=== PATIENT | female | born 1945 | race Caucasian/White ===

== ENCOUNTER 2023-06-09 08:07 | Outpatient (OUT) | payer MEDICARE, SELFPAY ==
[2023-06-09 08:29] LABS: Basophils Absolute Auto 0.1 10^3/uL (0.0-0.1); Basophils Percent Auto 1.6 % (0.2-2.0); Eosinophils Absolute Auto 0.4 10^3/uL (0.0-0.7); Eosinophils Percent Auto 7.4 % (0.9-7.0); Hematocrit 42.4 % (36.0-48.0); Hemoglobin 13.8 g/dL (12.0-16.0); Immature Granulocytes Abs Auto 0.01 10^3/uL (0.00-0.03); Immature Granulocytes Pct Auto 0.2 % (0.0-0.5); Lymphocytes Absolute Auto 1.6 10^3/uL (1.2-3.8); Lymphocytes Percent Auto 30.4 % (20.5-60.0); Mean Corpuscular HGB Conc 32.5 g/dL (29.9-35.2); Mean Corpuscular Hemoglobin 29.7 pg (26.7-34.0); Mean Corpuscular Volume 91.4 fL (81.0-99.0); Mean Platelet Volume 10.7 fL (9.5-13.5); Monocytes Absolute Auto 0.5 10^3/uL (0.3-0.8); Monocytes Percent Auto 9.1 % (1.7-12.0); Neutrophils Absolute Auto 2.7 10^3/uL (1.4-6.5); Neutrophils Percent Auto 51.3 % (43.0-75.0); Platelet Count 252 10^3/uL (150-450); Red Blood Count 4.64 10^6/uL (4.20-5.40); Red Cell Distribution Width 13.2 % (11.0-15.0); White Blood Count 5.2 10^3/uL (4.0-11.0)
[2023-06-09 09:15] LABS: Creatinine Urine Random 65.69 mg/dL (20.00-300.00); Microalbum Creatinine Ratio Ur 19.7 mg/g (0.0-29.9); Microalbumin Urine Random <1.3 mg/dL (<=30.0)
[2023-06-09 09:39] LABS: Potassium 4.1 mmol/L (3.5-5.1); Sodium 143 mmol/L (136-145)
[2023-06-09 09:40] LABS: Alanine Aminotransferase 32 U/L (14-59); Albumin Globulin Ratio 0.9; Albumin Level 3.2 g/dL (3.4-5.0); Alkaline Phosphatase 119 U/L (46-116); Anion Gap 11.3; Aspartate Amino Transferase 23 U/L (15-37); BUN Creatinine Ratio 11.4; Bilirubin Total 0.6 mg/dL (0.2-1.0); Calcium 9.3 mg/dL (8.5-10.1); Carbon Dioxide 29.8 mmol/L (21.0-32.0); Chloride 106 mmol/L (98-107); Estimated GFR (African America >60 (>=60); Estimated GFR (Non-African Ame >60 (>=60); Globulin 3.7 g/dL; Glucose 112 mg/dL (74-106); Total Protein 6.9 g/dL (6.4-8.2); Triglycerides 76 mg/dL (<=150); VLDL CHOLESTEROL 15.2 mg/dL
[2023-06-09 09:41] LABS: Chol HDL Ratio 2.3; Cholesterol 140 mg/dL (<=200); HDL Cholesterol 60 mg/dL (40-60)
== END 2023-06-09 08:08 | disposition home or self-care (01) ==
LOC: LAB 08:11
PROVIDERS: PCP Family Medicine; Visit Provider Family Medicine
DX: Z00.00 Encounter for general adult medical examination without abnormal findings (principal); E11.9 Type 2 diabetes mellitus without complications; Z79.4 Long term (current) use of insulin; E03.9 Hypothyroidism, unspecified; E78.00 Pure hypercholesterolemia, unspecified; I10 Essential (primary) hypertension
CPT/HCPCS: 36415; 80053; 80061; 82043; 82570; 84443; 85025

== ENCOUNTER 2023-07-27 10:20 | Outpatient (OUT) | payer MEDICARE, SELFPAY ==
--- NOTE | 2023-07-27 10:23 | XR_ITS ---
The [address] [address] Patient Name: EMILE EVANS MRN: [id number] date: 1945 Sex: F Assigned Patient Location: [facility] Current Patient Location: [facility] Accession/Order Number: [id number] Exam Date: 07/27/2023 10:37 Report Date: 07/27/2023 11:24 At the request of: ALEIDA PUTNAM Procedure: XR DEXA axial skeleton EXAMINATION: XR DEXA axial skeleton, 07/27/2023 10:37 AM EDT HISTORY: Estrogen Deficiency E28.39 COMPARISON: 2021, 2017, 2015 TECHNIQUE: Dual-energy X-ray absorptiometry (DEXA) bone density study performed for the axial skeleton. HISTORY: Estrogen Deficiency E28.39 FINDINGS: Bone mineral density AP spine L1-L4 measures 1.325 g/sq cm. 2.2% improvement from the prior exam. T score 1.2. WHO classification: Normal. The lowest bone mineral densities in the right femoral neck measuring 0.916 g/sq cm. This is a 2.7% reduction from the prior exam. T score -0.9. WHO classification: Normal XR/XR DEXA axial skeleton IMPRESSION: Normal bone mineral density. Low fracture risk Electronically authenticated by: CORY MATHEWS Date: 07/27/2023 11:24
--- OUTSIDE RECORDS SUMMARY | 2023-07-27 10:43 | XMS_ITS ---
Patient Summarization (C-CDA 2.1 CCD) Created on: July 27, 2023 LESLIE CHILDERS : 1945 Sex: Female Author Organization Sample organization Care Team Providers Care Liquor Clerk Name Role Phone ISABEL, DR CURTIS Admitting Unavailable ISABEL, DR CURTIS Attending Unavailable INDY, DR SHIN Primary Care Unavailable ZIEBER, DR MARK Asher Consulting Unavailable ISABEL, DR CURTIS Consulting Unavailable LANDRY, ANUEL Admitting Unavailable LANDRY, ANUEL Attending Unavailable INDY, DR SHIN Primary Care Unavailable ZIEBER, DR MARK Asher Consulting Unavailable LANDRY, ANUEL Consulting Unavailable ISABEL, DR CURTIS Admitting Unavailable ISABEL, DR CURTIS Attending Unavailable INDY, DR SHIN Primary Care Unavailable ZIEBER, DR MARK Asher Consulting Unavailable ISABEL, DR CURTIS Consulting Unavailable INDY, DR SHIN Primary Care Unavailable REINECK, DR GABE Webster Admitting Unavailabl e REINECK, DR GABE Webster Attending Unavailabl e REINECK, DR GABE Webster Consulting Unavailabl e ZIEBER, DR MARK Asher Consulting Unavailable Indy, MD Paloma Barriga Primary Care Provider DO Tio Amin Attending Provider Paloma Putnam Primary Care Unavailable Tio Amin Attending Unavailable Tio Amin Admitting Unavailable CHAMP HERRERA Attending Unavailable PALOMA PUTNAM Attending Unavailable CHAMP HERRERA Attending Unavailable ARELY ZHOU Attending Unavailable ARELY ZHOU Referring Unavailable ARELY ZHOU Attending Unavailable CHAMP HERRERA Attending Unavailable ARELY ZHOU Referring Unavailable ARELY ZHOU Attending Unavailable ARELY ZHOU Referring Unavailable ARELY ZHOU Referring Unavailable Encounters Encounter Date Encounter Type Care Provider Facility Start: 07-22-2023 End: 07-22-2023 ambulatory ARELY ZHOU Not Available Start: 07-21-2023 End: 07-21-2023 ambulatory ARELY ZHOU Not Available Start: 07-14-2023 End: 07-14-2023 ambulatory ARELY Duggan WINNIE Not Available Start: 07-07-2023 End: 07-07-2023 ambulatory ARELY Duggan WINNIE Not Available Start: 07-02-2023 End: 07-02-2023 ambulatory CHAMP A JAVIER Not Available Start: 06-02-2023 End: 06-02-2023 ambulatory PALOMA PUTNAM Not Available Start: 04-23-2023 End: 04-23-2023 ambulatory CHAMP HERRERA Not Available Start: 04-17-2023 End: 04-17-2023 ambulatory Paloma Putnam Facility:[facility] Start: 01-29-2023 End: 01-29-2023 ambulatory CHAMP HERRERA Not Available Start: 04-15-2022 End: 04-15-2022 ambulatory MD Paloma Putnam Work Phone: [facility] Work Phone: Start: 04-15-2022 End: 04-15-2022 Patient encounter procedure MD Paloma Putnam Work Phone: [facility] Work Phone: Start: 06-04-2021 End: 06-05-2021 ambulatory ANUEL ALATORRE Facility:[facility] Start: 12-12-2020 End: 12-13-[address] KIRSTEN HALL Facility:[facility] Start: 12-07-2020 End: 12-08-[address] KIRSTEN HALL Facility:[facility] Start: 09-12-2020 End: 09-12-[address] PALOMA PUTNAM Facility:[facility] Payers Date Payer Category Payer Self-pay [id number] 2022 Private Health Insurance [id number] 1958 Medicare [id number] 1959 Medicare [id number] 1945 [facility] [id number] 1945 Unknown [id number] 2.16.840.1.700123.3.579.2.593 1945 Unknown [id number] 2.16.840.1.373142.3.579.2.593 1945 Unknown [id number] 2.16.840.1.615919.3.579.2.593 1945 Unknown [id number] 2.16.840.1.063121.3.579.2.125 9 1945 Unknown [id number] 2.16.840.1.229819.3.579.2.125 9 1945 Unknown [id number] 2.16.840.1.775491.3.579.2.125 9 1945 Unknown [id number] 2.16.840.1.005981.3.579.2.125 9 1945 Unknown [id number] 2.16.840.1.113001.3.579.2.125 9 1945 Unknown [id number] 2.16.840.1.171283.3.579.2.125 9 1945 Unknown [id number] 2.16.840.1.801587.3.579.2.125 9 1945 Unknown [id number] 2.16.840.1.932628.3.579.2.125 9 1945 Unknown [id number] 2.16.840.1.736682.3.579.2.125 9 1945 Unknown [id number] 2.16.840.1.428078.3.579.2.125 9 1945 Unknown [id number] 2.16.840.1.662905.3.579.2.125 9 Medicare Medicare Outpatient [id number] [id number] Unknown [place] BC/BS [id number] Unknown [id number] 2.16.840.1.897641.3.579.2.531 Problems Active Problems Problem Classification Problem Date Documented Da te Episodic/Chronic Menopausal disorders (4 sources) Other primary ovarian failure; 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-2021 Chronic Unclassified (1 source) Encounter for screening mammogram for malignant neoplasm of breast; Translations: [Encounter for screening mammogram for malignant neoplasm of breast] Onset: 04-17-2023 Past or Other Problems Problem Classification Problem Date Documented Da te Episodic/Chronic Nonmalignant breast conditions (5 sources) Unspecified lump in the left breast, unspecified quadrant; Translations: [Unspecified lump in the left breast, upper inner quadrant] Onset: 12-12-2020 Episodic Other aftercare (1 source) 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; Translations: [OTH JAIL CURRENT DRUG THERAPY] Onset: 09-14-2020 Episodic Other connective tissue disease (3 sources) Facial weakness; Translations: [FACIAL WEAKNESS] Onset: 09-12-2020 Episodic Other nervous system disorders (1 source) Molina's palsy; 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] Onset: 09-14-2020 Episodic Other screening for suspected conditions (not mental disorders or infectious disease) (5 sources) Other abnormal and inconclusive findings on diagnostic imaging of breast; Translations: [Encounter for screening mammogram for malignant neoplasm of breast] Onset: 12-07-2020 Episodic Residual codes; unclassified (1 source) Family history of malignant neoplasm of digestive organs; Translations: [FAM HX MALIG NEOPLASM DIGESTIV ORGN] Onset: 12-14-2020 Episodic Residual codes; unclassified (1 source) Family history of malignant neoplasm of bladder; Translations: [FAM HX MALIGNANT NEOPLASM BLADDER] Onset: 12-14-2020 Episodic Residual codes; unclassified (1 source) Family history of malignant neoplasm of prostate; Translations: [FAMILY HX MALIG NEOPLASM PROSTATE] Onset: 12-14-2020 Episodic Procedures Date Procedure Procedure Detail Performing Clinician Start: 04-15-2022 Screening mammograph y of bilateral breasts MD Paloma Putnam Work Phone: Results Test Name Value Interpretation Reference Range Facility MM screening mammo BI w/CADo n 04-17-2023 MM screening mammo BI w/CAD [facility] [place] [address] [place] [address] Mammography Report Signed Patient: Leslie Childers MR#: [id number] : 1945 Acct:[id number] Age/Sex: 78 / F ADM Date: 04/17/23 Loc: [place] Room: Type: [facility] Attending Dr: Tio Amin DO Copies to: MD Tio Hernández DO Ordering Provider: Tio Amin DO Date of Service: 04/17/23 MM/MM screening mammo BI w/CAD: SCREENING CLINICAL DATA: Screening for malignancy. SCREENING MAMMOGRAM - FULL FIELD DIGITAL WITH TOMOSYNTHESIS AND CAD COMPARISON:Mammograms dating back to 2020. Tomosynthesis craniocaudal and mediolateral oblique views of both breasts were obtained using low- dose digital technique. This examination was reviewed with the aid of CAD. FINDINGS: The breast tissue is composed of scattered fibroglandular densities. There are no dominant masses, typically malignant calcifications or architectural distortion. There has been no significant interval change. MM/MM screening mammo BI w/CAD IMPRESSION: NO MAMMOGRAPHIC EVIDENCE OF MALIGNANCY. ROUTINE FOLLOW-UP IS RECOMMENDED IN ONE YEAR. RESULT CODE: 1 Negative DENSITY CODE: 2 (approximately 25-50% glandular) FOLLOW UP: 1YR The false-negative rate of mammography is approximately 10-percent. Management of a palpable abnormality must be based on clinical grounds. Patient was entered into a reminder system with a target due date for the next mammogram. Impression dictated by: Iglesia Katz Jr., D.O.04/17/2023 12:21 PM Dictation Location: [facility] Transcribed By: [facility] 04/17/23 1221 Dictated By: Iglesia Katz Jr, DO 04/17/23 1220 Signed By: 04/17/23 1221 [facility] XR DEXA BONE DENSITYon 06-04 XR DEXA BONE DENSITY EXAMINATION: XR DEXA BONE DENSITY, 06/04/2021 9:56 AM EDT HISTORY: Primary ovarian failure COMPARISON: DEXA bone densitometry 10/29/2017 TECHNIQUE: Dual-energy X-ray absorptiometry (DEXA) bone density study performed for the axial skeleton. FINDINGS: SPINE ANALYSIS: Average bone mineral density is 1.296 g/cm2. T-score (standard deviation relative to young adult mean): 1.0 . +5.2% change since prior study. HIP ANALYSIS: Lowest bone mineral density is within the right femoral neck, 0.941 g/cm2. T-score (standard deviation relative to young adult mean): -0.7 . -3.0% change since prior study. IMPRESSION: [employer] Classification: Normal - Low Fracture Risk Electronically authenticated by: MARK CHARLES Date: 2021-06-04 10:25 Normal [facility] Complete Blood Count with Au to Diffon 01-31-2021 Basophils (Bld) [#/Vol] 0.06 10*3/uL Normal 0.00-0.20 [facility] Specialist Comment on above: Performed By: #### C BCAD, CMP, LIPD, TSH #### [facility] [address] [place], [place] [id number] Basophils/100 WBC (Bld) 1.2 % Normal [facility] Specialist Comment on above: Performed By: #### C BCAD, CMP, LIPD, TSH #### [facility] [address] [place], [place] [id number] Eosinophils (Bld) [#/Vol] 0.22 10*3/uL Normal 0.02-0.50 [facility] Specialist Comment on above: Performed By: #### C BCAD, CMP, LIPD, TSH #### [facility] [address] [place], [place] [id number] Eosinophils/100 WBC (Bld) 4.4 % Normal [facility] Specialist Comment on above: Performed By: #### C BCAD, CMP, LIPD, TSH #### [facility] [address] [place], [place] [id number] Erythrocyte distribution width (RBC) [Ratio] 13.2 % Normal 11.0-15.0 [facility] Specialist Comment on above: Performed By: #### C BCAD, CMP, LIPD, TSH #### [facility] [address] [place], [place] [id number] Hematocrit (Bld) [Volume fraction] 48.5 % High 35.0-47.0 [facility] Specialist Comment on above: Performed By: #### C BCAD, CMP, LIPD, TSH #### [facility] [address] [place], [place] [id number] Hemoglobin (Bld) [Mass/Vol] 15.7 g/dL High 11.6-15.5 [facility] Specialist Comment on above: Performed By: #### C BCAD, CMP, LIPD, TSH #### [facility] [address] [place], [place] [id number] Lymphocytes (Bld) [#/Vol] 1.3 10*3/uL Normal 0.9-3.9 [facility] Specialist Comment on above: Performed By: #### C BCAD, CMP, LIPD, TSH #### [facility] [address] [place], [place] [id number] Lymphocytes/100 WBC (Bld) 26.9 % Normal [facility] Specialist Comment on above: Performed By: #### C BCAD, CMP, LIPD, TSH #### [facility] [address] [place], [place] [id number] MCH (RBC) [Entitic mass] 29.6 pg Normal 27.0-33.0 [facility] Specialist Comment on above: Performed By: #### C BCAD, CMP, LIPD, TSH #### [facility] [address] [place], [place] [id number] MCHC (RBC) [Mass/Vol] 32.4 g/dL Normal 32.0-36.0 [facility] Specialist Comment on above: Performed By: #### C BCAD, CMP, LIPD, TSH #### [facility] [address] [place], [place] [id number] MCV (RBC) [Entitic vol] 92 fL Normal 80-100 [facility] Specialist Comment on above: Performed By: #### C BCAD, CMP, LIPD, TSH #### [facility] [address] [place], [place] [id number] Monocytes (Bld) [#/Vol] 0.4 10*3/uL Normal 0.2-0.9 [facility] Specialist Comment on above: Performed By: #### C BCAD, CMP, LIPD, TSH #### [facility] [address] [place], [place] [id number] Monocytes/100 WBC (Bld) 7.4 % Normal [facility] Specialist Comment on above: Performed By: #### C BCAD, CMP, LIPD, TSH #### [facility] [address] [place], [place] [id number] Neutrophils (Bld) [#/Vol] 3.0 10*3/uL Normal 1.5-7.8 [facility] Specialist Comment on above: Performed By: #### C BCAD, CMP, LIPD, TSH #### [facility] [address] [place], [place] [id number] Neutrophils/100 WBC (Bld) 59.7 % Normal [facility] Specialist Comment on above: Performed By: #### C BCAD, CMP, LIPD, TSH #### [facility] [address] [place], [place] [id number] Platelet mean volume (Bld) [Entitic vol] 12.20 fL Normal 7.50-12.50 [facility] Specialist Comment on above: Performed By: #### C BCAD, CMP, LIPD, TSH #### [facility] [address] [place], [place] [id number] Platelets (Bld) [#/Vol] 167 10*3/uL Normal 140-400 [facility] Specialist Comment on above: Performed By: #### C BCAD, CMP, LIPD, TSH #### [facility] [address] [place], [place] [id number] RBC (Bld) [#/Vol] 5.30 10*6/uL High 3.90-5.20 [facility] Specialist Comment on above: Performed By: #### C BCAD, CMP, LIPD, TSH #### [facility] [address] [place], [place] [id number] RDW-SD 44.4 fL Normal 37.0-50.0 [facility] Specialist Comment on above: Performed By: #### C BCAD, CMP, LIPD, TSH #### [facility] [address] [place], [place] [id number] WBC (Bld) [#/Vol] 5.0 10*3/uL Normal 3.8-11.0 [facility] Tests Superintendent Comment on above: Performed By: #### C BCAD, CMP, LIPD, TSH #### [facility] [address] [place], [place] [id number] Comprehensive Metabolic Pane alexx 01-31-2021 Albumin [Mass/Vol] 4.4 g/dL Normal 3.6-5.1 [facility] Tests Superintendent Comment on above: Performed By: #### C BCAD, CMP, LIPD, TSH #### [facility] [address] [place], [place] [id number] Albumin/Globulin [Mass ratio] 1.9 {ratio} Normal 1.0-2.5 [facility] Specialist Comment on above: Performed By: #### C BCAD, CMP, LIPD, TSH #### [facility] [address] [place], [place] [id number] ALP [Catalytic activity/Vol] 106 U/L Normal 35-119 [facility] Specialist Comment on above: Performed By: #### C BCAD, CMP, LIPD, TSH #### [facility] [address] [place], [place] [id number] ALT [Catalytic activity/Vol] 16 U/L Normal 6-33 [facility] Specialist Comment on above: Result Comment: 01/16 Female reference range changed. Performed By: #### C BCAD, CMP, LIPD, TSH #### [facility] [address] [place], [place] [id number] Anion gap [Moles/Vol] 20 mmol/L Normal 12-20 [facility] Specialist Comment on above: Result Comment: Effe ctive 02/21/2019 reference range changed. Performed By: #### C BCAD, CMP, LIPD, TSH #### [facility] [address] [place], [place] [id number] AST [Catalytic activity/Vol] 22 U/L Normal 9-34 [facility] Specialist Comment on above: Performed By: #### C BCAD, CMP, LIPD, TSH #### [facility] [address] [place], [place] [id number] Bilirubin [Mass/Vol] 0.49 mg/dL Normal 0.30-1.20 [facility] Specialist Comment on above: Performed By: #### C BCAD, CMP, LIPD, TSH #### [facility] [address] [place], [place] [id number] BUN/CREA 15 Ratio Normal 6-22 [facility] Specialist Comment on above: Performed By: #### C BCAD, CMP, LIPD, TSH #### [facility] [address] [place], [place] [id number] Calcium [Mass/Vol] 10.1 mg/dL Normal 8.6-10.2 [facility] Comment on above: Performed By: #### C BCAD, CMP, LIPD, TSH #### [facility] [address] [place], [place] [id number] Chloride [Moles/Vol] 106 mmol/L Normal 98-107 [facility] Specialist Comment on above: Performed By: #### C BCAD, CMP, LIPD, TSH #### [facility] [address] [place], [place] [id number] CO2 [Moles/Vol] 21 mmol/L Normal 20-31 [facility] Specialist Comment on above: Performed By: #### C BCAD, CMP, LIPD, TSH #### [facility] [address] [place], [place] [id number] Creatinine [Mass/Vol] 0.8 mg/dL Normal 0.6-1.4 [facility] Comment on above: Performed By: #### C BCAD, CMP, LIPD, TSH #### [facility] [address] [place], [place] [id number] eGFRAA 84 mL/min/1.73m2 Normal >60 [facility] Specialist Comment on above: Performed By: #### C BCAD, CMP, LIPD, TSH #### [facility] [address] [place], [place] [id number] eGFRNAA 69 mL/min/1.73m2 Normal >60 [facility] Specialist Comment on above: Performed By: #### C BCAD, CMP, LIPD, TSH #### [facility] [address] [place], [place] [id number] Globulin (S) [Mass/Vol] 2.3 g/dL Normal 1.9-3.7 [facility] Tests Superintendent Comment on above: Performed By: #### C BCAD, CMP, LIPD, TSH #### [facility] [address] [place], [place] [id number] Glucose [Mass/Vol] 106 mg/dL High 65-99 [facility] Tests Superintendent Comment on above: Result Comment: For FASTING Glucose --- ADA reference ranges: Normal 65-99 mg/dl Prediabetes 100-125 Diabetes >/= 126 Performed By: #### C BCAD, CMP, LIPD, TSH #### [facility] [address] [place], [place] [id number] Potassium [Moles/Vol] 4.7 mmol/L Normal 3.5-5.5 [facility] Tests Superintendent Comment on above: Performed By: #### C BCAD, CMP, LIPD, TSH #### [facility] [address] [place], [place] [id number] Protein [Mass/Vol] 6.7 g/dL Normal 6.1-8.1 [facility] Tests Superintendent Comment on above: Performed By: #### C BCAD, CMP, LIPD, TSH #### [facility] [address] [place], [place] [id number] Sodium [Moles/Vol] 142 mmol/L Normal 135-146 [facility] Tests Superintendent Comment on above: Performed By: #### C BCAD, CMP, LIPD, TSH #### [facility] [address] [place], [place] [id number] Urea nitrogen [Mass/Vol] 12 mg/dL Normal 7-25 [facility] Tests Superintendent Comment on above: Performed By: #### C BCAD, CMP, LIPD, TSH #### [facility] [address] [place], [place] [id number] Hemoglobin A1Con 01-31-2021 EAG 128.37 Normal [facility] Tests Superintendent Comment on above: Performed By: #### A 1C #### [facility] [address] [place], [place] [id number] HbA1c (Bld) [Mass fraction] 6.1 % High 4.0-6.0 [facility] Specialist Comment on above: Performed By: #### A 1C #### [facility] [address] [place], [place] [id number] Lipid Panelon 01-31-2021 Cholesterol [Mass/Vol] 155 mg/dL Normal 125-200 [facility] Specialist Comment on above: Result Comment: Low risk < 200mg/dL Borderline risk 201-239 mg/dl High risk > or equal to 240 Performed By: #### C BCAD, CMP, LIPD, TSH #### [facility] [address] [place], [place] [id number] Cholesterol in HDL [Mass/Vol] 59 mg/dL Normal >40 [facility] Specialist Comment on above: Result Comment: High Cardiovascular Risk HDL <40 mg/dL Low Cardiovascular Risk HDL > or equal to 60 mg/dl Performed By: #### C BCAD, CMP, LIPD, TSH #### [facility] [address] [place], [place] [id number] Cholesterol in LDL [Mass/Vol] 72 mg/dL Normal [facility] Specialist Comment on above: Result Comment: LDL ATP III CLASSIFICATION LDL less than 100 mg/dl Optimal LDL 100-129 mg/dl Near or above optimal LDL 130-159 Borderline high LDL 160-189 High LDL greater than 189 mg/dl Very High Performed By: #### C BCAD, CMP, LIPD, TSH #### [facility] [address] [place], [place] [id number] Cholesterol in VLDL [Mass/Vol] 24 mg/dL Normal [facility] Specialist Comment on above: Performed By: #### C BCAD, CMP, LIPD, TSH #### [facility] [address] [place], [place] [id number] Cholesterol.total/C holesterol in HDL [Mass ratio] 3 {ratio} Normal [facility] Specialist Comment on above: Performed By: #### C BCAD, CMP, LIPD, TSH #### [facility] [address] [place], [place] [id number] Triglyceride [Mass/Vol] 120 mg/dL Normal 30-150 [facility] Specialist Comment on above: Result Comment: TRIG ATPIII CLASSIFICATIONS TRIG less than 150 mg/dl Normal TRIG 150-199 mg/dl Borderline High TRIG 200-500 mg/dl High TRIG greather than 500 mg/dl Very High Performed By: #### C BCAD, CMP, LIPD, TSH #### [facility] [address] [place], [place] [id number] Microalbumin (with Creat)on 01-31-2021 mALB <1.2 Low [facility] Specialist Comment on above: Result Comment: Unab le to calculate mALB/Crea ratio, mALB is <1.2 mg/dL mALB reference range not established. Performed By: #### m ALBC #### [facility] [address] [place], [place] [id number] UCREA 88 mg/dL Normal 28-217 [facility] Specialist Comment on above: Performed By: #### m ALBC #### [facility] [address] [place], [place] [id number] TSHon 01-31-2021 TSH 1.190 uIU/mL Normal 0.400-4.500 [facility] Tests Superintendent Comment on above: Performed By: #### C BCAD, CMP, LIPD, TSH #### [facility] [address] [place], [place] [id number] US BREAST LEFT LIMITEDon US BREAST LEFT LIMITED Patient: LESLIE CHILDERS Exam Date: 12/12/2020 : 1945 Gender:F Ordering : DR KIRSTEN HALL Admission #: [id number] Family : Order #: [id number] CLICK HERE TO VIEW EXAM RADIOLOGY REPORT PROCEDURE: ULTRASOUND BREAST LEFT LIMITED COMPARISON: MG MAMM SCREEN DURAN W CAD, 11/29/2018. MG MAMM SCREEN DURAN W CAD, 12/06/2019. MG MAMM SCREEN 3D DURAN CAD, 12/07/2020. INDICATIONS: Lump in left breast TECHNIQUE: Breast ultrasound was performed, with evaluation focusing only on specific areas of concern. FINDINGS: DIAGNOSTIC CATEGORY 4--SUSPICIOUS FOR MALIGNANCY BUT FINDING DOES NOT EXHIBIT CLASSIC FINDINGS OF BREAST CANCER: LEFT BREAST: Oval 11 x 8 x 5 mm slightly heterogeneous hypoechoic lesion at the 12 o'clock position 8.6 cm from nipple versus artifact from fat intermixed with surrounding echogenic tissue. It is inconclusive if this area correlates with the recent mammographic finding, and the area is well demonstrated on the recent mammogram so stereotactic guided biopsy is recommended. RECOMMENDATIONS: STEREOTACTIC BREAST BIOPSY: LEFT BREAST PLEASE NOTE: A NORMAL ULTRASOUND EXAMINATION DOES NOT EXCLUDE THE POSSIBILITY OF BREAST CANCER. A CLINICALLY SUSPICIOUS PALPABLE LUMP SHOULD BE BIOPSIED. Dictated by: Mark Charles M.D. on 12/12/2020 at 10:25 Approved by: Mark Charles M.D. on 12/12/2020 at 10:29 Normal [facility] MG MAMM SCREEN 3D DURAN CADon 12-07-2020 MG MAMM SCREEN 3D DURAN CAD Patient: LESLIE CHILDERS Exam Date: 12/07/2020 : 1945 Gender:F Ordering : DR KIRSTEN HALL Admission #: [id number] Family : Order #: [id number] CLICK HERE TO VIEW EXAM RADIOLOGY REPORT PROCEDURE: MAMMOGRAM SCREENING 3D BILATERAL CAD COMPARISON: MG MAMM SCREEN DURAN W CAD, 12/06/2019. MG MAMM SCREEN DURAN W CAD, 11/29/2018. INDICATIONS: Screening mammography Calculator Name NCI Breast Cancer Risk Assessment Tool 5 Year Breast Cancer Risk 1.30% Lifetime Breast Cancer Risk 3.00% Personal Breast Cancer No Personal Ovarian Cancer No Treatments None Family Cancers Brother with throat cancer at age 61; Father with prostates /bladder cancer at age 70. LOCATION: [facility] BREAST COMPOSITION: Heterogeneously dense,which may obscure small masses. FINDINGS: DIAGNOSTIC CATEGORY 0--INCOMPLETE ASSESSMENT: NEED ADDITIONAL IMAGING EVALUATION. RIGHT BREAST: No significant suspicious finding. No significant change has occurred. LEFT BREAST: 8 x 5 x 5 mm mass within the posterior upper inner quadrant. Ultrasound evaluation is recommended. RECOMMENDATIONS: ULTRASOUND: LEFT BREAST PLEASE NOTE: A NORMAL MAMMOGRAM DOES NOT EXCLUDE THE POSSIBILITY OF BREAST CANCER. A CLINICALLY SUSPICIOUS PALPABLE LUMP SHOULD BE BIOPSIED. Dictated by: Mark Charles M.D. on 12/07/2020 at 14:38 Approved by: Mark Charles M.D. on 12/07/2020 at 14:44 Normal [facility] CBC AUTO DIFFon 09-12-2020 BASO # 0.1 103/ul Normal 0.0-0.1 [facility] Comment on above: Performed By: #### C BC #### [facility] [address] [place] [address] Yessy Janelle Basophils/100 WBC (Bld) 1.2 % Normal 0.2-2.0 [facility] Comment on above: Performed By: #### C BC #### [facility] [address] [place] [address] Yessy Janelle EO # 0.2 103/ul Normal 0.0-0.7 [facility] Comment on above: Performed By: #### C BC #### [facility] [address] [place] [address] Yessy Janelle Eosinophils/100 WBC (Bld) 3.2 % Normal 0.9-7.0 [facility] Comment on above: Performed By: #### C BC #### [facility] [address] [place] [address] Yessy Janelle Erythrocyte distribution width (RBC) [Ratio] 13.5 % Normal 11.0-15.0 [facility] Comment on above: Performed By: #### C BC #### [facility] [address] [place] [address] Yessy Janelle Hematocrit (Bld) [Volume fraction] 46.2 % Normal 36.0-48.0 [facility] Comment on above: Performed By: #### C BC #### [facility] [address] [place] [address] Yessy Janelle Hemoglobin (Bld) [Mass/Vol] 15.1 g/dL Normal 12.0-16.0 [facility] Comment on above: Performed By: #### C BC #### [facility] [address] [place] [address] Yessy Janelle IG # 0.03 10e3/ul Normal 0.00-0.03 [facility] Comment on above: Performed By: #### C BC #### [facility] [address] [place] [address] Yessy Janelle IG % 0.4 % Normal 0.0-0.5 [facility] Comment on above: Performed By: #### C BC #### [facility] [address] [place] [address] Yessy Janelle LYMPH # 1.4 103/ul Normal 1.2-3.8 [facility] Comment on above: Performed By: #### C BC #### [facility] [address] [place], [place] [id number] Yessy Luis Lymphocytes/100 WBC (Bld) 20.3 % Critically low 20.5-60.0 [facility] Comment on above: Performed By: #### C BC #### [facility] [address] [place], [place] [id number] Yessy Luis MANUAL DIFF REQ NO Normal [facility] Comment on above: Performed By: #### C BC #### [facility] [address] [place], [place] [id number] Yessy Luis MCH (RBC) [Entitic mass] 29.3 pg Normal 26.7-34.0 [facility] Comment on above: Performed By: #### C BC #### [facility] [address] [place] [address] Yessy Luis MCHC (RBC) [Mass/Vol] 32.7 g/dL Normal 29.9-35.2 [facility] Comment on above: Performed By: #### C BC #### [facility] [address] [place], [place] [id number] Yessy uLis MCV (RBC) [Entitic vol] 89.5 fL Normal 81.0-99.0 [facility] Comment on above: Performed By: #### C BC #### [facility] [address] [place], [place] [address] Yessy Luis MONO # 0.8 103/ul Normal 0.3-0.8 [facility] Comment on above: Performed By: #### C BC #### [facility] [address] [place], [place] [id number] Yessy Luis Monocytes/100 WBC (Bld) 10.9 % Normal 1.7-12.0 [facility] Comment on above: Performed By: #### C BC #### [facility] [address] [place] [address] Yessy Janelle NEUT # 4.4 103/ul Normal 1.4-6.5 [facility] Comment on above: Performed By: #### C BC #### [facility] [address] [place], [place] [address] Yessy Luis Neutrophils/100 WBC (Bld) 64.0 % Normal 43.0-75.0 [facility] Comment on above: Performed By: #### C BC #### [facility] [address] [place], [place] [address] Yessy Luis Platelet mean volume (Bld) [Entitic vol] 10.6 fL Normal 9.5-13.5 [facility] Comment on above: Performed By: #### C BC #### [facility] [address] [place], [place] [address] Yessy Janelle PLT 232 103/ul Normal 150-450 [facility] Comment on above: Performed By: #### C BC #### [facility] [address] [place] [address] Yessy Janelle RBC 5.16 106/ul Normal 4.20-5.40 [facility] Comment on above: Performed By: #### C BC #### [facility] [address] [place], [place] [address] Yessylinda Lynneen WBC 6.9 103/ul Normal 4.0-11.0 [facility] Comment on above: Performed By: #### C BC #### [facility] [address] [place] [address] STROKE HEAD WOon 09-13-19 CT STROKE HEAD WO EXAMINATION: CT STROKE HEAD WO, 09/12/2020 12:58 PM EDT HISTORY: Weakness of face muscles COMPARISON: None. TECHNIQUE: CT scan of the head was performed without IV contrast. CT dose reduction technique was used, including Automated Exposure Control. FINDINGS: BRAIN: No edema, hemorrhage, mass, acute infarction, or inappropriate atrophy. CSF SPACES: No hydrocephalus, subarachnoid hemorrhage, or mass. Appropriate for age. SKULL: No fracture, mass, or other significant visible lesion. SINUSES: No significant mucosal thickening or fluid on the limited views. ORBITS: No appreciable abnormality on the limited views. OTHER: Negative IMPRESSION: 1. No intracranial hemorrhage or CT evidence of acute ischemia. 2. Minimal age-related chronic changes. Findings discussed with Liana via telephone to be provided to Dr. Encinas. Electronically authenticated by: MARK CHARLES Date: 2020-09-12 13:08 Normal [facility] PROF CHEM 8 (BAS METB)on Anion gap [Moles/Vol] 9.1 mmol/L Normal [facility] Comment on above: Performed By: #### B MP #### [facility] [address] [place] [address] Yessy Janelle Calcium [Mass/Vol] 9.3 mg/dL Normal 8.4-10.2 [facility] Comment on above: Performed By: #### B MP #### [facility] [address] [place] [address] Yessy Janelle Chloride [Moles/Vol] 106 mmol/L Normal 98-107 [facility] Comment on above: Performed By: #### B MP #### [facility] [address] [place] [address] Yessy Janelle CO2 [Moles/Vol] 31.2 mmol/L Critically high 22.0-30.0 [facility] Comment on above: Performed By: #### B MP #### [facility] [address] [place] [address] Yessy Janelle Creatinine [Mass/Vol] 1.04 mg/dL Normal 0.52-1.04 [facility] Comment on above: Performed By: #### B MP #### [facility] [address] [place], [place] [id number] Yessy Janelle EGFR-AF BANGLADESHI >60 Normal >=60 [facility] Comment on above: Performed By: #### B MP #### [facility] [address] [id number] Yessy Janelle EGFR-NON AF BANGLADESHI 52 mL/min/1.73m2 Critically low >=60 [facility] Comment on above: Performed By: #### B MP #### [facility] [address] [place] [address] Yessy Janelle Glucose [Mass/Vol] 106 mg/dL Normal 74-106 [facility] Comment on above: Performed By: #### B MP #### [facility] [address] [place], [place] [address] Yessy Janelle Potassium [Moles/Vol] 4.3 mmol/L Normal 3.4-5.0 [facility] Comment on above: Performed By: #### B MP #### [facility] [address] [place], [place] [address] Yessy Janelle Sodium [Moles/Vol] 142 mmol/L Normal 137-145 [facility] Comment on above: Performed By: #### B MP #### [facility] [address] [place], [place] [address] Yessy Janelle Urea nitrogen [Mass/Vol] 17.0 mg/dL Normal 7.0-17.0 [facility] Comment on above: Performed By: #### B MP #### [facility] [address] [place], [place] [address] Yessy Janelle Urea nitrogen/Creatinine [Mass ratio] 16.3 mg/mg Normal [facility] Comment on above: Performed By: #### B MP #### [facility] [address] [place], [place] [address] Yessy Janelle Social History Date Type Detail Facility Start: 1945 Sex Assigned At Female F [facility] Tobacco smoking stat NHIS Unknown if ever smoked [facility] Work Phone: Clinical Note 07-22-2023 Note Date & Type Note Facility 07-22-2023 Note PROCEDURE: Utilizing imaging standards for Arthrex protocol, axial thin section imaging through the shoulder was performed without contrast administration. FINDINGS: Severe glenohumeral arthritis, elevated humeral head consistent with rotator cuff tendon tear. Normal right upper chest. IMPRESSION: Presurgical planning, severe right shoulder arthritis TRANSCRIBED BY: ELECTRONICALLY SIGNED BY: Iglesia Fernandez MD Not Available Comment on above: Order Comment: CT RT shoulder without ARTHREX VIP PROTOCAL. [facility] Evaluation note Note Date & Type Note Facility Evaluation note No assessment information availa ble [facility] Work Phone: Summary Purpose Family History No Family History Records FoundNo Family History Records FoundNo Family History Records FoundNo Family History Records Found Advance Directives No Advanced Directives Records Found Advance Directive Response Recorded Date/ Time Advance Directives No December 11:13am Chief Complaint and Reason for Visit Chief Complaint Z12.31 Additional Source Comments INFORMATION SOURCE (unrecogn ized section and content) DATE CREATED AUTHOR 02/01/2021 [facility] DATE CREATED AUTHOR AUTHOR'S ORGANIZ ATION 06/08/2021 [facility] DATE CREATED AUTHOR AUTHOR'S ORGANIZ ATION 04/21/2023 [facility] DATE CREATED AUTHOR AUTHOR'S ORGANIZ ATION 07/26/2023 [facility] EPIC Care Teams (unrecognized sec tion and content) Team Status: Inactive Member Role Status Dates Paloma Putnam MD Primary Care Provider Active Tio Amin DO Attending Provider Active Team Status: Active Member Role Status Dates Paloma Putnam MD Primary Care Provider Active Goals (unrecognized section and content) Goals may be documented in a n alternate section FOR RECORDS PERTAINING TO PATIENTS WHO ARE OR HAVE BEEN ENROLLED IN A CHEMICAL DEPENDENCY/SUBSTANCEABUSE PROGRAM, SOME INFORMATION MAY BE OMITTED. This clinical summary was aggregated from multiple sources. Caution should be exercised in using it in the provision of clinical care. This summary normalizes information from multiple sources, and as a consequence, information in this document may materially change the coding, format and clinical context of patient data. In addition, data may be omitted in some cases. CLINICAL DECISIONS SHOULD BE BASED ON THE PRIMARY CLINICAL RECORDS. [facility] [employer] [facility]. provides no warranty or guarantee of the accuracy or completeness of information in this document.
== END 2023-07-27 10:21 | disposition home or self-care (01) ==
LOC: RAD 10:20
PROVIDERS: PCP Family Medicine; Visit Provider Family Medicine
DX: E28.39 Other primary ovarian failure (principal)
CPT/HCPCS: 77080

== ENCOUNTER 2024-06-16 08:48 | Outpatient (OUT) | payer MEDICARE, SELFPAY ==
[2024-06-16 09:16] LABS: Basophils Absolute Auto 0.1 10^3/uL (0.0-0.1); Basophils Percent Auto 1.3 % (0.2-2.0); Eosinophils Absolute Auto 0.3 10^3/uL (0.0-0.7); Eosinophils Percent Auto 6.3 % (0.9-7.0); Hematocrit 41.6 % (36.0-48.0); Hemoglobin 13.7 g/dL (12.0-16.0); Immature Granulocytes Abs Auto 0.02 10^3/uL (0.00-0.03); Immature Granulocytes Pct Auto 0.4 % (0.0-0.5); Lymphocytes Absolute Auto 1.1 10^3/uL (1.2-3.8); Lymphocytes Percent Auto 22.3 % (20.5-60.0); Mean Corpuscular HGB Conc 32.9 g/dL (29.9-35.2); Mean Corpuscular Hemoglobin 29.8 pg (26.7-34.0); Mean Corpuscular Volume 90.6 fL (81.0-99.0); Mean Platelet Volume 10.8 fL (9.5-13.5); Monocytes Absolute Auto 0.4 10^3/uL (0.3-0.8); Monocytes Percent Auto 8.4 % (1.7-12.0); Neutrophils Absolute Auto 2.9 10^3/uL (1.4-6.5); Neutrophils Percent Auto 61.3 % (43.0-75.0); Platelet Count 244 10^3/uL (150-450); Red Blood Count 4.59 10^6/uL (4.20-5.40); Red Cell Distribution Width 13.2 % (11.0-15.0); White Blood Count 4.8 10^3/uL (4.0-11.0)
[2024-06-16 11:24] LABS: Anion Gap 11.8; BUN Creatinine Ratio 16.5; Bilirubin Total 0.5 mg/dL (0.2-1.0); Calcium 8.9 mg/dL (8.5-10.1); Carbon Dioxide 29.3 mmol/L (21.0-32.0); Chloride 105 mmol/L (98-107); Estimated GFR (African America >60 (>=60 mL/min/1.73m^2); Estimated GFR (Non-African Ame >60 (>=60 mL/min/1.73m^2); Glucose 115 mg/dL (74-106); Potassium 4.1 mmol/L (3.5-5.1); Sodium 142 mmol/L (136-145)
[2024-06-16 11:25] LABS: Alanine Aminotransferase 29 U/L (14-59); Albumin Level 3.4 g/dL (3.4-5.0); Alkaline Phosphatase 118 U/L (46-116); Aspartate Amino Transferase 25 U/L (15-37); Chol HDL Ratio 2.2; Cholesterol 128 mg/dL (<=200); Globulin 3.5 g/dL; HDL Cholesterol 59 mg/dL (40-60); Total Protein 6.9 g/dL (6.4-8.2); Triglycerides 71 mg/dL (<=150); VLDL CHOLESTEROL 14.2 mg/dL
[2024-06-16 11:26] LABS: TSH W/ REFLEX FT4 0.158 uIU/mL (0.358-3.740)
[2024-06-16 12:10] LABS: Free T4 1.91 ng/dL (0.76-1.46)
[2024-06-16 12:33] LABS: Creatinine Urine Random 21.24 mg/dL (20.00-300.00); Microalbum Creatinine Ratio Ur 61.2 mg/g (0.0-29.9); Microalbumin Urine Random <1.3 mg/dL (<=30.0)
== END 2024-06-16 08:49 | disposition home or self-care (01) ==
LOC: LAB 08:50
PROVIDERS: PCP Family Medicine; Visit Provider Family Medicine
DX: Z00.00 Encounter for general adult medical examination without abnormal findings (principal); I10 Essential (primary) hypertension; E03.9 Hypothyroidism, unspecified; E11.9 Type 2 diabetes mellitus without complications; Z79.4 Long term (current) use of insulin; E78.00 Pure hypercholesterolemia, unspecified
CPT/HCPCS: 36415; 80053; 80061; 82043; 82570; 84439; 84443; 85025

== ENCOUNTER 2024-10-31 13:44 | Outpatient (OUT) | payer MEDICARE, SELFPAY ==
--- NOTE | 2024-10-31 14:00 | CA_ITS ---
Patient Name: EMILE EVANS MR#: [id number] : 1945 Exam Date: 10/31/2024 Ordering Doctor: DR ALEIDA PUTNAM M.D. ECHOCARDIOGRAM REPORT PROCEDURE: CA ECHO DOPPLER COMPLETE INDICATIONS: Heart murmur, hypertension COMPARISON: None. DESCRIPTION: COMPLETE ECHOCARDIOGRAM Real-time transthoracic echocardiography with 2D, M-mode, spectral and color flow Doppler performed. QUALITY: Technical quality was good. LEFT VENTRICLE: Normal chamber size. Normal left ventricular wall thickness. LV EF: Global left ventricular systolic function is hyperdynamic; visually estimated ejection fraction is 65 to 70%. No significant wall motion abnormalities. DIASTOLIC: Normal diastolic function. ATRIAL SEPTUM: Visually appears intact. LEFT ATRIUM: Normal chamber size. RIGHT ATRIUM: Normal chamber size. RIGHT VENTRICLE: Normal chamber size. Normal right ventricular systolic function. TRICUSPID VALVE: Normal mobility and thickness. Mild to moderate regurgitation. Doppler studies reveal mildly (35-45) elevated right sided pressures. RVSP 37 mmHg MITRAL VALVE: Normal mobility and thickness. No evidence of mitral valve stenosis. There is no mitral annular calcification. No mitral regurgitation. AORTIC VALVE: Normal trileaflet appearance. No visible sclerosis. Normal leaflet mobility. No evidence of aortic valve stenosis. Trivial aortic regurgitation. AORTIC ROOT: Normal diameter and appearance. PULMONIC VALVE: Not well visualized. No stenosis. No regurgitation. PERICARDIUM: Anterior free space; trivial effusion versus fat pad. IVC: Collapses with inspiration. IVC is normal in size. CONCLUSION: Global left ventricular systolic function is hyperdynamic; visually estimated ejection fraction 65 to 70% Normal right ventricular size and systolic function The left atrium is normal in size Normal diastolic function Mild to moderate tricuspid regurgitation Moderately elevated right ventricular systolic pressure; RVSP 37 mmHg Anterior free space; trivial effusion versus fat pad Adult Echocardiography Procedure Report Left Ventricle LVEDD (3.7 - 5.6 cm): 4.05 cm LVESD (2.2 - 4.0 cm): 2.55 cm LVIVS thickness (0.6 - 1.2 cm): 1.02 cm LVPW thickness (0.5 - 1.0 cm): 1.05 cm e': 0.07 m/s E - e': 9.87 LVOT Max Gradient: 3.61 mm[Hg] LVOT Area (cm2): 0.95 m/s Peak Velocity (LVOT): 0.95 m/s Mean Velocity (LVOT): LVOT Diameter 2.03 cm Left Ventricular Ejection Fraction: 72.01 % Left Atrium LA Volume Index (2D A2C): 27.83 ml/m2 Left Atrium Systolic Dimension: 4.08 cm Mitral Valve MV E to A Ratio: 0.81 MV Max Gradient: MV Mean Gradient: Mitral Valve A-Wave Peak Velocity: 0.91 m/s Mitral Valve E-Wave Peak Velocity: 0.73 m/s Cardiovascular Orifice Area: Right Ventricle RV Internal Diastolic Dimension: Aorta AO Root Diam: 2.88 cm Ascending Ao Diam: Aortic Valve AoV Area (Peak You): 3.20 cm2, 3.20 cm2 AoV Area (VTI): Deceleration Summit: Pressure Half-Time: Peak Velocity(Antegrade Flow): 0.96 m/s Peak Gradient(Antegrade Flow): 3.70 mm[Hg] Mean Velocity(Antegrade Flow): Mean Gradient(Antegrade Flow): Velocity Time Integral: Tricuspid Valve Peak Velocity (Regurgitant Flow): 2.91 m/s Peak Velocity: Pulmonic Valve Mean Gradient: Mean Velocity: Peak Velocity: 1.00 m/s Peak Gradient: 4.02 mm[Hg] Right Atrium Right Atrium Systolic Pressure: 36.55 ml, 36.55 ml Dictated by: Miguel Angel Almendarez M.D. on 11/01/2024 at 16:27 Approved by: Miguel Angel Almendarez M.D. on 11/01/2024 at 16:30
--- OUTSIDE RECORDS SUMMARY | 2024-10-31 18:01 | XMS_ITS | CCD ---
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 Name Role Phone ISABEL, DR CURTIS Admitting Unavailable ISABEL, DR CURTIS Attending Unavailable INDY, DR SHIN Primary Care Unavailable ZIEBER, DR ZOHRA Asher Consulting Unavailable ISABEL, DR CURTIS Consulting Unavailable LANDRY, ANUEL Admitting Unavailable LANDRY, ANUEL Attending Unavailable INDY, DR SHIN Primary Care Unavailable ZIEBER, DR ZOHRA Asher Consulting Unavailable LANDRY, ANUEL Consulting Unavailable ISABEL, DR CURTIS Admitting Unavailable ISABEL, DR CURTIS Attending Unavailable INDY, DR SHIN Primary Care Unavailable ZIEBER, DR ZOHRA Asher Consulting Unavailable ISABEL, DR CURTIS Consulting Unavailable INDY, DR SHIN Primary Care Unavailable REINECK, DR GABE Webster Admitting Unavailabl e REINECK, DR GABE Webster Attending Unavailabl e REINECK, DR GABE Webster Consulting Unavailabl e ZIEBER, DR ZOHRA Asher Consulting Unavailable MD Aleida Putnam Primary Care Provider DO Tio Elizabeth Attending Provider [phone] ALEIDA PUTNAM Primary Care Unavailable Arely Allen Attending Unavail able Arely Allen Admitting Unavail able Arely Allen Attending Unavail able Arely Allen Admitting Unavail able ALEIDA PUTNAM Primary Care Unavailable Aleida Putnam MD Primary Care Provider [phone] Aleida Putnam MD Primary Care Provider [phone] Tio Elizabeth DO Attending Provider Aleida Putnam Primary Care Unavailable Tio Elizabeth Attending Unavailable Tio Elizabeth Admitting Unavailable BJ TAVARES Attending Unavailable ARLENE JOHNSTON Attending Unavailable ARLENE JOHNSTON Referring Unavailable BJ TAVARES Attending Unavailable ALEIDA PUTNAM Attending Unavailable BJ TAVARES Attending Unavailable ARELY ALLEN Attending Unavailable CLAUDIA LUNA Attending Unavailable CLAUDIA LUNA Referring Unavailable CLAUDIA LUNA Referring Unavailable BJ TAVARES Attending Unavailable ALEIDA PUTNAM Attending Unavailable ARELY ALLEN Referring Unavailable TIO ELIZABETH Attending Unavailable TIFFANY, ARELY Duggan Attending Unavailable BJ TAVARES Attending Unavailable Allergies Allergy Classification Reported Allergen(s) Allergy Type Date of Onset Reaction(s) Facility (20 sources) Morphine; Translations: [morphine] Drug Allergy GI intolerance [facility] Repository Medications Current Medications Medication Drug Class(es) Dates Sig (Normalized) Sig (Original) ALPRAZolam 0.25 mg oral tablet (20 sources) Benzodiazepine Start: 11-30-2023 End: 11-30-2024 take 1 tablet by mouth in the morning, then take 1 tablet by mouth at bedtime ALPRAZolam (Xanax) 0.25 MG tablet Indications: Anxiety Take 1 tablet (0.25 mg) by mouth in the morning and 1 tablet (0.25 mg) before bedtime. This not due at this time. She just got a 90 day supply on 11/25. May fill when due. 180 tablet 09/01/2024 11/30/2024 Active Start: 07-21-2023 End: 10-19-2023 take 1 tablet by mouth in the morning, then take 1 tablet by mouth at bedtime ALPRAZolam (Xanax) 0.25 MG tablet Indications: Anxiety Take 1 tablet (0.25 mg) by mouth in the morning and 1 tablet (0.25 mg) before bedtime. This not due at this time. She just got a 90 day supply on 11/25. May fill when due. 180 tablet 07/21/2023 Active atorvastatin 40 mg oral tablet (20 sources) HMG-CoA Reductase Inhibitor Start: 07-22-2024 take 1 tablet by mouth in the morning atorvastatin (Lipitor) 40 MG tablet Indications: Hypertension due to endocrine disorder TAKE 1 TABLET BY MOUTH IN THE MORNING 100 tablet 3 07/22/2024 Active Start: 09-08-2023 take 1 tablet by darcy th in the morning atorvastatin (Lipitor) 40 MG tablet Indications: Hypertension due to endocrine disorder ([facility]) TAKE 1 TABLET BY MOUTH IN THE MORNING 90 tablet 3 09/08/2023 Active Calcium Carbonate-Vit D-Min (Caltrate 600+D Plus Minerals) 600-800 MG-UNIT chewable tablet (20 sources) Start: 02-22-2008 Calcium Carbonate-Vit D-Min (Caltrate 600+D Plus Minerals) 600-800 MG-UNIT chewable tablet every 12 (twelve) hours. 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 Take before meals. 360 tablet 10/24/2024 10/24/2025 Active Start: 11-09-2023 End: 10-24-2024 take 1 tablet by mouth before mealtime levothyroxine (Synthroid, Levoxyl) 200 MCG tablet Indications: Acquired hypothyroidism Take 1 tablet (200 mcg) by mouth in the morning. Take before meals. 100 tablet 4 11/09/2023 10/24/2024 Discontinued (Reorder) Start: 08-05-2022 take 1 tablet by darcy th before mealtime levothyroxine (Synthroid, Levoxyl) 200 MCG tablet Indications: Acquired hypothyroidism (CMS/HCC) Take 1 tablet (200 mcg) by mouth in the morning. Take before meals. 100 tablet 4 08/05/2022 Active traMADol hydrochloride 50 mg oral tablet (5 sources) Opioid Agonist Start: 10-13-2023 End: 10-18-2023 take 1 tablet by mouth every eight hours for pain traMADol (Ultram) 50 MG tablet Indications: Acute post-operative pain Take 1 tablet (50 mg) by mouth every 8 (eight) hours if needed for severe pain for up to 5 days 10 tablet 10/13/2023 10/18/2023 Active Completed/Discontinued Medications Medication Drug Class(es) Dates Sig (Normalized) Sig (Original) amoxicillin 500 mg oral capsule (20 sources) Penicillin-class Antibacterial Start: 09-11-2023 End: 06-07-2024 amoxicillin (Amoxil) 500 MG capsule 2,000 mg if needed 09/11/2023 06/07/2024 Discontinued (Other) calcium carbonate 1500 mg / cholecalciferol 800 unt oral tablet (1 source) Vitamin D Start: 09-11-2023 End: 11-25-2023 take 1 tablet by mouth twice daily Calcium Carb-Cholecalcife rol (Caltrate 600+D3) 600-20 MG-MCG tablet 1 tab(s), Oral, BID, # 60 tab(s), 0 Refill(s) 09/11/2023 11/25/2023 Discontinued (Duplicate order) Problems Active Problems Problem Classification Problem Date Documented Date Episodic/Chronic Acquired foot deformities (2 sources) Acquired deformity of toe of left foot; Translations: [Acquired deformities of toe(s), unspecified, left foot] 10-13-2024 Episodic Adjustment disorders (20 sources) Adjustment disorder with anxious mood; Translations: [Adjustment disorder with anxiety] Onset: 06-19-2022 06-19-2022 Chronic Anxiety disorders (20 sources) Anxiety; Translations: [Anxiety disorder, unspecified] Onset: 11-24-2022 11-24-2022 Chronic Chronic kidney disease (20 sources) Chronic kidney disease stage 3A ; Translations: [Stage 3a chronic kidney disease (HCC)] Onset: 09-13-2020 11-10-2022 Chronic Diabetes mellitus with complications (20 sources) Disorder of kidney due to diabetes mellitus; Translations: [Type 2 diabetes mellitus with diabetic nephropathy] Onset: 06-19-2022 06-19-2022 Chronic Diabetes mellitus without complication (20 sources) Type 2 diabetes mellitus without complication; Translations: [Type 2 diabetes mellitus without complications] Onset: 11-23-2014 11-10-2022 Chronic Disorders of lipid metabolism (20 sources) Pure hypercholesterolemia ; Translations: [Pure hypercholesterolemia , unspecified] Onset: 11-23-2014 11-10-2022 Chronic Essential hypertension (20 sources) Hypertensive disorder; Translations: [Essential (primary) hypertension] Onset: 11-24-2023 11-24-2023 Chronic Genitourinary symptoms and ill-defined conditions (20 sources) Incontinence; Translations: [Mixed incontinence] Onset: 09-16-2016 06-19-2022 Chronic Heart valve disorders (6 sources) Heart murmur; Translations: [Cardiac murmur, unspecified] Onset: 10-24-2024 10-24-2024 Episodic Hypertension with complications and secondary hypertension (20 sources) Hypertension secondary to endocrine disorder; Translations: [Hypertension secondary to endocrine disorders] Onset: 06-19-2022 06-19-2022 Chronic Menopausal disorders (20 sources) Other primary ovarian failure; Translations: [Decreased estrogen level] Onset: 06-04-2021 Chronic Mycoses (12 sources) Pain in toe; Translations: [Tinea unguium] 12-27-2023 Episodic Nonmalignant breast conditions (20 sources) Fibrocystic disease of breast; Translations: [Diffuse cystic mastopathy of unspecified breast] Onset: 06-19-2022 06-19-2022 Chronic Osteoarthritis (20 sources) Arthritis of left glenohumeral joint; Translations: [Primary osteoarthritis, left shoulder] Onset: 11-23-2014 06-19-2022 Chronic Other connective tissue disease (20 sources) History of total knee arthroplasty; Translations: [Presence of unspecified artificial knee joint] Onset: 06-19-2022 06-19-2022 Chronic Other connective tissue disease (20 sources) Artificial knee joint present; Translations: [Presence of unspecified artificial knee joint] Onset: 06-04-2017 11-10-2022 Chronic Other connective tissue disease (8 sources) History of reverse prosthetic total arthroplasty of right shoulder; Translations: [Presence of right artificial shoulder joint] 12-22-2023 Chronic Other connective tissue disease (2 sources) History of total hip arthroplasty; Translations: [Presence of left artificial hip joint] 09-05-2024 Chronic Other diseases of veins and lymphatics (12 sources) Vascular insufficiency; Translations: [Venous insufficiency (chronic) (peripheral)] 12-27-2023 Episodic Other nervous system disorders (20 sources) Difficulty walking; Translations: [Difficulty in walking, not elsewhere classified] Onset: 05-21-2017 11-10-2022 Chronic Other non-traumatic joint disorders (2 sources) Hip pain; Translations: [Pain in left hip] 09-05-2024 Episodic Other non-traumatic joint disorders (2 sources) Pain in right knee; Translations: [Pain in joint, lower leg] 09-15-2024 Episodic Other non-traumatic joint disorders (2 sources) Pain in left knee; Translations: [Pain in joint, lower leg] 09-15-2024 Episodic Other non-traumatic joint disorders (2 sources) Pain in right shoulder; Translations: [Pain in joint, shoulder region] 09-15-2024 Episodic Other nutritional; endocrine; and metabolic disorders (20 sources) Obese class II; Translations: [Class 2 obesity] Onset: 06-19-2022 06-19-2022 Chronic Other nutritional; endocrine; and metabolic disorders (4 sources) Obesity caused by energy imbalance; Translations: [Morbid (severe) obesity due to excess calories] Onset: 10-24-2024 10-24-2024 Chronic Other nutritional; endocrine; and metabolic disorders (4 sources) Body mass index 30+ - obesity; Translations: [Body mass index (BMI) 37.0-37.9, adult] Onset: 10-24-2024 10-24-2024 Chronic Other screening for suspected conditions (not mental disorders or infectious disease) (8 sources) Other abnormal and inconclusive findings on diagnostic imaging of breast; Translations: [Encounter for screening mammogram for malignant neoplasm of breast] Onset: 12-07-2020 Episodic Retinal detachments; defects; vascular occlusion; and retinopathy (20 sources) Bilateral degeneration of macula; Translations: [Unspecified macular degeneration] Onset: 06-19-2022 06-19-2022 Chronic Thyroid disorders (20 sources) Acquired hypothyroidism; Translations: [Hypothyroidism, unspecified] Onset: 06-19-2022 06-19-2022 Chronic Past or Other Problems Problem Classification Problem Date Documented Da te Episodic/Chronic Allergic reactions (20 sources) Eczema; Translations: [Dermatitis, unspecified] Onset: 11-24-2022 11-24-2022 Episodic Diseases of mouth; excluding dental (20 sources) Xerostomia; Translations: [Dry mouth, unspecified] Onset: 11-24-2022 11-24-2022 Episodic Nonmalignant breast conditions (20 sources) Unspecified lump in the left breast, unspecified quadrant; Translations: [Unspecified lump in the left breast, upper inner quadrant] Onset: 12-12-2020 Episodic Other aftercare (1 source) Other [place] [facility] (current) drug therapy; Translations: [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] Onset: 09-14-2020 Episodic Other bone disease and musculoskeletal deformities (20 sources) Osteopenia; Translations: [Other specified disorders of bone density and structure, unspecified site] Onset: 06-19-2022 06-19-2022 Episodic Other connective tissue disease (3 sources) Facial weakness; Translations: [FACIAL WEAKNESS] Onset: 09-12-2020 Episodic Other connective tissue disease (2 sources) Pain of toes of bilateral feet; Translations: [Pain in right toe(s)] 10-12-2023 Episodic Other nervous system disorders (1 source) Molina's palsy; 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] Onset: 09-14-2020 Episodic Other nervous system disorders (2 sources) Acute postoperative pain; Translations: [Other acute postprocedural pain] 10-13-2023 Episodic Other non-traumatic joint disorders (20 sources) Arthralgia of the pelvic region and thigh; Translations: [Pain in unspecified hip] Onset: 05-04-2015 11-10-2022 Episodic Residual codes; unclassified (1 source) Family [...] HX MALIG NEOPLASM PROSTATE] Onset: 12-14-2020 Episodic Residual codes; unclassified (20 sources) History of repair of hip joint; Translations: [Other specified postprocedural states] Onset: 06-19-2022 06-19-2022 Episodic Spondylosis; intervertebral disc disorders; other back problems (20 sources) Chronic low back pain; Translations: [Chronic low back pain] Onset: 07-19-2020 06-19-2022 Episodic Results Test Name Value Interpretation Reference Range Facility TSH W/REFLEX TO FT4on 2024 TSH W/REFLEX TO FT4 1.14 mIU/L Normal 0.40-4.50 [facility] Comment on above: Performed By: #### [id number] #### [facility] [address] [facility], [address] [place] [address] Honey Producer: Nader Quiñones MD No Panel Informationon 09-15 Radiology Study observation (narrative) Event[facility] XR Hip - left 3 Viewson 08-18 Imaging Result: AP and lateral of left hip: Acceptable position and alignment of left total hip arthroplasty. There was no evidence of loosening of the acetabular cup or femoral stem. Femoral head was well centered in the acetabular liner without evidence of asymmetric or accelerated wear. There was no gross evidence of fracture and/or dislocation. Impression: Unremarkable left total hip arthroplasty. [employer] Knee - left 1 or 2 Viewso n 09-15-2024 AP and Lateral of left knee: Surgical position and alignment of prosthetic components without evidence of loosening or wear to femora, tibial or patellar components, The alignment appears to be anatomic. No evidence of accelerated or asymmetric wear to tibial tray or patella button. No evidence of fracture or dislocation. Impression: Unremarkable left total knee arthroplasty [employer] X[employer] Knee - right 1 or 2 Views on 09-15-2024 Imaging Result: AP and Lateral of right knee: Surgical position and alignment of prosthetic components without evidence of loosening or wear to femora, tibial or patellar components, The alignment appears to be anatomic. No evidence of accelerated or asymmetric wear to tibial tray or patella button. No evidence of fracture or dislocation. Impression: Unremarkable right total knee arthroplasty [employer] X[facility] Shoulder - right 2 Viewso n 09-15-2024 Imaging Result: AP and Lateral of rig shoulder Surgical position and alignment of prosthetic components without evidence of loosening or wear to glenosphere or socket The alignment appears to be grossly anatomic. No evidence of accelerated or asymmetric wear or loosening or notching of scapular neck No evidence of fracture or dislocation. Impression: Unremarkable right [facility] Study observation (narrative) [facility] ALL CBC WITH AUTO DIFFon BASOPHILS ABSOLUTE AUTO 0.1 [facility] Basophils/100 WBC (Bld) 1.3 % 0.2 - 2.0 % [facility] Eosinophils/100 WBC (Bld) 6.3 % 0.9 - 7.0 % [facility] Erythrocyte distribution width (RBC) [Ratio] 13.2 % 11.0 - 15.0 % [facility] Hematocrit (Bld) [Volume fraction] 41.6 % 36.0 - 48.0 % [facility] Hemoglobin (Bld) [Mass/Vol] 13.7 g/dL 12.0 - 16.0 g/dL [facility] IMMATURE GRANULOCYTES ABS AUTO 0.02 [facility] Immature granulocytes/100 WBC (Bld) 0.4 % 0.0 - 0.5 % [facility] Interpretation and review of laboratory results Abnormal [facility] LYMPHOCYTES ABSOLUTE AUTO 1.1 Low [facility] Lymphocytes/100 WBC (Bld) 22.3 % 20.5 - 60.0 % [facility] MCH (RBC) [Entitic mass] 29.8 pg 26.7 - 34.0 pg [facility] MCHC (RBC) [Mass/Vol] 32.9 g/dL 29.9 - 35.2 g/dL [facility] MCV (RBC) [Entitic vol] 90.6 fL 81.0 - 99.0 fL [facility] MONOCYTES ABSOLUTE AUTO 0.4 [facility] Monocytes/100 WBC (Bld) 8.4 % 1.7 - 12.0 % [facility] NEUTROPHILS ABSOLUTE AUTO 2.9 [facility] Neutrophils/100 WBC (Bld) 61.3 % 43.0 - 75.0 % [facility] Platelet mean volume (Bld) [Entitic vol] 10.8 fL 9.5 - 13.5 fL [facility] TBH EO # 0.3 [facility] TBH PLT 244 [facility] RBC 4.59 [facility] WBC 4.8 [facility] MM screening mammo BI w/CADo n 06-13-2024 MM screening mammo BI w/CAD [facility] [address] [place] [address] Mammography Report Signed Patient: Emile Childers MR#: [id number] : 1945 Acct:[id number] Age/Sex: 79 / F Adm Date: 06/13/24 Loc: [place] Room: Type: [facility] Attending Dr: Tio Elizabeth DO Ordering Provider: Tio Elizabeth DO Date of Service: 06/13/24 Procedure(s): MM screening mammo BI w/CAD Accession Number(s): ([id number]) MM/MM screening mammo BI w/CAD: Z12.31 Copies to: MD Tio Hernández DO CLINICAL DATA: Screening for malignancy. BILATERAL SCREENING MAMMOGRAMS - FULL FIELD DIGITAL WITH TOMOSYNTHESIS AND CAD Tomosynthesis craniocaudal and mediolateral oblique views of both breasts were obtained using low- dose digital technique. Comparison is made to prior studies from July 23, 2021 (left) through April 17, 2023. This examination was reviewed with the aid of CAD. There are scattered fibroglandular densities. There is a biopsy marking clip at the central posterior left breast. Benign and vascular calcifications are visualized. There are no developing masses, typically malignant calcifications or architectural distortion. There has been no significant interval change. MM/MM screening mammo BI w/CAD IMPRESSION: NO MAMMOGRAPHIC EVIDENCE OF MALIGNANCY. ROUTINE FOLLOW-UP IS RECOMMENDED IN ONE YEAR. RESULT CODE: 2 Benign Findings(s) DENSITY CODE: 2 (approximately 25-50% glandular) FOLLOW UP: 1YR The false-negative rate of mammography is approximately 10-percent. Management of a palpable abnormality must be based on clinical grounds. Patient was entered into a reminder system with a target due date for the next mammogram. Impression dictated by: Janelle Dooley M.D. 06/13/2024 3:34 PM Dictation Location: [facility] Dictated By: Janelle Dooley MD 06/13/24 153 Signed By: 06/13/24 1534 [facility] Mammography reportOrdered By : Janelle Dooley on 06-13-2024 Diagnostic imaging study [facility] [address] [place] [address] Mammography Report Signed Patient: Emile Childers MR#: [id number] : 1945 Acct:[id number] Age/Sex: 79 / F Adm Date: 5 Loc: [place] Room: Type: [facility] Attending Dr: Tio Elizabeth DO Ordering Provider: Tio Elizabeth DO Date of Service: 06/13/24 Procedure(s): MM screening mammo BI w/CAD Accession Number(s): ([id number]) MM/MM screening mammo BI w/CAD: Z12.31 Copies to: MD Tio Hernández DO~ CLINICAL DATA: Screening for malignancy. BILATERAL SCREENING MAMMOGRAMS - FULL FIELD DIGITAL WITH TOMOSYNTHESIS AND CAD Tomosynthesis craniocaudal and mediolateral oblique views of both breasts were obtained using low-dose digital technique. Comparison is made to prior studies from July 23, 2021 (left) through April 17, 2023. This examination was reviewed with the aid of CAD. There are scattered fibroglandular densities. There is a biopsy marking clip at the central posterior left breast. Benign and vascular calcifications are visualized. There are no developing masses, typically malignant calcifications or architectural distortion. There has been no significant interval change. MM/MM screening mammo BI w/CAD IMPRESSION: NO MAMMOGRAPHIC EVIDENCE OF MALIGNANCY. ROUTINE FOLLOW-UP IS RECOMMENDED IN ONE YEAR. RESULT CODE: 2 Benign Findings(s) DENSITY CODE: 2 (approximately 25-50% glandular) FOLLOW UP: 1YR The false-negative rate of mammography is approximately 10-percent. Management of a palpable abnormality must be based on clinical grounds. Patient was entered into a reminder system with a target due date for the next mammogram. Impression dictated by: Janelle Dooley M.D. 06/13/2024 3:34 PM Dictation Location: [facility] Dictated By: Janelle Dooley MD 06/13/241529 Signed By: 06/13/24 1534 [facility] Work Phone: Laboratory - Hematology and Cell countson 06-07-2024 HbA1c (Bld) [Mass fraction] 5.8 % Event[facility] No Panel Informationon 06-07 Interpretation and review of laboratory results Normal [facility] [employer] XR Shoulder - right 2 Viewso n 03-16-2024 Imaging Result Multiple views of right shoulder showed reverse arthroplasty to be in appropriate position and alignment. There was no gross evidence of loosening to the glenoid sphere or humeral component. Overall anatomic alignment appeared to be preserved. Impression: No acute bony process reverse arthroplasty, right shoulder [facility] XR Shoulder - right 2 ViewsO rdered By: Jr. Melton on 03-16-2024 [employer] Work Phone: XR Shoulder - right 2 Viewso n 03-14-2024 Radiology Study observation (narrative) [facility] XR Shoulder - right 2 Viewso n 11-10-2023 Imaging Result: November 10, 2023 x-rays AP and lateral of the right shoulder demonstrate reverse total shoulder replacement in good position alignment without signs of loosening or failure. Impression: Stable appearance of right reverse shoulder replacement Dylan Allen D.O. [facility] Study observation (narrative) [facility] Consent Formson 10-08-2023 Consent Forms [id number]#1. [facility]-07-2023 Anesthesia Note [id number]#1. [facility] Coding Summaryon 10-07-2023 Coding Summary HTMLBase 64 UhtchdkgNIp7qFi+PGhlY WQ+US5GCFOlB03qgNGlsZ 3tL6CDTVsCDieaCFZRETj VHfOxbmJaOT3ecXRaKENh IC8+RI9rDABsIjhbeIWll 6R8lWE3F76emq0uKJjvnF I6LTPoHzNeukzcb7jwaTh 6IDcuNmluOyBt KKNaaF47QNI6qH25Un87f XZpsLJim6cusSp3FkBkVM SzCMW0hPnkRFgns7NhQVS bC02wbZWji1N4 NPHbrVawkNFjWoSonFN2h I8kXXupegdzh2noljjxZq y5xl06wEDxb7T0uER1B1Q pwyR7XJGacMEj DmmaoJFDqG8vuwmca3wtq qybLaDaLHWhAHj6KPp9NP QniAjtJuJjLZ22NAP0UID hriLeJ9HyZIYs dYltBaE0s6K3Zs7NH1MRW iffA7FSLFSEQSlaoBQ+PC 92lo30L2JfOfphQbf6PNO dXWD0pHK6kV1l ZEVeUEywp8N6qUS3Z4Bcs xByln7qe2fyFFYzATirQ5 6dxGOcv2B6SWNhzPX9SBO fwOtoXnAcxE19 Oyc+NAQrcDpvo7ZaZolor 4ipt3gvaKa0WgydNWFemw GkdDcbDZM3b9WkSg0bCXL gnFX4wFP2iN7u TdFtMhV7YPchB417EuWub XJsBnmoB45qM9HstSC+PH DwSoz9NBYmoFofMN2jK7E hZGRpbmctbGVm tMfxJC6lRWKtnsgxJREsu D8fUAQiE5t5VwEfGyG7SX xaM9EmSYNrfuvyWy89pA1 uMdWxRfO9ZAsj S1StjoC4UJFrgCXoZVobN WD6S35ii8G3ZNHeNZTpRL H5rXL2aD2moJvjmroclOP mdDsgdmVydGlj QDfcZZsuH075GEVqbJzkF kNvZGluZyBEYXRlOiAgMD gvMjEvMjAyNDwvdGQ+PHR fUEE7tDtyRTQq jJNvXZfhHe2cnFcqfDjsQ N3zMMRerlaaUPOsqN7bOS SmmJAerVjjLW6wCAAsdni iv514VaMyUZV3 MOInmRXwZ6OzkP7eHxMaO UOfHWGoI1MteGXjFKepA3 39EHcmCnO6UFHuvhTnC6F sLWFsaWduOiB0 m6R0Rl7Ay6EnbolcB3Xbv FTrPfYqDtefYJh1K0KdTu wvdHI+NC20DDGoVF80YWw 1KQE2aHkiEEgw NSXfX9HiuK0yLcNdCQSyF GRkOyc+PHRhYmxlIHdpZH RoPScxMDAlJyBzdHlsZT0 uVt1aOGJgDGYs uKoyvNErDfAdj1fdWUKlH IbhWU2vqGuoK3PqdBD3OF Uxw0m6To27R94iF1DfcDW +JHBbwXL0ySO4 dF8qLfHsYaX6AQxbB483G fWwqFYlHzslx9kgj9mazG b2EbN4ESLfhtTkfRqzJFT 0u1QjFm25F25d IHdpZHRoPSIxNSUiIHZhb Tpdnd7qkE8fMo6+PGNvbC Z4aEY0wP3oWkXuXuR9OTh iF491LaWohGZz Brfpw0fnt7czgMy0GaJhT JUkhoVvdYwyTGW9e9BhTm 84Y0SoqDhzo5JhSep1gs8 2aDFkh6U0xVB8 L9AfFGFzrsautABfoXjmI K3hDLYwhpcoBQEbuB8gWG DsN5m7AqQfFoP8TIxxN9I yrlZ4YDNjyKQf VVMdwJDHnS7gbumgk4urz fpgVdVoRNWmEMa1XLt3BL ReyDhqOyMaHXU9UxV1KNN 8jZKkfB6vlSdj bmrtgS0iUys+SGT5xGYqi LEXXB2rWyfrvER+PHRkIH Y6sSaoSGtfUDAobR8tAUS tH5h5BxGfArK2 MTitX6ObgeU8NSEcvJZtX UIqzKKZvS6umsufb1lhqd bzSxVaPFHjPPy7QPy7FYA saWduOiBsZWZ0 GdC8KMA4lMFceY2kjTmlp vtgaL6uQxv+QmlydGggRG E4MFq8C8PcSbs9GDMztGo fEQ9nlMGlOMze Ff5tuTxmhTjpRH3xHOObc sjww745OvOup4gpBCFxjZ IpFCswMOC9Y90ck1M8BGE nESSpDMQ2hPF9 hI8evQgxchirjQPczJibn uFajFnwBGttZMedV337BA YctOymBeOoQHg8F6XhByj 8YXXvvDkyNV9f uCXhCMmzUb2mcNitsZavQ D2vAMDclwcin983RpSel5 jyWNTciWHlUKqzOGZ6N80 vo0W7XRQwWWDx UIK4nNT7kY0lwKiuprdgn GVmdDsgdmVydGljYWwtYW knS311NJXgwKovKjZqyHc 5D7DnZkb6WFJv yJmjYT7jmRWiUXvxMy8ni HahyPjrPB4eIJMbocstp9 86BzIsx5wgQAPrgQImSYf oYRB9O64ym5C8 BLAxQOGwPNK2zYQ4dE5ls GlnbjogbGVmdDsgdmVydG ecXPnmXEduK603NGQrwWc nPlBhdGllbnQg ICbyMKr0S4KkQyvliEB+P E69QHVyED07bCSjpSNbo5 blyBa9CsSsBYXlZKV1hAl lFRivl0OjENOz Q76meHXsx3W0OHJccIoez RErBuLzlZY5hM5xLYheuv ehm4korofdJhzsa9ttdv3 4bT93T46iEXcb ZHRoPSIzMCUiIHZhbGlnb w1keH5xPo4+XNYsvCC5rJ T2bE5jPVTpBsA1NLiwD97 9InRvcCIvPjxj y8jpv8qegXy6YkG7RBQiv yExfKqqDIV3v0KhPv67L4 9sIHdpZHRoPSIyMCUiIHZ stGgfts7moZ3t Ii8+QZFfiKZ5mCE0uG1zI oQcNjC3NUooI576JqQysA FnEhacC86iO1PclOT+PHR rQcp7KGGaeXjt XW1vsDFtVRkdGa9kHRW6V rFdWqToLFmpX0GkGBHdor ucsjzxnDQ8MCEyMUCxdC6 4Fk2ibXgsNNCv vXPQdB8ccklgv6vdcmauD tDfDSHoYRt9XOk6OEGhkG ttAuNhZOG8IeX3XJB4xWP ycO4wwXntvtts tT3pU5AaEYHyoaokFl25b B0wHxYeCtS5ONebFnl+Qk IZU3TLYTFLJH0ZNNxWGJE 1T4KwNvj8HFEk uWinYA1onAZjPTfoNl0xi XsrfFhqLW0eRWHwkgfoUV DrrN0gJNNshRWkjFsdML7 lOVDvlhipn910 PsRkJUA1UISwxJHmT4Cyy K1eHkGpQPKfCCVgM1KftS TdEGroS923MOwrSqQ1JFU veaWkL9FiAQNe oGpxEkV6q3F9Dw5uQV9jG x9lOPL6PK26GB89nWBso4 Y4pJX8X5TkZPCvsapmlln cnLL7JZNyDRIr pV44oVSoXUzwHo1tc5P0t 712MAViCSIuaF46Ka4ehX iqZREspBMUzT2ubxoce2t vcjogIzAwMDAw TVf9CAq8MYPqvOnlRrFmV BV6KeL4TEF7cDNbjB7beS ywigzgoZ7yNsi+NzcgWWV xzzW7F6SnNhj8 BFInhUqoLJ3qlWXgOOnuT x0dvEzyhHkbQK3aNUKtpg eiHALnbD2pOMWozVSfdRg vBW5pHCSdzgjq o835DlCxKCH6UTShwKCsX 1AraU7dUnCiNQBvFEYzE2 AlnBFvSCacC394WWsuPyF 7DYZxuiJcD6Gb VGCclWmiZiU1u9C1Zg1IP O4FROO9R1RhNru8LHBbyW rzKQ8jbNIxDXftOr6dvAw aaNogRN0kEIWu mzhfWPIwoO3lHIAhnKUix IrqRR7yESKmrqawi496Ul JcMGC8OFZbcBWpV0EknK2 yOiAjMDAwMDAw G9QpiNGuUPatD216NRnbV iV4JOMjopPcZ6GsQWRlpD liIyA1a7A1Qk8OUmXfprS hdGlvbjwvdGQ+ TI19mx65J1TfLgunDec6U QZxWMJ2bVG1pH9eVVHbAB kpo2Q3aBC2R1VezlZozp1 ir8foEJRhQHrp H62osOWsv0F1HYNbzYZ3Y AVvtUsyBxDtuG63Knh+PG OaaHebk3OxFlewb4ypd4n gpHk5XsLuOUXv xsYplBoxPNN0b2GaVz55Q 29sIHdpZHRoPSIzMCUiIH EjkQleib7gqC6oHe8+PGN odAG9lKH0eL8w KpEhOpM8DIowB130GwZyf WRsGijxi2jhk0irfFb1Dj JiMPDoblMpkLudYJY8o5Z aNu85Z3OcyEid w0FaZmn2zq44jVBwv8W1s UN8C8NeXJAtektleFGevY hqIK4nGSOduvcoPVLdjU7 zBUMdG0a3AfRm GoY4CXvfQ1WpxxO5KPIhc QOwVGAdaLTRtN9xyrfrc7 jpbomlBcZsBAEhQTu1UAr 0LWFsaWduOiBs KVF2BzZ8KTN4nGAjuB4pt DiskpechD4iBfg+UGh5c2 vbkCQlVY3zgLJ7IT19FB2 5wFMti5B6wGG9 M5VgAZYsypbhxblwqYF9J GUjHCNsfB34Ct8rxJemUs 6xHJZkOLC8IWXjwOMaM5J utC7uGsWqIBHe SXJcC6BnwLYqLMafR848W SkbXuP3WNAgjrSeV1LaID PazZscHsU1z9U4Pa5UVM6 6SB79CS29nGMz v8I0qNR3L6YvMLZgfsbcn gkrlMQ2KQDoRGLrvY32Jb 5miAorFk0mUPDyWEV1WLY uwUDaI7WfwV7p FyNpXLDqDAMbZ9YyrDXmI CsuN010TZgkIyF2IENzxf CuY6BbNSHamXgtDyX7k5Q 3Mw1KQx04NC58 YR44sKXre8W3yMU1Z2ZmZ SNeobljccukkKR2SADaYG OgsD18El9ezPxvHz9uKGN mAPZ6VZRgyLJj V8VqlK8xViWtFHXkKRZzF 0ApfHHzVVppB944TPzoQk Y1GGKrhiXhF1ExLFYucUp nRkQ3a7M7Cc1V RJlabmt6P1XeIsujsQU+P H30FFXlLB54mOUmhHPjp8 ndoCb8TsYdAVWeGBU6rMp nGAden0JaDIAr Y29 (more content not included)... [facility] Consent Formson 10-07-2023 Consent Forms [id number]#1. [facility] on 10-07-2023 Consultation/Speci alist Note [id number]#1. [facility] Dis[facility] Instructionson Discharge Instructions [id number]#1. [facility] Provider Orderson 10-07-2023 Provider Orders [id number]. [facility] Telemetry Stripson Telemetry Strips [id number]. [facility] Consultation/Specialist Note on 10-06-2023 Consultation/Speci alist Note Patient: EMILE CHILDERS Age: 78 years Sex: FEMALE : 1945 Associated Diagnoses: None Author: ARLENE JOHNSTON Basic Information 1 day s/p RT reverse TSA (DOS 10/06/23) Subjective She is doing well, she is sitting up in bed, painis currently 02/25, she is looking forward to going home today Review of Systems denies chest pain, shortness of breath and nausea Health Status Allergies: Allergic Reactions (All) Moderate Morphine- Vomiting. Objective dressing to the right shoulder is clean dry and intact, able to actively flex and extend the fingers, wrist and elbow, nv intact RT UE, cryo cuff and arm sling on Impression and Plan d/c home once pain well controlled, f/U in office within 10-14 days s/p surgery [Electronically Signed on: 10/06/2023 08:17 EDT] ARLENE JOHNSTON [Verified on: 10/06/2023 08:17 EDT] ARLENE JOHNSTON [facility] Inpatient Patient Summaryon 10-06-2023 Inpatient Patient Summary [address] [id number] Patient Discharge Instructions Name: EMILE CHILDERS : 1945 Patient [address]: [address] [place] [address] Primary Care Provider: Name: ALEIDA PUTNAM MD After you are discharged if you find you have any questions, please, call [phone] ext [phone] to speak to a nurse. 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 If you or anyone you know is experiencing suicidal thoughts, mental health, alcohol and/or drug addiction problems; contact the [facility] 08/09 Crisis Hotline -text 4hope to 741741. If you received any narcotics, sedation, or any other medication that causes drowsiness for the next 24 hours, unless otherwise directed: ? Do not drive a car. ? Do not operate machinery such as power tools, lawn mowers, drills, sewing machines, or stoves ? Avoid alcoholic beverages and drugs for allergies, nerves, or sleep ? Do not make important personal or business decisions or sign any legal documents [facility] would like to thank you for allowing us to assist you with your healthcare needs. The following includes patient education materials and information regarding your injury/illness. EMILE CHILDERS has been given the following list of follow-up instructions, prescriptions, and patient education materials: Follow-up Instructions With: Address: When: Arely Allen [address] [place] [address], [address] [place] [address] Business (1) 10/13/2023 11:00 AM Medications During the course of your visit, your medication list was updated with the most current information. The details of those changes are reflected below: Medications That Were Updated - Follow Below Instructions Other Medications Updated: amoxicillin (amoxicillin 500 mg oral capsule) 4 cap(s) Oral (given by mouth) As Directed. 1 HOUR PRIOR TO DENTAL TREATMENT. Medications to Continue That Have Not Changed Other Medications ALPRAZolam (ALPRAZolam 0.25 mg oral tablet) 1 tab(s) Oral (given by mouth) 2 times per day. atorvastatin (atorvastatin 40 mg oral tablet) 1 tab(s) Oral (given by mouth) every day. calcium-vitamin D (Caltrate 600 + D oral tablet) 1 tab(s) Oral (given by mouth) 2 times per day. chondroitin-glucosami ne (Abdon Move Free 500 mg-400 mg oral tablet) 1 tab(s) Oral (given by mouth) every day. esomeprazole (NexIUM 24HR 20 mg oral delayed release capsule) 1 tab(s) Oral (given by mouth) every day. ferrous sulfate (ferrous sulfate 325 mg (65 mg elemental iron) oral delayed release tablet) 1 tab(s) Oral (given by mouth) every day. irbesartan (irbesartan 300 mg oral tablet) 1 tab(s) Oral (given by mouth) every day. levothyroxine (levothyroxine 200 mcg (0.2 mg) oral tablet) 1 tab(s) Oral (given by mouth). takes , thu, , sat, and sun takes it 5 times a week. multivitamin with minerals (Centrum Silver oral tablet) 1 tab(s) Oral (given by mouth) every day. multivitamin with minerals (PreserVision AREDS 2 oral capsule) 1 cap(s) Oral (given by mouth) 2 times per day. ubiquinone (CoQ10 100 mg oral capsule) 2 tab(s) Oral (given by mouth) every day. It is important to always keep an active list of medications available so that you can share with other providers and manage your medications appropriately. As an additional courtesy, we are also providing you with your final active medications list that you can keep with you. ALPRAZolam (ALPRAZolam 0.25 mg oral tablet) 1 tab(s) Oral (given by mouth) 2 times per day. amoxicillin (amoxicillin 500 mg oral capsule) 4 cap(s) Oral (given by mouth) As Directed. 1 HOUR PRIOR TO DENTAL TREATMENT. atorvastatin (atorvastatin 40 mg oral tablet) 1 tab(s) Oral (given by mouth) every day. calcium-vitamin D (Caltrate 600 + D oral tablet) 1 tab(s) Oral (given by mouth) 2 times per day. chondroitin-glucosami ne (Abdon Move Free 500 mg-400 mg oral tablet) 1 tab(s) Oral (given by mouth) every day. esomeprazole (NexIUM 24HR 20 mg oral delayed release capsule) 1 tab(s) Oral (given by mouth) every day. ferrous sulfate (ferrous sulfate 325 mg (65 mg elemental iron) oral delayed release tablet) 1 tab(s) Oral (given by mouth) every day. irbesartan (irbesartan 300 mg oral tablet) 1 tab(s) Oral (given by mouth) every day. levothyroxine (levothyroxine 200 mcg (0.2 mg) oral tablet) 1 tab(s) Oral (given by mouth). takes , thu, , sat, and sun takes it 5 times a week. multivitamin with minerals (Centrum Silver oral tablet) 1 tab(s) Oral (given by mouth) every day. multivitami (more content not included)... Normal [facility] MAGR Postoperative Recordon 10-06-2023 MAGR Postoperative Record MAGR Phase II Record Summary Primary Physician: Arely Allen DO Finalized Date/Time: 10/06/23 07:54:40 Pt. Name: EMILE CHILDERS/Sex: 1945 FEMALE Med Rec #: [id number] Physician: Arely Allen DO Financial #: [id number] Pt. Type: O Room/Bed: 221/1 Admit/Disch: 10/05/23 06:26:06 - Institution: Phase II Case Times MAGR Pre-Care Text: Patient is free from s/s of injury. Patient remains free from compromised physical state related to surgery or anesthesia. Patient comfort maintained. Patient/family verbalize understanding of discharge instructions. Entry 1 In PACU II 10/05/23 10:56:00 Discharge from PACU 10/05/23 12:26:00 II Last Modified By: Julia Nance RN 10/06/23 07:54:36 Post-Care Text: The patient remains free from s/s of injury. Patient's vital signs stable, circulation maintained, return to preop mental and physical status, opsite/dressing intact, minimal or absent nausea and vomiting, tolerates po intake. Patient verbalizes adequate pain control. Patient/family express understanding of discharge instructions. Finalized By: Julia Nance RN Document Signatures Signed By: Julia Nance RN 10/06/23 07:54 [facility] ORELLANA Formon 10-06-2023 ORELLANA Form [id number] .[id number] Pharmacy Noteon 10-06-2023 Pharmacy Note I have personally reviewed the patient's medication list upon discharge including, prescription medications, OTC products, vitamins and supplements. Below are the following medications the patient is discharged on. Medications That Were Updated - Follow Below Instructions Other Medications Updated: amoxicillin (amoxicillin 500 mg oral capsule) 4 cap(s) Oral (given by mouth) As Directed. 1 HOUR PRIOR TO DENTAL TREATMENT. Medications to Continue That Have Not Changed Other Medications ALPRAZolam (ALPRAZolam 0.25 mg oral tablet) 1 tab(s) Oral (given by mouth) 2 times per day. atorvastatin (atorvastatin 40 mg oral tablet) 1 tab(s) Oral (given by mouth) every day. calcium-vitamin D (Caltrate 600 + D oral tablet) 1 tab(s) Oral (given by mouth) 2 times per day. chondroitin-glucosami ne (Abdon Move Free 500 mg-400 mg oral tablet) 1 tab(s) Oral (given by mouth) every day. esomeprazole (NexIUM 24HR 20 mg oral delayed release capsule) 1 tab(s) Oral (given by mouth) every day. ferrous sulfate (ferrous sulfate 325 mg (65 mg elemental iron) oral delayed release tablet) 1 tab(s) Oral (given by mouth) every day. irbesartan (irbesartan 300 mg oral tablet) 1 tab(s) Oral (given by mouth) every day. levothyroxine (levothyroxine 200 mcg (0.2 mg) oral tablet) 1 tab(s) Oral (given by mouth). takes tues, wed, th, sat, and sun takes it 5 times a week. multivitamin with minerals (Centrum Silver oral tablet) 1 tab(s) Oral (given by mouth) every day. multivitamin with minerals (PreserVision AREDS 2 oral capsule) 1 cap(s) Oral (given by mouth) 2 times per day. ubiquinone (CoQ10 100 mg oral capsule) 2 tab(s) Oral (given by mouth) every day. Discharge Med Rec Notes: Reviewed admission medication list against external fill history and available ANALYSIS ANALYST medication history to ensure accuracy. Reviewed regimen upon discharge which is appropriate and correct. [Electronically Signed on: 10/06/2023 11:00 EDT] Claudia Smart PharmD [Verified on: 10/06/2023 11:00 EDT] Claudia Smart PharmD [facility] Progress Note - Nurseon 09-17 Progress Note - Nurse Pt discharged to home with is personal vehicle [Electronically Signed on: 10/06/2023 12:07 EDT] Kaley Cohn RN [Verified on: 10/06/2023 12:07 EDT] Kaley Cohn RN [facility] Progress Note - Nurse Patient in bed at this time. No com-plaints of pain at this time. Will continue to monitor. [Electronically Signed on: 10/06/2023 09:14 EDT] Kaley Cohn RN [Verified on: 10/06/2023 09:14 EDT] Kaley Cohn RN [facility] Anesthesia Noteon 10-05-2023 Anesthesia Note Patient: EMILE CHILDERS Age: 78 years Sex: FEMALE : 1945 Associated Diagnoses: None Author: Jim Ortiz MD Postoperative Information Post Operative Note: Operative Day. Anesthetic utilized: General. Health Status Allergies: Allergic Reactions (All) Moderate Morphine- Vomiting. Problem list: All Problems HTN (hypertension) / SNOMED CT 5026530511 / Confirmed Hypothyroidism / SNOMED CT 42397772 / Confirmed Physical Examination Vital Signs (last 24 hrs) Last Charted Temp Temporal L 36.2 DegC (OCT 04 06:30) Heart Rate Monitored 79 bpm (OCT 04 09:40) Resp Rate 24 br/min (OCT 04:40) SBP 154 mmHg (OCT 04:36) DBP 85 mmHg (OCT 04:36) Review / Management Condition: Stable. Assessment Anesthetic outcome No anesthetic complications noted. Adequate pain relief. awake, VSS, no pain, adequate hydration. No Complaint of nausea and vomiting. Plan Transfer/ Discharge: Patient can be discharged from PACU when criteria met. Condition good. [Electronically Signed on: 10/05/2023 10:09 EDT] Jim Ortiz MD [Verified on: 10/05/2023 10:09 EDT] Jim Ortiz MD [facility] Anesthesia Note Patient: EMILE CHILDERS Age: 78 years Sex: FEMALE : 1945 Associated Diagnoses: None Author: Jim Ortiz MD Preoperative Information Anesthesia history: Patient history: No difficult intubation, No malignant hyperthermia. Family history: No malignant hyperthermia. Review of Systems Constitutional: Negative. Respiratory: Negative, No shortness of breath. Cardiovascular: No chest pain. Gastrointestinal: GERD well controlled. Neurologic: Alert and oriented X4. Health Status Allergies: Allergic Reactions (All) Moderate Morphine- Vomiting. Current medications: Home Medications (12) Active ALPRAZolam 0.25 mg oral tablet 0.25 mg = 1 tab(s), Oral, BID amoxicillin 500 mg oral capsule atorvastatin 40 mg oral tablet 40 mg = 1 tab(s), Oral, Daily Caltrate 600 + D oral tablet 1 tab(s), Oral, BID Centrum Silver oral tablet 1 tab(s), Oral, Daily CoQ10 100 mg oral capsule 2 tab(s), Oral, Daily ferrous sulfate 325 mg (65 mg elemental iron) oral delayed release tablet 325 mg = 1 tab(s), Oral, Daily irbesartan 300 mg oral tablet 300 mg = 1 tab(s), Oral, Daily levothyroxine 200 mcg (0.2 mg) oral tablet 200 mcg = 1 tab(s), Oral NexIUM 24HR 20 mg oral delayed release capsule 1 tab(s), Oral, Daily PreserVision AREDS 2 oral capsule 1 cap(s), Oral, BID Abdon Move Free 500 mg-400 mg oral tablet 1 tab(s), Oral, Daily Problem list: All Problems HTN (hypertension) / SNOMED CT 5896278190 / Confirmed Hypothyroidism / SNOMED CT 88980893 / Confirmed Histories Family History: [place] - Breast cancer Daughter [place] - Lung cancer Son Procedure history: Knee arthroplasty (763901516) in 2018 at 72 Years. Hip arthroplasty (336491008) in 2017 at 71 Years. Knee arthroplasty (525290154) in 2011 at 66 Years. Social History Electronic Cigarette/Vaping Assessment Electronic Cigarette Use: Never. Alcohol Assessment Use: Past. Tobacco Assessment Never tobacco user Tobacco Use:. Substance Abuse Assessment Substance use: Never. . Social & Psychosocial Habits Alcohol 09/11/2023 Alcohol Use: Past Substance Use 09/11/2023 Substance use: Never Tobacco 09/11/2023 Smoking tobacco use: Never tobacco user Electronic Cigarette/Vaping 09/11/2023 Electronic Cigarette Use: Never . Physical Examination Vital Signs (last 24 hrs) Last Charted Temp Temporal L 36.2 DegC (OCT 04 06:30) Heart Rate Peripheral 76 bpm (OCT 04:30) Resp Rate 16 br/min (OCT 04:30) SBP H 142 mmHg (OCT 04:30) DBP 68 mmHg (OCT 04:30) Airway: Mallampati classification: III (soft palate, base of uvula visible). Temporomandibular joint mobility: Good. Mouth: Teeth ( WNL ), small opening. Neck: Supple, Full range of motion. Respiratory: Lungs are clear to auscultation, Respirations are non-labored, Breath sounds are equal. Cardiovascular: Normal rate, Regular rhythm, No murmur. Neurologic: Alert, Oriented. Review / Management Laboratory Results Plan [place] [employer] Anesthesiologists (ASA) physical status classification: Class II. Anesthetic Preoperative Plan Anesthesia: General. , Regional (Interscalene Block, for post op pain control). Anesthetic plan, risks, benefits, and alternatives discussed with the patient and/or family. Patient verbalized understanding. Informed consent was given. Consent was signed by the patient. [Electronically Signed on: 10/05/2023 07:19 EDT] Jim Ortiz MD [Electronically Signed on: 10/05/2023 08:36 EDT] Jim Ortiz MD [Verified on: 10/05/2023 07:19 EDT] Jim Ortiz MD [facility] MAGR Intraoperative Recordon 10-05-2023 MAGR Intraoperative Record MAGR Intra-Op Record Summary Primary Physician: Jim Ortiz MD Finalized Date/Time: 10/05/23 14:05:38 Pt. Name: EMILE CHILDERS Urban Griffith./Sex: 1945 FEMALE Med Rec #: [id number] Physician: Arely Allen DO Financial #: [id number] Pt. Type: D Room/Bed: [facility] Admit/Disch: 10/05/23 06:26:06 - Institution: Case Times MAGR Entry 1 Patient In Room Time 10/05/23 07:37:00 Out Room Time 10/05/23 07:50:00 Anesthesia Start Time 10/05/23 07:40:00 Stop Time 10/05/23 07:50:00 Surgery Start Time 10/05/23 07:45:00 Stop Time 10/05/23 07:47:00 Last Modified By: Talita Gerrad RN 10/05/23 13:49:11 Case Attendance MAGR Entry 1 Entry 2 Entry 3 Case Attendee Jim Ortiz MD, Erika RN Draper, Lora RN Role Performed Surgeon - Primary Distributing Clerk Distributing Clerk Time In 10/05/23 07:37:00 10/05/23 07:37:00 10/05/23 07:37:00 Time Out 10/05/23 07:50:00 10/05/23 07:50:00 10/05/23 07:50:00 Procedure Interscalene Interscalene Interscalene Block(Right) Block(Right) Block(Right) Last Modified By: Talita Gerard RN 10/05/23 Talita Gerard RN 10/05/23 Talita Gerard RN 10/05/23 13:49:21 13:49:21 13:49:21 Surgical Procedures MAGR Pre-Care Text: A.20 Verifies operative procedure, surgical site, and laterality Im.150 Develops individualized plan of care Entry 1 Procedure Interscalene Block Primary Procedure Yes Primary Surgeon Jim Ortiz MD Modifiers Right Surgeon Comment SCALENE BLOCK PRIOR TO Start 10/05/23 07:45:00 RIGHT REVERSE TOTAL SHOULDER Stop 10/05/23 07:47:00 Anesthesia Type Regional Block Surgical Service Anesthesia Wound Class Clean Technique Details Closure Technique N/A Entire procedure No was performed via laparoscope or robotic assistance Last Modified By: Talita Gerard RN 10/05/23 13:50:25 Post-Care Text: O.730 The patient's care is consistent with the individualized perioperative plan of care General Case Data MAGR Pre-Care Text: A.350.1 Classifies surgical wound Entry 1 Case Information OR MAGR Proc Room Case Level None Wound Class Clean Specialty Anesthesia ASA Class 2 Diagnosis Preop Diagnosis SCALENE BLOCK PRIOR TO Postop Same As Preop Yes RIGHT REVERSE TOTAL SHOULDER Postop Diagnosis SCALENE BLOCK PRIOR TO RIGHT REVERSE TOTAL SHOULDER Blunt or No Is the procedure No penetrating injury considered occured prior to Emergent/Urgent? the start of the procedure: Last Modified By: Talita Gerard RN 10/05/23 13:51:18 Post-Care Text: O.760 Patient receives consistent and comparable care regardless of the setting Time Out MAGR Entry 1 Procedure(s) Interscalene Block(Right) Time Out Checklist Verifications Team Introductions Yes Confirmed Identity, Yes Completed Procedure, Incision Site, and Consent(s) Presence of Yes Site Verification, Yes Necessary Site Marking, Site Procedural Marking Equipment, Devices, Alternative, and/or and Implants Site Marking Verified Exception in Accordance with Facility Policy Anesthesia Review Antibiotic Received n/a All Anesthesia Yes Within an Concerns Addressed Appropriate Time Interval Prior to Surgical Incision Surgeon Review Anticipated Blood Yes Expected Case Yes Loss Risk Addressed Duration Addressed Critical and Yes Non-Routine Steps to be Performed Addressed Nurse Review Equipment Yes Fire Risk Yes Checks/Concerns Assessment Addressed Completed and Interventions Performed Diagnostic and n/a Sterilization Yes Radiological Test Concerns Addressed Results Displayed are Appropriate and Labeled Other Concerns Yes Addressed Time Out Jim Ortiz MD, Time Out Time 10/05/23 07:38:00 Participants Talita Gerard RN, Michelle Ivan RN Last Modified By: Talita Gerard RN 10/05/23 13:54:37 Patient Positioning MAGR Pre-Care Text: A.280 Identifies baseline musculoskeletal status Im.40 Positions the patient Im.80 Applies safety devices Entry 1 Procedure Interscalene Body Position Semi-Fowlers Block(Right) Left Arm Position Resting at Side Right Arm Position Resting at Side Left Leg Position Extended Right Leg Position Extended Feet Uncrossed? Yes Press Points Checked Yes Outcome Met (O.80) Yes Last Modified By: Talita Gerard RN 10/05/23 13:55:57 Post-Care Text: E.290 Evaluates musculoskeletal status O.80 Patient is free from signs and symptoms of injury related to positioning Skin Prep MAGR Pre-Care Text: A.30 Verifies allergies Im.270 Performs skin preparation Im.270.1 Implements protective measures to prevent skin and tissue injury due to chemical sources Entry 1 Skin Prep Syntegrity Prep Agents (Im.270) Chlorhexidine Gluconate Prep By Jim Ortiz MD and Alcohol Prep Area (Im.270) Shoulder, Neck Prep Area Details Right Skin Prep Agent Dry Yes Without Pooling Hair Removal Syntegrity Hair Removal Methods No hair removal performed Outcome Met (O.100) Yes Last Modified By: Hal (more content not included)... [facility] MAGR Intraoperative Record MAGR Intra-Op Record Summary Primary Physician: Arely Allen DO Finalized Date/Time: 10/05/23 09:49:41 Pt. Name: CHILDERSEMILE D.O.B./Sex: 1945 FEMALE Med Rec #: [id number] Physician: Arely Allen DO Financial #: [id number] Pt. Type: D Room/Bed: [facility] Admit/Disch: 10/05/23 06:26:06 - Institution: Case Times MAGR Entry 1 Patient In Room Time 10/05/23 07:50:00 Out Room Time 10/05/23 09:48:00 Anesthesia Start Time 10/05/23 07:51:00 Stop Time 10/05/23 09:48:00 Surgery Start Time 10/05/23 08:28:00 Stop Time 10/05/23 09:35:00 Last Modified By: Latisha Holcomb RN 10/05/23 09:49:38 Case Attendance MAGR Entry 1 Entry 2 Entry 3 Case Attendee Arely Allen Robert M MD Baumer, Erica RN Andrew DO Role Performed Surgeon - Primary Anesthesiologist of Distributing Clerk Record Time In 10/05/23 07:54:00 10/05/23 07:50:00 10/05/23 07:50:00 Time Out 10/05/23 09:16:00 10/05/23 09:48:00 10/05/23 09:48:00 Procedure Arthroplasty Shoulder Arthroplasty Shoulder Arthroplasty Shoulder Total Reverse(Right) Total Reverse(Right) Total Reverse(Right) Last Modified By: Latisha Holcomb RN, Erica RN Baumer, Erica RN 10/05/23 09:49:38 10/05/23 09:49:38 10/05/23 09:49:38 Entry 4 Entry 5 Entry 6 Case Attendee Marilyn Dunn ACQUISITION ADVISOR Chinedu DAVIDSON, Boogie Cordero CST CSFA Role Performed Aerial Erector Aerial Erector Scrub Personnel Time In 10/05/23 07:50:00 10/05/23 07:50:00 10/05/23 07:50:00 Time Out 10/05/23 09:48:00 10/05/23 09:48:00 10/05/23 09:48:00 Procedure Arthroplasty Shoulder Arthroplasty Shoulder Arthroplasty Shoulder Total Reverse(Right) Total Reverse(Right) Total Reverse(Right) Last Modified By: Latisha Holcomb RN, Erica RN Baumer, Erica RN 10/05/23 09:49:38 10/05/23 09:49:38 10/05/23 09:49:38 General Comments: JOSE LUIS PORTILLO (ARTHREX) Surgical Procedures MAGR Pre-Care Text: A.20 Verifies operative procedure, surgical site, and laterality Im.150 Develops individualized plan of care Entry 1 Procedure Arthroplasty Shoulder Primary Procedure Yes Total Reverse Primary Surgeon Arely Allen DO Surgeon Comment RIGHT REVERSE TOTAL Start 10/05/23 08:28:00 SHOULDER ARTHROPLASTY Stop 10/05/23 09:35:00 Anesthesia Type General Surgical Service Orthopedics Wound Class Clean Technique Details Closure Technique Primary Entire procedure No was performed via laparoscope or robotic assistance Last Modified By: Latisha Holcomb RN 10/05/23 09:35:24 Post-Care Text: O.730 The patient's care is consistent with the individualized perioperative plan of care General Case Data MAGR Pre-Care Text: A.350.1 Classifies surgical wound Entry 1 Case Information OR MAGR OR 05 Case Level Level 5 Wound Class Clean Specialty Orthopedics ASA Class 2 Diagnosis Preop Diagnosis DJD, RGHT SHOULDER Postop Same As Preop Yes Postop Diagnosis DJD, RGHT SHOULDER Blunt or No Is the procedure No penetrating injury considered occured prior to Emergent/Urgent? the start of the procedure: Last Modified By: Latisha Holcomb RN 10/05/23 08:30:55 Post-Care Text: O.760 Patient receives consistent and comparable care regardless of the setting Time Out MAGR Entry 1 Procedure(s) Arthroplasty Shoulder Total Reverse(Right) Time Out Checklist Verifications Team Introductions Yes Confirmed Identity, Yes Completed Procedure, Incision Site, and Consent(s) Presence of Yes Site Verification, Yes Necessary Site Marking, Site Procedural Marking Equipment, Devices, Alternative, and/or and Implants Site Marking Verified Exception in Accordance with Facility Policy Anesthesia Review Antibiotic Received Yes All Anesthesia Yes Within an Concerns Addressed Appropriate Time Interval Prior to Surgical Incision Surgeon Review Anticipated Blood Yes Expected Case Yes Loss Risk Addressed Duration Addressed Critical and Yes Non-Routine Steps to be Performed Addressed Nurse Review Equipment Yes Fire Risk Yes Checks/Concerns Assessment Addressed Completed and Interventions Performed Diagnostic and Yes Sterilization n/a Radiological Test Concerns Addressed Results Displayed are Appropriate and Labeled Other Concerns n/a Addressed Time Out Arely Allen Time Out Time 10/05/23 08:27:00 Participants Dylan MARTIN, Jim Ortiz MD, Latsiha Holcomb RN, Marilyn DunnA ACQUISITION ADVISOR, Chinedu ACQUISITION ADVISOR, Naa DAVIDSON CSFA, Boogie Ferrer Last Modified By: Latisha Holcomb RN 10/05/23 08:31:26 Patient Positioning MAGR Pre-Care Text: A.280 Identifies baseline musculoskeletal status Im.40 Positions the patient Im.80 Applies safety devices Entry 1 Procedure Arthroplasty Shoulder Body Position Beach Chair Total Reverse(Right) Left Arm Position Resting at Side Right Arm Position Resting at Side Left Leg Position Other/see comments Right Leg Position Other/ (more content not included)... [facility] [place] [facility] [place] Summary Primary Physician: Arely Allen DO Finalized Date/Time: 10/05/23 11:02:13 Pt. Name: EMILE CHILDERS/Sex: 1945 FEMALE Med Rec #: [id number] Physician: Arely Allen DO Financial #: [id number] Pt. Type: D Room/Bed: [facility]/ Admit/Disch: 10/05/23 06:26:06 - Institution: PACU Case Times MAGR Entry 1 In PACU I 10/05/23 09:47:00 Discharge from PACU 10/05/23 10:55:00 I Last Modified By: Ana M Garcia RN 10/05/23 11:02:06 Finalized By: Ana M Garcia RN Document Signatures Signed By: Ana M Garcia RN 10/05/23 11:02 [facility] MAGR Preoperative Recordon 0 10-05-2023 MAGR Preoperative Record MAGR Pre-Op Record Summary Primary Physician: Arely Allen DO Finalized Date/Time: 10/05/23 08:38:46 Pt. Name: EMILE CHILDERS Urban Stevens/Sex: 1945 FEMALE Med Rec #: [id number] Physician: Arely Allen DO Financial #: [id number] Pt. Type: D Room/Bed: [facility] Admit/Disch: 10/05/23 06:26:06 - Institution: Pre-Op Case Times MAGR Pre-Care Text: Patient will be optimally prepared for surgery. Patient is free from s/s of injury. Provide information to patient/family related to plan of care. Verify patient allergies. Confirm identity and verify consent before the operative or invasive procedure. Entry 1 Patient Arrival Time 10/05/23 06:34:00 Preop Departure 10/05/23 07:48:00 Last Modified By: Latisha Holcomb RN 10/05/23 08:38:45 Post-Care Text: Patient is prepared mentally and physically and is ready for surgery. The patient remains free from s/s of injury. Patient/family express understanding of plan of care and participate in decisions affecting his or her perioperrative plan of care. Allergies documented appropriately. Patient identifiers and consent correct. General Comments: Pt arrives to psw ambulatory. Pt denies cp, sob, cough or flu like symptoms. Pt denies pacemaker/defibillato r or sleep apnea. Finalized By: Latisha Holcomb RN Document Signatures Signed By: Latisha Holcomb RN 10/05/23 08:38 [facility] Nutrition Noteon 10-05-2023 Nutrition Note Pt s/p same day surgery for scheduled Rt shoulder fx. Diet advanced as tolerated to Regular, appears to have eaten 100% of lunch. 09/10 pre-admit wt 99.4kg, no previous wts on file, denied any wt changes. No new labs. Will monitor for changes in POC. Normal [facility] Operative Report - Surgeon/P shareejonas 10-05-2023 Operative Report - Surgeon/Physician Preoperative diagnosis: Primary osteoarthritis right shoulder Postoperative diagnosis: Same Procedure: Right reverse total shoulder replacement Surgeon:Jame Allen D.O. Anesthesia: General With a preoperative interscalene block Indications for surgery: Progressive loss of function and progression of pain with failure of conservative treatment Estimated blood loss: 350 Complications: None Findings: [id number] with flattening of the humeral head and erosion of the glenoid both anteriorly and posteriorly Procedure summary: After administration of anesthesia was placed in the beachchair position I then prepped initially with isopropyl alcohol and allowed this to completely dried and the patient was prepped again with Betadine and then draped in the usual fashion. A timeout was taken. An anterior deltopectoral approach was utilized an incision was made dissection was carried down to the deltopectoral interval the cephalic vein was mobilized and retracted laterally the biceps was identified the pectoralis was identified the conjoined tendon was identified. The deltoid was released a Brown retractor was placed under the deltoid. The conjoined tendon was bluntly mobilized with my index finger and I released about 1/2 cm of the pectoralis. The biceps tendon was then transected at this level and tenodesed to the pectoralis. The patient subscapularis was deficient. I opened the capsule and revealed the shoulder. The shoulder was carefully dislocated and utilizing a 20 degree version guide a cut was taken. There was absence of labrum there was erosive changes in the glenoid I used a baseplate pin guide and central pin was inserted reaming was performed once with a cortical reamer and then again with a peripheral reamer. The pin depth sized to 25 reaming was performed to accommodate 25 central post. The shoulder was extremely tight elected not to use an offset baseplate. A standard baseplate with a 25 post was impacted into place it was snug and secure but I further stabilized it with 2 nonlocking screws superiorly and inferiorly and then 2 locking screws anteriorly and posteriorly. 36 glenosphere was then impacted into place and then further stabilized with a central locking screw torqued between 4 and 5. My attention was turned towards the humerus the canal was opened with a hand-held reamer and then broached sequentially up to size 7 size 7 fit nice and was rotationally stable. It was centered. So I used a central post and reamed with a cheese greater reamer. I then did a trial reduction off the broach and neutral suture lock cup. A +3 mm spacer was stable and the deltoid was tensioned appropriately. The trial components were removed and a size 7 apex stem with a 130 5 suture lock cup and was impacted into place. 3 mm 36 liner was clicked into place and the shoulder was reduced range of motion was taken to extremes there was no tendency towards dislocation. I then irrigated and then soaked the wound in diluted Betadine and irrigated some more I repaired the subcu cutaneous fascia layer and fat with a Vicryl suture then a running 3-0 subcuticular stitch was performed tincture benzoin and Steri-Strips were applied and sterile dressings were applied. [Electronically Signed on: 10/05/2023 10:07 EDT] Arely Allen DO [Verified on: 10/05/2023 10:07 EDT] Arely Allen DO [facility] Patient Handouton 10-05-[address] ALLEN'S POS T OPERATIVE SHOULDER INSTRUCTIONS: SURGEON'S WRITTEN INSTRUCTIONS: 1. If you have been given a cryo cuff after surgery you should use it as much as possible for the first 24-48 hours. After that it is optional. TIP: Many patients prefer to use it a little longer because it helps reduce pain. 2. You should wiggle your fingers frequently. 3. Change your dressings in 1 day. If steri-strips have been applied DO NOT remove them. When the wound is clean and dry you may leave it open to air but again DO NOT remove any steri-strips that have been applied. 4. You may shower in 1 day but do not let the water stream directly strike the wound. 5. Do pendulum exercises for at least 10 minutes twice a day. 6. If you have any problems or concerns, please call the office at [phone]. 7. Follow up as scheduled. [facility] XR Shoulder 1 View Righton 0 10-05-2023 XR Shoulder 1 View Right EXAM: XR Shoulder 1 View Right HISTORY: Status post Shoulder Replacement COMPARISON: None TECHNIQUE: Single AP view of the right shoulder was obtained with portable technique at 10:08 AM. FINDINGS: There is a ball in cup type right shoulder prosthesis which appears unremarkably positioned. Mild soft tissue swelling with soft tissue air compatible with recent surgery. No definite acute fracture or dislocation. IMPRESSION: Right shoulder study demonstrates grossly unremarkable post arthroplasty changes as noted. Follow-up as needed. Final Dictated by: Josafat Thakur MD Dictated DT/TM: 10/06/23 12:54 Signed (Electronic Signature): Josafat Thakur MD 10/06/23 4:53 pm Technologist: Kwaku MARMOLEJO [facility] Comment on above: Order Comment: amy lt status post shoulder replacement Progress Note - Nurseon 09-16 Progress Note - Nurse Pre-op call for 10-05-2023 surgery made. Pt denies cold/flu symptoms. Pt given arrival time of 0630 on 10-05-2023. Pt reminded of NPO status after midnight except for any meds that she was instructed to take with sip of water, hibiclens shower, no jewerly, to bring photo ID and insurance card- pt with understanding. [Electronically Signed on: 10/02/2023 09:47 EDT] Michelle Ivan RN [Verified on: 10/02/2023 09:47 EDT] Michelle Ivan [facility] Coding Summaryon 09-21-2023 Coding Summary HTMLBase 64 AtqxyszeEPi6bTo+PGhlY WQ+PX4HVOIeO96kzLGpiZ 8yX0TBRQzMUucyICPNHQv VAgYjiiVfEH9gyIMvJJLy IC8+KL9eJYAeCfmteAXza 2X0sLK6L42lrk1fPFrobE Y3XJHjUiQjkktgq2jkcEi 6IDcuNmluOyBt REOzsN34RKK6zD37Oz19x IVjvGMfh1hmtHd6CqZbVM FtRSN2uFgrTEfey8RmFXX lR13rrPDiz4F9 AWCsmRaytYIcFxAlhST8i A5bLIribimrk2kvmhlxRl y7la00vYSqd8F4eTS3D7O dizF9XBHxyTQr ShunqWREuY8jbreim1cwj pdaFxSnWVBoKKw2YQj5FD PeaJolQuFyNE00CRC6ZAG idiGgC1OhWUSk lVirOaN4v4O3Qd7QV5VNS jxfN9QMDHFQXNfevIA+PC 39gg31U1GgZkkdBgs2JJV kZFR6cZV6qU9s ESFuORxuf0E9kLG0R5Lzd bFigj2lw3bhCTXePJxbR2 3mvRYma3C5NPEivON9ENA qsNewElJpwH12 Oyc+HYSpxYfaa1FwMyone 4lzf1xlxHn2MlqfEGCucs JvyWlfSAX9w9QzZc2jOJE ojUZ0rCP3sE7c AeMpBiU9BYqoB328PrUne EUwGddzL15zD8UqnII+PH KoPzn9IANzzPecYB7wC0Z hZGRpbmctbGVm yIobVH4yLWWpxatuOFPox S1uQHClK7z4SzEcMwP3RU haU8MuMMBvgnewJx17uH0 wLlQsUyB7NQgd J7PaxvO7MSRkaOYdETbiU EL8U94vg5T4WMIzOAFzIY U7tDL1sD1dbIccgfyzqVL mdDsgdmVydGlj OKpkHZgyW736AVYdbDuiD kNvZGluZyBEYXRlOiAgMD gvMDUvMjAyNDwvdGQ+PHR tCWB6eOswHZFl sBEqUWqqCg6sdAykoAueT B1dNLDbdcsnJLUhrC8wQN JtjXLcoOjtIK4oHLOcfec bt865EbRgYCZ4 JPHjcVTzJ8JuuM6vJnZwD KSuIJLmZ2QgsPOrUBwcZ4 10WZmuJmF8SYYmrzAtN2D sLWFsaWduOiB0 f9K2Ce7Mi9AcwedjV6Fkg EKtQiQdPdlmYTb5C4UsZq wvdHI+GS40KENrIK03PDg 8YCA0lHvsRIns SHKmF7DxaK5mUxEdBYHiM GRkOyc+PHRhYmxlIHdpZH RoPScxMDAlJyBzdHlsZT0 iXk7hWSPoMCIm nPakdMGcGzGjx9toVCBkY EnqRA3fmPhyE5JtqYK9JZ Yqc3c9Ax19L89pT1GlcGT +CZXyvVL0lAP7 dC5jFeMuUwH2BMwdZ220W tIkmBGlZmdcb9dce8sfiX h1AhQ2DBTlgkVmzBewRTR 1e1TiMn23U80k IHdpZHRoPSIxNSUiIHZhb Kkvsf6tdO9bTn0+PGNvbC G3tSM9yB1vMtCqYsG8KPf lG404KkFopYMh Eunem2zdx6vxaZr0RdShC QXzorCshHcpEBW4r1FyCt 44M0BifFfjr2AmZos7bb4 6pWKzz9Y3xUT3 S1AqFISteruohOKbhRgvD J3zEPBazoszJPVxcJ6iOF NqZ9a4SoEgXxZ7RZnuR6W yhaT3ZYGrqOHq UMUxsYNTwR4ccovbh4ubz czqJyMiSTEcBSr5SVk3IF VzgKbrXrAkLMU0GyL2NAH 0lNSwxD2pkKgy scfmsX3eXho+FJR0rGFto PJOAN5pLdoqeEF+PHRkIH O3jIfkKCzjWEZpuF7kXXZ gT9t8DjGtBuP8 JMxmO6IeyhH1HVMfzRSyW GBqwVJWdC0ngmmxs1gmgo rzSrXuLVBnGWl1YXx9FXN saWduOiBsZWZ0 TvK0DTT0vIOwzH6htGluy watcJ2mDce+QmlydGggRG T8EWu1H6ZzKeu7ZYNgzSp dAV6gsHYhWMqc Bz8ndLeotRdcSE9cABEst gtjb746TiCum3yhNNBrdH ZmCSzfYWD3I90ts2J3BXF yXFXfVEU4eMN6 nX0kdCtcbkjvdAAupVnek bRttQunXMxhBLhuA903VP NsgOttApEtOAs8U6OlJch 5OOBgdQyxKN3z uAAkOXsyOw1xhZlsxPriR D3hCWItpedfa804JbTef5 ydQPQogVIuMOqpJBA9N87 xp0J7CSPuHKJt HUL5iTV7iZ4ofSdnaqnng GVmdDsgdmVydGljYWwtYW cvR548YXDumPwrQrIacHb 1A1UfYsy7YELt eTrzYK1obTDcGHxyEs0oh ItbxHfpZM9hLOMctkizl4 03ZtOgh3bqEEUskPDvUDj gBSF5R62cw5X3 MFOhBAZjHHV3gNR1mH4xm GlnbjogbGVmdDsgdmVydG tmFLkzYVsaO944HMUjiEp nPlBhdGllbnQg VVcpNIh7T6QfDipnrXK+P T67AXFxGB02lQTbqYVga6 mgaEj3IdLoBFRaJXM0qKr kQAzut9IeXRSr O30muGBml9H5JGXgkXgkb MMfGfTjwPM8hR2lSQaeyw nyl2jlupkoExjfx0wunb5 8nX82S17eUPqp ZHRoPSIzMCUiIHZhbGlnb o1geX2pQj3+AQKdeBW9kD E1aM8kIEJhQwC2YCylZ50 9InRvcCIvPjxj d6lyq1uteRx8KgW0TPClr eCjzWamMNB6v4KrIu23U6 9sIHdpZHRoPSIyMCUiIHZ rbTvyjj4weF2t Ii8+KNFktJS3pKJ7tL3fC gHmYlU8DKaxN303VoWraW KcKvqrP83sT3ZevTG+PHR qVvq3VXFsqSrd TJ3qiDKhDAfkDt6dZQY5K fJrDnQcEHvaB2QcEFOzvs htggdwyHD5ARUjXJKhuQ0 1Sv6iuMcoQJOw qSACvA8yihzoq2igennbJ qGkRCVdYYy5OSt3RIZhlK vaWrVbGLV0WgC2QAS7gXJ bnN0ejHipcbgz wB5bZ4KhDKYjnsyrFr95l B0hJrXwSdF8QJrfAwk+Qk NAI8NDBLIOGG6YKLdFSXW 4X8XyJyc6BGYx fYgmOP0lzXNlAItyUi4gw FwhjOudOG9xPYXnvcmvHO KpsD3cYZXzzNMhoGayQG9 aRAVvjsxlr731 GlLeDOJ8NVXmtWAzJ6Qge K5lWoQzUNBtZQPeO2TqiM EuIUcgY597KUqfQhR7DYH eicIuO2UvTWBm zGfnItU8x6P1Fg7oQS6xJ s4fPCV7OA35IJ51qUSkc3 X3dCW4D8IdMVUwkflmhbv imPA6LQRlEUWw kK71dUQwSZcaPa5fv0U5w 485VWJoRCLslV84Wa2nfE bzXSSfxNRZtD3jybntp7z vcjogIzAwMDAw AKg3RMq0YSSixMhlEqAoN EO0YkD4LGN5yOZkwR0ttK jjgwdueO1iQfc+NzcgWWV owuP7U8RgQmk7 LWZmkCcbFO0pnQWtAHqlZ q6teJlzdCqrLP8gJAWftu ieRXOhjT2sVZJztBByzXh zSR8mEXFukphy g449QiWzARS5JXYpsURcN 9EzhK2dQkRuHGJwXJXlC5 GtnEPsYXjoH147EOdtIoA 8EWDustTdY8Uk WPMydXsjJaW3c8V9Do3AE E3JXSZ6O2WmYqo0FAEhzW dySJ1xmPZaWTiiFz6qaMv nzOurUH2sPLWe urokPYGxsO1pGHTndTMua RkkXA3tIHCjodaxh744Xa KlIED3IWHkbGFaI3UgpW3 yOiAjMDAwMDAw G6EmcQHbKRxkL112ZUkfA vS6LWJcegFrA4XpCFGjmT vxBcP5a3W7Dj0BDKnruLV +ZU01rp95R4Ov UpkbXbg5GGGrIMP7zMO2y Q5aGXHaTJpoz6U4yZX3H5 IhnkYmtd7my3jhHRIsCBf kP05amCRuz9Y7 DQRodHZ4NMMeoJicTcBta G93Oyc+ZDIerQbox4EfKu avb8wjg6lbsOv1JyVpWZE gdmFsaWduPSJ0 l8PvCc04L68tRTpuUMUpD RUxIHGyJELqqAywlh2ceG 9wIi8+WIHlzKY6tZY3nO2 kJnNgOwE5SPcc U796NyTptEMvLbvoy5uhh 7thdDe4UiYdTDFvotFhvG mdYIU8m1IiYq81W2JwaTk cn7FfBor5nr57 cQEbc2M7iHH2W9LfUPZki ifueDQpnHleOM8sJOUmkg evSOXqrH9pLTVoM3o9GcW bOgH2CHapJ4Vy kfY9VPGklCXdVHZgtVVLa P5hzvpiz3wgjyafIxTpDA BpTTh9BJx9EUKntHprAaS qWZG6ToJ0KWP6 wYFdxN2utCcatxpamW2xB yc+FTq4k4vrkSMnBF4coI E8ZH79IB45uDQna4R1aEH 4L6RjFILihmsz twcjfRY2ZWMmKFDwbZ67I y6hlUuhDz9qZCLgERZ5NA EvqRVwW0WduT7zKmUwMZK uBQNtW9DtwKQv SJwwA085ZZjdKoT1EDPyb jLwY1WdGIEynGeyWsB9y2 F9Jd1APP24VQ46KI98fQY fk2J5oML5Q4Ly QOYoavectlcfkIX0HBHmT SRiyZ93Xx1vbJryFd4zAN DmCCA8GPBsbBPeW8QzhK7 yOiAjMDAwMDAw O1AiuYKtUDlmX555AXihN xC1IRNobjQlR5CsNLQjfI yzNbP7e9T3Kl3XZe57DH1 3HG39rIEwq9N7 pJF2N8LaDPRiuhijgytku QF4AEAzTZYnuR07Xh2miA huEx5cODTwQGY0AKQfrUR zW5IbfT1pSdJl XYZbNKMmM0LbwLPbACwuA 900NSblJkE5KZTgkcKrP1 LfNNQwkUoyMbI4m9Y7Iv2 MOSqhtrv5O3Nm PjwvdHI+RZ91QNWgKO28q KEvvDTcy0hkiLz7PdEoVB TiDTN7nYbnMTaaa0IuVNW cN35eiYDps2D1 IGN (more content not included)... [facility] Progress Note - Nurseon 08-17 Progress Note - Nurse PAT Reviewed by Dr. Lee. No new orders received. [Electronically Signed on: 09/14/2023 14:55 EDT] Willa Layne RN [Verified on: 09/14/2023 14:55 EDT] Willa Layne RN [facility] Provider Orderson 09-14-2023 Provider Orders [id number]. [id number] [facility] C MRSA Screenon 09-12-2023 C MRSA Screen Negative [facility] Comment on above: Performed By: #### 1 [id number] ####[facility] (DEFAULT)[address] [place] [address] .Auto Diff 1on 09-11-2023 Auto [place] % 11 % Normal 12 [facility] Comment on above: Performed By: #### 7 [id number], [id number] ####[facility] (DEFAULT)[address] [place] [address] Baso Abs# 0.0 x10 Normal 0.0-0.2 [facility] Comment on above: Performed By: #### 7 [id number], [id number] ####[facility] (DEFAULT)[address] [place] [address] 05948 Basophils/100 WBC (Bld) 0.3 % Normal 0.2-2.0 [facility] Comment on above: Performed By: #### 7 [id number], [id number], [id number] ####[facility] (DEFAULT)[address] [place] [address] 54767 Eos Abs# 0.3 x10 Normal 0.0-0.4 [facility] Comment on above: Performed By: #### 7 [id number], [id number], [id number] ####[facility] (DEFAULT)[address] [place] [address] 37819 Eosinophils/100 WBC (Bld) 5.5 % High 0.9-4.0 [facility] Comment on above: Performed By: #### 7 [id number], [id number], [id number] ####[facility] (DEFAULT)[address] [place] [address] 67040 Lymph Abs# 1.4 x10 Normal 1.3-2.9 [facility] Comment on above: Performed By: #### 7 [id number], [id number], [id number] ####[facility] (DEFAULT)[address] [place] [address] 26840 Lymphocytes/100 WBC (Bld) 26 % Normal 14-48 [facility] Comment on above: Performed By: #### 7 [id number], [id number], [id number] ####[facility] (DEFAULT)[address] [place] [address] 28323 [place] Abs# 0.6 x10 Normal 0.0-0.8 [facility] Comment on above: Performed By: #### 7 [id number], [id number], [id number] ####[facility] (DEFAULT)[address] [place] [address] 70031 Neut Abs# 3.2 x10 Normal 1.5-9.2 [facility] Comment on above: Performed By: #### 7 [id number], [id number], [id number] ####[facility] (DEFAULT)[address] [place] [address] 04510 Neutrophils/100 WBC (Bld) 58 % Normal 44-88 [facility] Comment on above: Performed By: #### 7 [id number], [id number], [id number] ####[facility] (DEFAULT)[address] [place] [address] 25911 [facility] Standardon 09-11-2023 eGFR Non AA >60 Invalid Interpretation Code [facility] Comment on above: Performed By: #### 7 [id number], [id number], [id number] ####[facility] (DEFAULT)[address] [place] [address] 48349 eGFR AA >60 Invalid Interpretation Code [facility] Comment on above: Performed By: #### 7 [id number], [id number], [id number] ####[facility] (DEFAULT)[address] [place] [address] 07892 Anion gap [Moles/Vol] 10.5 mmol/L Normal 5.0-19.0 [facility] Comment on above: Performed By: #### 7 [id number], [id number], [id number] ####[facility] (DEFAULT)[address] [place] [address] 44952 Calcium [Mass/Vol] 9.5 mg/dL Normal 8.9-10.3 [facility] Comment on above: Performed By: #### 7 [id number], [id number], [id number] ####[facility] (DEFAULT)[address] [place] [address] 95131 Chloride [Moles/Vol] 105 mmol/L Normal 101-111 [facility] Comment on above: Performed By: #### 7 [id number], [id number], [id number] ####[facility] (DEFAULT)[address] [place] [address] 80161 CO2 [Moles/Vol] 27 mmol/L Normal 21-32 [facility] Comment on above: Performed By: #### 7 [id number], [id number], [id number] ####[facility] (DEFAULT)[address] [place] [address] 99476 Creatinine [Mass/Vol] 0.79 mg/dL Normal 0.60-1.30 [facility] Comment on above: Performed By: #### 7 [id number], [id number], [id number] ####[facility] (DEFAULT)[address] [place] [address] 20032 Glucose [Mass/Vol] 92.0 mg/dL Normal 74.0-118.0 [facility] Comment on above: Performed By: #### 7 [id number], [id number], [id number] ####[facility] (DEFAULT)[address] [place] [address] 51847 Osmolality 276 mOsm/L Invalid Interpretation Code [facility] Comment on above: Performed By: #### 7 [id number], [id number], [id number] ####[facility] (DEFAULT)[address] [place] [address] 65526 Potassium [Moles/Vol] 4.5 mmol/L Normal 3.6-5.1 [facility] Comment on above: Performed By: #### 7 [id number], [id number], [id number] ####[facility] (DEFAULT)[address] [place] [address] 16145 Sodium [Moles/Vol] 138.0 mmol/L Normal 136.0-144.0 [facility] Comment on above: Performed By: #### 7 [id number], [id number], [id number] ####[facility] (DEFAULT)[address] [place] [address] 03706 Urea nitrogen [Mass/Vol] 15 mg/dL Normal 8-26 [facility] Comment on above: Performed By: #### 7 [id number], [id number], [id number] ####[facility] (DEFAULT)[address] [place] [address] 89262 Urea nitrogen/Creatinin e [Mass ratio] 18.9 mg/mg High 4.6-16.2 [facility] Comment on above: Performed By: #### 7 [id number], [id number], [id number] ####[facility] (DEFAULT)[address] [place] [address] 20311 CBC w/ Auto Diffon 4 Erythrocyte distribution width (RBC) [Ratio] 13.8 % Normal 11.5-15.0 [facility] Comment on above: Performed By: #### 7 [id number], [id number], [id number] #### [facility] (DEFAULT) [address] [place] [address] Hematocrit (Bld) [Volume fraction] 42.6 % High 33.7-40.4 [facility] Comment on above: Performed By: #### 7 [id number], [id number], [id number] #### [facility] (DEFAULT) [address] [place] [address] Hemoglobin (Bld) [Mass/Vol] 14.0 g/dL Normal 11.3-15.9 [facility] Comment on above: Performed By: #### 7 [id number], [id number], [id number] #### [facility] (DEFAULT) [address] [place] [address] Man Diff? Auto Invalid Interpretation Code [facility] Comment on above: Performed By: #### 7 [id number], [id number], [id number] #### [facility] (DEFAULT) [address] [place] [address] MCH (RBC) [Entitic mass] 30 pg Normal 24-34 [facility] Comment on above: Performed By: #### 7 [id number], [id number], [id number] #### [facility] (DEFAULT) [address] [place] [address] MCHC (RBC) [Mass/Vol] 33 g/dL Normal 26-37 [facility] Comment on above: Performed By: #### 7 [id number], [id number], [id number] #### [facility] (DEFAULT) [address] [place] [address] MCV (RBC) [Entitic vol] 91 fL Normal 81-100 [facility] Comment on above: Performed By: #### 7 [id number], [id number], [id number] #### [facility] (DEFAULT) [address] [place] [address] 17398 Platelet 203 x10 Normal 138-427 [facility] Comment on above: Performed By: #### 7 [id number], [id number], [id number] #### [facility] (DEFAULT) [address] [place] [address]65 Platelet mean volume (Bld) [Entitic vol] 10.2 fL Normal 6.3-10.2 [facility] Comment on above: Performed By: #### 7 [id number], [id number], [id number] #### [facility] (DEFAULT) [address] [place] [address] 81901 RBC 4.70 x10 Normal 3.70-5.30 [facility] Comment on above: Performed By: #### 7 164601, [id number], [id number] #### [facility] (DEFAULT) [address] [place] [address]608 WBC 5.5 x10 Normal 3.5-10.5 [facility] Comment on above: Performed By: #### 7 747262, [id number], [id number] #### [facility] (DEFAULT) [address] [place] [address] UA w Culture if Ind Standard on 09-11-2023 Breakpoint UA Normal [facility] Comment on above: Performed By: #### 1 [id number] ####[facility] (DEFAULT)[address] [place] [address] Color (U) Yellow [facility] Comment on above: Performed By: #### 1 [id number] ####[facility] (DEFAULT)[address] [place] [address] Culture? Not Indicated Invalid Interpretation Code [facility] Comment on above: Result Comment: Resu lt created by rule GL_MAGR_ADD_[email or web address] Performed By: #### 1 [id number] ####[facility] (DEFAULT)[address] [place] [address] Glucose (U) [Mass/Vol] Negative [facility] Comment on above: Performed By: #### 1 [id number] ####[facility] (DEFAULT)[address] [place] [address] Ketones Ql (U) Negative [facility] Comment on above: Performed By: #### 1 [id number] ####[facility] (DEFAULT)[address] [place] [address] 40144 Micro? Not Indicated Invalid Interpretation Code [facility] Comment on above: Result Comment: Resu lt created by rule GL_MAGR_ADD_UA_MICRO Performed By: #### 1 [id number] ####[facility] (DEFAULT)[address] [place] [address] 57416 UA Bilirubin Negative Normal [facility] Comment on above: Performed By: #### 1 [id number] ####[facility] (DEFAULT)[address] [place] [address] UA Blood Negative Normal NEGATIVE [facility] Comment on above: Performed By: #### 1 [id number] ####[facility] (DEFAULT)[address] [place] [address] UA Clarity CLEAR Normal CLEAR [facility] Comment on above: Performed By: #### 1 [id number] ####[facility] (DEFAULT)[address] [place] [address] UA Leuk Est Negative Normal NEGATIVE [facility] Comment on above: Performed By: #### 1 [id number] ####[facility] (DEFAULT)[address] [place] [address] UA Nitrite Negative Normal NEGATIVE [facility] Comment on above: Performed By: #### 1 [id number] ####[facility] (DEFAULT)[address] [place] [address] 31801 UA pH 7.5 Normal 5-8 [facility] Comment on above: Performed By: #### 1 [id number] ####[facility] (DEFAULT)[address] [place] [address] 82079 UA Protein Negative Normal NEGATIVE [facility] Comment on above: Performed By: #### 1 [id number] ####[facility] (DEFAULT)[address] [place] [address] UA Spec Grav 1.010 Normal 1.001-1.035 [facility] Comment on above: Performed By: #### 1 [id number] ####[facility] (DEFAULT)[address] [place] [address] 18346 UA Urobilinogen 0.2 mg/dL Normal 0.2-1.0 [facility] Comment on above: Performed By: #### 1 [id number] ####[facility] (DEFAULT)[address] [place] [address] Urine Source Clean Catch Normal [facility] Comment on above: Performed By: #### 1 [id number] ####[facility] (DEFAULT)[address] [place] [address] XR DEXA BONE DENSITYon 06-04 XR DEXA [...] - Low Fracture Risk Electronically authenticated by: ZOHRA CHARLES Date: 2021-06-04 10:25 Normal [facility] Complete Blood Count with Au to Diffon 01-31-2021 Basophils (Bld) [#/Vol] 0.06 10*3/uL Normal 0.00-0.20 [facility] Comment on above: Performed By: #### C BCAD, CMP, LIPD, TSH #### [facility] [address] [place] [id number] Basophils/100 WBC (Bld) 1.2 % Normal [facility] Comment on above: Performed By: #### C BCAD, CMP, LIPD, TSH #### [facility] [address] [place], [place] [id number] Eosinophils (Bld) [#/Vol] 0.22 10*3/uL Normal 0.02-0.50 [facility] Comment on above: Performed By: #### C BCAD, CMP, LIPD, TSH #### [facility] [address] [place], [place] [id number] Eosinophils/100 WBC (Bld) 4.4 % Normal [facility] Comment on above: Performed By: #### C BCAD, CMP, LIPD, TSH #### [facility] [address] [place], [place] [id number] Erythrocyte distribution width (RBC) [Ratio] 13.2 % Normal 11.0-15.0 [facility] Comment on above: Performed By: #### C BCAD, CMP, LIPD, TSH #### [facility] [address] [place], [place] [id number] Hematocrit (Bld) [Volume fraction] 48.5 % High 35.0-47.0 [facility] Comment on above: Performed By: #### C BCAD, CMP, LIPD, TSH #### [facility] [address] [place], [place] [id number] Hemoglobin (Bld) [Mass/Vol] 15.7 g/dL High 11.6-15.5 [facility] Comment on above: Performed By: #### C BCAD, CMP, LIPD, TSH #### [facility] [address] [place], [place] [id number] Lymphocytes (Bld) [#/Vol] 1.3 10*3/uL Normal 0.9-3.9 [facility] Comment on above: Performed By: #### C BCAD, CMP, LIPD, TSH #### [facility] [address] [place], [place] [id number] Lymphocytes/100 WBC (Bld) 26.9 % Normal [facility] Comment on above: Performed By: #### C BCAD, CMP, LIPD, TSH #### [facility] [address] [place], [place] [id number] MCH (RBC) [Entitic mass] 29.6 pg Normal 27.0-33.0 [facility] Comment on above: Performed By: #### C BCAD, CMP, LIPD, TSH #### [facility] [address] [place], [place] [id number] MCHC (RBC) [Mass/Vol] 32.4 g/dL Normal 32.0-36.0 [facility] Comment on above: Performed By: #### C BCAD, CMP, LIPD, TSH #### [facility] [address] [place], [place] [id number] MCV (RBC) [Entitic vol] 92 fL Normal 80-100 [facility] Comment on above: Performed By: #### C BCAD, CMP, LIPD, TSH #### [facility] [address] [place], [place] [id number] Monocytes (Bld) [#/Vol] 0.4 10*3/uL Normal 0.2-0.9 [facility] Comment on above: Performed By: #### C BCAD, CMP, LIPD, TSH #### [facility] [address] [place], [place] [id number] Monocytes/100 WBC (Bld) 7.4 % Normal [facility] Comment on above: Performed By: #### C BCAD, CMP, LIPD, TSH #### [facility] [address] [place], [place] [id number] Neutrophils (Bld) [#/Vol] 3.0 10*3/uL Normal 1.5-7.8 [facility] Comment on above: Performed By: #### C BCAD, CMP, LIPD, TSH #### [facility] [address] [place], [place] [id number] Neutrophils/100 WBC (Bld) 59.7 % Normal [facility] Comment on above: Performed By: #### C BCAD, CMP, LIPD, TSH #### [facility] [address] [place], [place] [id number] Platelet mean volume (Bld) [Entitic vol] 12.20 fL Normal 7.50-12.50 [facility] Comment on above: Performed By: #### C BCAD, CMP, LIPD, TSH #### [facility] [address] [place], [place] [id number] Platelets (Bld) [#/Vol] 167 10*3/uL Normal 140-400 [facility] Comment on above: Performed By: #### C BCAD, CMP, LIPD, TSH #### [facility] [address] [place], [place] [id number] RBC (Bld) [#/Vol] 5.30 10*6/uL High 3.90-5.20 [facility] Comment on above: Performed By: #### C BCAD, CMP, LIPD, TSH #### [facility] [address] [place], [place] [id number] RDW-SD 44.4 fL Normal 37.0-50.0 [facility] Comment on above: Performed By: #### C BCAD, CMP, LIPD, TSH #### [facility] [address] [place], [place] [id number] WBC (Bld) [#/Vol] 5.0 10*3/uL Normal 3.8-11.0 [facility] Comment on above: Performed By: #### C BCAD, CMP, LIPD, TSH #### [facility] [address] [place], [place] [id number] Comprehensive [facility] 01-31-2021 Albumin [Mass/Vol] 4.4 g/dL Normal 3.6-5.1 [facility] Comment on above: Performed By: #### C BCAD, CMP, LIPD, TSH #### [facility] [address] [place], [place] [id number] Albumin/Globulin [Mass ratio] 1.9 {ratio} Normal 1.0-2.5 [facility] Comment on above: Performed By: #### C BCAD, CMP, LIPD, TSH #### [facility] [address] [place], [place] [id number] ALP [Catalytic activity/Vol] 106 U/L Normal 35-119 [facility] Comment on above: Performed By: #### C BCAD, CMP, LIPD, TSH #### [facility] [address] [place], [place] [id number] ALT [Catalytic activity/Vol] 16 U/L Normal 6-33 [facility] Comment on above: Result Comment: 01/16 Female reference range changed. Performed By: #### C BCAD, CMP, LIPD, TSH #### [facility] [address] [place], [place] [id number] Anion gap [Moles/Vol] 20 mmol/L Normal 12-20 [facility] Comment on above: Result Comment: Effe ctive 02/21/2019 reference range changed. Performed By: #### C BCAD, CMP, LIPD, TSH #### [facility] [address] [place], [place] [id number] AST [Catalytic activity/Vol] 22 U/L Normal 9-34 [facility] Comment on above: Performed By: #### C BCAD, CMP, LIPD, TSH #### [facility] [address] [place], [place] [id number] Bilirubin [Mass/Vol] 0.49 mg/dL Normal 0.30-1.20 [facility] Comment on above: Performed By: #### C BCAD, CMP, LIPD, TSH #### [facility] [address] [place], [place] [id number] BUN/CREA 15 Ratio Normal 6-22 [facility] Comment on above: Performed By: #### C BCAD, CMP, LIPD, TSH #### [facility] [address] [place], [place] [id number] Calcium [Mass/Vol] 10.1 mg/dL Normal 8.6-10.2 [facility] Comment on above: Performed By: #### C BCAD, CMP, LIPD, TSH #### [facility] [address] [place], [place] [id number] Chloride [Moles/Vol] 106 mmol/L Normal 98-107 [facility] Comment on above: Performed By: #### C BCAD, CMP, LIPD, TSH #### [facility] [address] [place], [place] [id number] CO2 [Moles/Vol] 21 mmol/L Normal 20-31 [facility] Comment on above: Performed By: #### C BCAD, CMP, LIPD, TSH #### [facility] [address] [place], [place] [id number] Creatinine [Mass/Vol] 0.8 mg/dL Normal 0.6-1.4 [facility] Comment on above: Performed By: #### C BCAD, CMP, LIPD, TSH #### [facility] [address] [place], [place] [id number] eGFRAA 84 mL/min/1.73m2 Normal >60 [facility] Comment on above: Performed By: #### C BCAD, CMP, LIPD, TSH #### [facility] [address] [place], [place] [id number] eGFRNAA 69 mL/min/1.73m2 Normal >60 [facility] Comment on above: Performed By: #### C BCAD, CMP, LIPD, TSH #### [facility] [address] [place], [place] [id number] Globulin (S) [Mass/Vol] 2.3 g/dL Normal 1.9-3.7 [facility] Comment on above: Performed By: #### C BCAD, CMP, LIPD, TSH #### [facility] [address] [place], [place] [id number] Glucose [Mass/Vol] 106 mg/dL High 65-99 [facility] Comment on above: Result Comment: For FASTING Glucose --- ADA reference ranges: Normal 65-99 mg/dl Prediabetes 100-125 Diabetes >/= 126 Performed By: #### C BCAD, CMP, LIPD, TSH #### [facility] [address] [place], [place] [id number] Potassium [Moles/Vol] 4.7 mmol/L Normal 3.5-5.5 [facility] Comment on above: Performed By: #### C BCAD, CMP, LIPD, TSH #### [facility] [address] [place], [place] [id number] Protein [Mass/Vol] 6.7 g/dL Normal 6.1-8.1 [facility] Comment on above: Performed By: #### C BCAD, CMP, LIPD, TSH #### [facility] [address] [place], [place] [id number] Sodium [Moles/Vol] 142 mmol/L Normal 135-146 [facility] [place] [facility] Comment on above: Performed By: #### C BCAD, CMP, LIPD, TSH #### [facility] [address] [place], [place] [id number] Urea nitrogen [Mass/Vol] 12 mg/dL Normal 7-25 [facility] Comment on above: Performed By: #### C BCAD, CMP, LIPD, TSH #### [facility] [address] [place], [place] [id number] Hemoglobin A1Con 01-31-2021 EAG 128.37 Normal [facility] Comment on above: Performed By: #### A 1C #### [facility] [address] [place], [place] [id number] HbA1c (Bld) [Mass fraction] 6.1 % High 4.0-6.0 [facility] Comment on above: Performed By: #### A 1C #### [facility] [address] [place], [place] [id number] Lipid Panelon 01-31-2021 Cholesterol [Mass/Vol] 155 mg/dL Normal 125-200 [facility] Comment on above: Result Comment: Low risk < 200mg/dL Borderline risk 201-239 mg/dl High risk > or equal to 240 Performed By: #### C BCAD, CMP, LIPD, TSH #### [facility] [address] [place], [place] [id number] Cholesterol in HDL [Mass/Vol] 59 mg/dL Normal >40 [facility] Comment on above: Result Comment: High Cardiovascular Risk HDL <40 mg/dL Low Cardiovascular Risk HDL > or equal to 60 mg/dl Performed By: #### C BCAD, CMP, LIPD, TSH #### [facility] [address] [place], [place] [id number] Cholesterol in LDL [Mass/Vol] 72 mg/dL Normal [facility] Comment on above: Result Comment: LDL ATP III CLASSIFICATION LDL less than 100 mg/dl Optimal LDL 100-129 mg/dl Near or above optimal LDL 130-159 Borderline high LDL 160-189 High LDL greater than 189 mg/dl Very High Performed By: #### C BCAD, CMP, LIPD, TSH #### [facility] [address] [place], [place] [id number] Cholesterol in VLDL [Mass/Vol] 24 mg/dL Normal [facility] Comment on above: Performed By: #### C BCAD, CMP, LIPD, TSH #### [facility] [address] [place], [place] [id number] Cholesterol.total/ Cholesterol in HDL [Mass ratio] 3 {ratio} Normal [facility] Comment on above: Performed By: #### C BCAD, CMP, LIPD, TSH #### [facility] [address] [place], [place] [id number] Triglyceride [Mass/Vol] 120 mg/dL Normal 30-150 [facility] Comment on above: Result Comment: TRIG ATPIII CLASSIFICATIONS TRIG less than 150 mg/dl Normal TRIG 150-199 mg/dl Borderline High TRIG 200-500 mg/dl High TRIG greather than 500 mg/dl Very High Performed By: #### C BCAD, CMP, LIPD, TSH #### [facility] [address] [place], [place] [id number] Microalbumin (with Creat)on 01-31-2021 mALB <1.2 Low [facility] Comment on above: Result Comment: Unab le to calculate mALB/Crea ratio, mALB is <1.2 mg/dL mALB reference range not established. Performed By: #### m ALBC #### [facility] [address] [place], [place] [id number] UCREA 88 mg/dL Normal 28-217 [facility] Comment on above: Performed By: #### m ALBC #### [facility] [address] [place], [place] [id number] TSHon 01-31-2021 TSH 1.190 uIU/mL Normal 0.400-4.500 [facility] Comment on above: Performed By: #### C BCAD, CMP, LIPD, TSH #### [facility] [address] [place], [place] [id number] US BREAST LEFT LIMITEDon US BREAST LEFT LIMITED Patient: EMILE CHILDERS Exam Date: 12/12/2020 : 1945 Gender:F Ordering : DR KIRSTEN HALL Admission #: [id number] Family : Order #: [id number] CLICK HERE TO VIEW EXAM RADIOLOGY REPORT [...] PALPABLE LUMP SHOULD BE BIOPSIED. Dictated by: Zohra Charles M.D. on 12/12/2020 at 10:25 Approved by: Zohra Charles M.D. on 12/12/2020 at 10:29 Normal [facility] MAMM SCREEN 3D DURNA CADon 12-07-2020 MG MAMM SCREEN 3D DURAN CAD Patient: EMILE CHILDERS Exam Date: 12/07/2020 : 1945 Gender:F Ordering : DR KIRSTEN HALL Admission #: [id number] Family : Order #: [id number] CLICK HERE TO VIEW EXAM RADIOLOGY REPORT [...] /bladder cancer at age 71. LOCATION: [facility] BREAST COMPOSITION: Heterogeneously dense,which may obscure small [...] PALPABLE LUMP SHOULD BE BIOPSIED. Dictated by: Zohra Charles M.D. on 12/07/2020 at 14:38 Approved by: Zohra Charles M.D. on 12/07/2020 at 14:44 Normal [facility] CBC AUTO DIFFon 09-12-2020 BASO # 0.1 103/ul Normal 0.0-0.1 [facility] Comment on above: Performed By: #### C BC #### [facility] [address] [id number] Yessy Janelle Basophils/100 WBC (Bld) 1.2 % Normal 0.2-2.0 [facility] Comment on above: Performed By: #### C BC #### [facility] [address] [address] Yessy Janelle EO # 0.2 103/ul Normal 0.0-0.7 [facility] Comment on above: Performed By: #### C BC #### [facility] [address] [id number] Yessy Janelle Eosinophils/100 WBC (Bld) 3.2 % Normal 0.9-7.0 [facility] Comment on above: Performed By: #### C BC #### [facility] [address] [id number] Yessy Janelle Erythrocyte distribution width (RBC) [Ratio] 13.5 % Normal 11.0-15.0 [facility] Comment on above: Performed By: #### C BC #### [facility] [address] [id number] Yessy Janelle Hematocrit (Bld) [Volume fraction] 46.2 % Normal 36.0-48.0 [facility] Comment on above: Performed By: #### C BC #### [facility] [address] [id number] Yessy Janelle Hemoglobin (Bld) [Mass/Vol] 15.1 g/dL Normal 12.0-16.0 [facility] Comment on above: Performed By: #### C BC #### [facility] [address] [place] [address] Yessy Janelle IG # 0.03 10e3/ul Normal 0.00-0.03 [facility] Comment on above: Performed By: #### C BC #### [facility] [address] [place] [address] Yessy Janelle IG % 0.4 % Normal 0.0-0.5 [facility] Comment on above: Performed By: #### C BC #### [facility] [address] [place] [address] Yessy Janelle LYMPH # 1.4 103/ul Normal 1.2-3.8 [facility] Comment on above: Performed By: #### C BC #### [facility] [address] [place] [address] Yessy Janelle Lymphocytes/100 WBC (Bld) 20.3 % Critically low 20.5-60.0 [facility] Comment on above: Performed By: #### C BC #### [facility] [address] [place] [address] Yessy Janelle MANUAL DIFF REQ NO Normal [facility] Comment on above: Performed By: #### C BC #### [facility] [address] [place] [address] Yessy Janelle MCH (RBC) [Entitic mass] 29.3 pg Normal 26.7-34.0 [facility] Comment on above: Performed By: #### C BC #### [facility] [address] [place] [address] Yessy Janelle MCHC (RBC) [Mass/Vol] 32.7 g/dL Normal 29.9-35.2 [facility] Comment on above: Performed By: #### C BC #### [facility] [address] [place] [address] Yessy Janelle MCV (RBC) [Entitic vol] 89.5 fL Normal 81.0-99.0 [facility] Comment on above: Performed By: #### C BC #### [facility] [address] [place] [address] Yessy Janelle MONO # 0.8 103/ul Normal 0.3-0.8 [facility] Comment on above: Performed By: #### C BC #### [facility] [address] [place], [place] [address] Yessy Lynneen Monocytes/100 WBC (Bld) 10.9 % Normal 1.7-12.0 [facility] Comment on above: Performed By: #### C BC #### [facility] [address] [place], [place] [address] Yessylinda Lynneen NEUT # 4.4 103/ul Normal 1.4-6.5 [facility] Comment on above: Performed By: #### C BC #### [facility] [address] [place], [place] [address] Yessy Janelle Neutrophils/100 WBC (Bld) 64.0 % Normal 43.0-75.0 [facility] Comment on above: Performed By: #### C BC #### [facility] [address] [place], [place] [address] Yessy Luis Platelet mean volume (Bld) [Entitic vol] 10.6 fL Normal 9.5-13.5 [facility] Comment on above: Performed By: #### C BC #### [facility] [address] [place], [place] [address] Yessy Janelle PLT 232 103/ul Normal 150-450 [facility] Comment on above: Performed By: #### C BC #### [facility] [address] [place], [place] [address] Yessy Janelle RBC 5.16 106/ul Normal 4.20-5.40 [facility] Comment on above: Performed By: #### C BC #### [facility] [address] [place], [place] [address] Yessy Janelle WBC 6.9 103/ul Normal 4.0-11.0 [facility] Comment on above: Performed By: #### C BC #### [facility] [address] [place] [address] STROKE HEAD WOon 09-13-19 CT STROKE [...] provided to Dr. Encinas. Electronically authenticated by: ZOHRA CHARLES Date: 2020-09-12 13:08 Normal [facility] PROF CHEM 8 (BAS METB)on Anion gap [Moles/Vol] 9.1 mmol/L Normal [facility] Comment on above: Performed By: #### B MP #### [facility] [address] [place] [address] Yessy Janelle Calcium [Mass/Vol] 9.3 mg/dL Normal 8.4-10.2 [facility] Comment on above: Performed By: #### B MP #### [facility] [address] [place] [address] Yessy Janelle Chloride [Moles/Vol] 106 mmol/L Normal 98-107 [facility] Comment on above: Performed By: #### B MP #### [facility] [address] [place] [address] Yessy Janelle CO2 [Moles/Vol] 31.2 mmol/L Critically high 22.0-30.0 [facility] Comment on above: Performed By: #### B MP #### [facility] [address] [place] [address] Yessy Janelle Creatinine [Mass/Vol] 1.04 mg/dL Normal 0.52-1.04 [facility] Comment on above: Performed By: #### B MP #### [facility] [address] [place] [address] Yessy Janelle EGFR-AF QATARI >60 Normal >=60 [facility] Comment on above: Performed By: #### B MP #### [facility] [address] [place], [place] [address] Yessy Janelle EGFR-NON AF QATARI 52 mL/min/1.73m2 Critically low >=60 [facility] Comment on above: Performed By: #### B MP #### [facility] [address] [place], [place] [address] Yessy Janelle Glucose [Mass/Vol] 106 mg/dL Normal 74-106 [facility] Comment on above: Performed By: #### B MP #### [facility] [address], [place] [address] Yessy Janelle Potassium [Moles/Vol] 4.3 mmol/L Normal 3.4-5.0 [facility] Comment on above: Performed By: #### B MP #### [facility] [address] [place] [id number] Yessy Janelle Sodium [Moles/Vol] 142 mmol/L Normal 137-145 [facility] Comment on above: Performed By: #### B MP #### [facility] [address], [place] [address] Yessy Janelle Urea nitrogen [Mass/Vol] 17.0 mg/dL Normal 7.0-17.0 [facility] Comment on above: Performed By: #### B MP #### [facility] [address], [place] [address] Yessy Janelle Urea nitrogen/Creatinin e [Mass ratio] 16.3 mg/mg Normal [facility] Comment on above: Performed By: #### B MP #### [facility] [address] [place], [place] [address] Yessy Janelle Vital Signs Date Time Vital Sign Value Performing Clinician Thierry velasco 10-24-2024 11:01-0400 Body height 160 cm Aleida Putnam MD Work Phone: [facility] 10-24-2024 11:01-0400 Body mass index (BMI) [Ratio] 37.38 kg/m2 Aleida Putnam MD Work Phone: [facility] 10-24-2024 11:01-0400 Body weight 95.71 kg Aleida Putnam MD Work Phone: [facility] 10-24-2024 11:01-0400 Diastolic blood pressure 72 mm[Hg] Aleida Putnam MD Work Phone: [facility] 10-24-2024 11:01-0400 Heart rate 77 /min Aleida Putnam MD Work Phone: [facility] 10-24-2024 11:01-0400 SaO2% (BldA) [Mass fraction] 95 % Aleida Putnam MD Work Phone: [facility] 10-24-2024 11:01-0400 Systolic blood pressure 130 mm[Hg] Aleida Putnam MD Work Phone: [facility] 10-13-2024 11:01-0400 Body height 160 cm Bj Brown DPM Work Phone: [facility] 10-13-2024 11:01-0400 Body mass index (BMI) [Ratio] 37.2 kg/m2 Bj Brown DPM Work Phone: [facility] 10-13-2024 11:01-0400 Body weight 95.25 kg Bj Brown DPM Work Phone: [facility] 10-13-2024 11:01-0400 Respiratory rate 16 /min Bj Brown DPM Work Phone: [facility] 07-28-2024 11:22-0400 Body height 160 cm Bj Brown DPM Work Phone: [facility] 07-28-2024 11:22-0400 Body mass index (BMI) [Ratio] 37.2 kg/m2 Bj Brown DPM Work Phone: [facility] 07-28-2024 11:22-0400 Body weight 95.25 kg Bj Brown DPM Work Phone: [facility] 07-28-2024 11:22-0400 Respiratory rate 18 /min Bj Brown DPM Work Phone: [facility] 06-07-2024 14:14-0400 Body height 160 cm Aleida Putnam MD Work Phone: [facility] 06-07-2024 14:14-0400 Body mass index (BMI) [Ratio] 37.2 kg/m2 Aleida Putnam MD Work Phone: [facility] 06-07-2024 14:14-0400 Body weight 95.25 kg Aleida Putnam MD Work Phone: [facility] 06-07-2024 14:14-0400 Diastolic blood pressure 62 mm[Hg] Aleida Putnam MD Work Phone: [facility] 06-07-2024 14:14-0400 Heart rate 77 /min Aleida Putnam MD Work Phone: [facility] 06-07-2024 14:14-0400 SaO2% (BldA) [Mass fraction] 98 % Aleida Putnam MD Work Phone: [facility] 06-07-2024 14:14-0400 Systolic blood pressure 100 mm[Hg] Aleida Putnam MD Work Phone: [facility] 03-10-2024 09:50-0500 Body height 160 cm Bj Brown DPM Work Phone: [facility] 03-10-2024 09:50-0500 Body mass index (BMI) [Ratio] 38.26 kg/m2 Bj Brown DPM Work Phone: [facility] 03-10-2024 09:50-0500 Body weight 97.98 kg Bj Brown DPM Work Phone: [facility] 03-10-2024 09:50-0500 Respiratory rate 18 /min Bj Brown DPM Work Phone: [facility] 12-31-2023 10:26-0500 Body height 160 cm Bj Brown DPM Work Phone: [facility] 12-31-2023 10:26-0500 Body mass index (BMI) [Ratio] 38.26 kg/m2 Bj Tavares DPM Work Phone: [facility] 12-31-2023 10:26-0500 Body weight 97.98 kg Bj Chaitanya DPM Work Phone: [facility] 12-31-2023 10:26-0500 Diastolic blood pressure 80 mm[Hg] Bj Tavares DPM Work Phone: [facility] 12-31-2023 10:26-0500 Heart rate 84 /min Bj Chaitanya DPM Work Phone: [facility] 12-31-2023 10:26-0500 Systolic blood pressure 125 mm[Hg] Bj Tavares DPM Work Phone: [facility] 11-25-2023 14:03-0400 Body height 160 cm Tio Chaseer DO Work Phone: [facility] 11-25-2023 14:03-0400 Body mass index (BMI) [Ratio] 38.26 kg/m2 Tio Chaseer DO Work Phone: [facility] 11-25-2023 14:03-0400 Body weight 97.98 kg Tio Chaseer DO Work Phone: [facility] 11-25-2023 14:03-0400 Diastolic blood pressure 72 mm[Hg] Tio Chaseer DO Work Phone: [facility] 11-25-2023 14:03-0400 Systolic blood pressure 126 mm[Hg] Tio Chaseer DO Work Phone: [facility] 10-15-2023 10:33-0400 Body height 161.3 cm Bj Tavares DPM Work Phone: [facility] 10-15-2023 10:33-0400 Body mass index (BMI) [Ratio] 38.01 kg/m2 Bj Tavares DPM Work Phone: [facility] 10-15-2023 10:33-0400 Body weight 98.88 kg Bj Tavares DPM Work Phone: [facility] 10-15-2023 10:33-0400 Diastolic blood pressure 80 mm[Hg] Bj Chaitanya DPM Work Phone: [facility] 10-15-2023 10:33-0400 Heart rate 77 /min Bj Tavares DPM Work Phone: [facility] 10-15-2023 10:33-0400 Systolic blood pressure 124 mm[Hg] Bj Tavares DPM Work Phone: [facility] Encounters Encounter Date Encounter Type Care Provider Facility Start: 10-24-2024 End: 10-24-2024 Office outpatient visit 25 minutes Aleida Putnam MD Work Phone: [facility] Comment on above: Acquired hypothyroid ism (Primary Dx); Diet-controlled diabetes mellitus (HCC); 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); Type 2 diabetes mellitus with diabetic chronic kidney disease (HCC); 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); Type 2 diabetes mellitus with other specified complication (HCC); Morbid (severe) obesity due to excess calories ([facility]-HCC); Hypertension secondary to endocrine disorders ; Obesity, class 2; Body mass index (BMI) 37.0-37.9, adult; Murmur, heart Start: 10-24-2024 End: 10-24-2024 ambulatory ALEIDA PUTNAM Not Available Start: 10-13-2024 End: 10-13-2024 Bamboo flowsheet Bj Tavares DPM Work Phone: [facility] Start: 10-13-2024 End: 10-13-2024 Bamboo flowsheet Bj Tavares DPM Work Phone: [facility] Start: 10-13-2024 End: 10-13-2024 Office outpatient visit 15 minutes Bj Tavares DPM Work Phone: [facility] Comment on above: Acquired deformity o f left toe (Primary Dx); Type 2 diabetes mellitus without complication, without long-term current use of insulin (HCC); Pain due to onychomycosis of toenails of both feet; Venous insufficiency Start: 10-13-2024 End: 10-13-2024 ambulatory BJ TAVARES Not Available Start: 09-15-2024 End: 09-15-2024 Bamboo flowsheet Claudia MELGAR Work Phone: [facility] Start: 09-15-2024 End: 09-15-2024 Bamboo flowsheet Claudia MELGAR Work Phone: [facility] Start: 09-15-2024 End: 09-15-2024 Office outpatient visit 25 minutes Claudia MELGAR Work Phone: [facility] Comment on above: Right knee pain, uns pecified chronicity (Primary Dx); Left hip pain; S/P total knee replacement, left; Status post total right knee replacement; Status post total hip replacement, left; Left knee pain, unspecified chronicity; Right shoulder pain, unspecified chronicity Start: 09-15-2024 End: 09-15-2024 ambulatory CLAUDIA LUNA Not Available Start: 09-09-2024 End: 09-09-2024 Telephone encounter Tio Elizabeth DO Work Phone: [facility] Start: 08-31-2024 End: 09-01-2024 Refill Aleida Putnam MD Work Phone: [facility] Comment on above: Anxiety Start: 07-28-2024 End: 07-28-2024 Bamboo flowsheet Bj Tavares DPM Work Phone: [facility] Start: 07-28-2024 End: 07-28-2024 Bamboo flowsjosh Tavares DPM Work Phone: [facility] Start: 07-28-2024 End: 07-28-2024 Patient encounter procedure Bj Tavares DPM Work Phone: [facility] Comment on above: Type 2 diabetes reyna itus without complication, without long- term current use of insulin (HCC) (Primary Dx); Pain due to onychomycosis of toenails of both feet; Venous insufficiency Start: 07-28-2024 End: 07-28-2024 ambulatory BJ TAVARES Not Available Start: 06-16-2024 End: 06-16-2024 Clinisync Result Encounter Aleida Putnam MD Work Phone: [facility] Unsolicited Start: 06-16-2024 End: 06-16-2024 Clinisync Result Encounter Aleida Putnam MD Work Phone: [facility] Unsolicited Start: 06-16-2024 End: 06-16-2024 Telephone encounter Aleida Putnam MD Work Phone: [facility] Start: 06-13-2024 End: 06-13-2024 Patient encounter procedure Aleida Putnam MD Work Phone: [facility] Work Phone: Start: 06-13-2024 End: 06-13-2024 ambulatory Aleida Putnam MD Work Phone: [facility] Work Phone: Start: 06-07-2024 End: 06-07-2024 Assay of hemosiderin, quant Aleida Putnam MD Work Phone: [facility] Start: 06-07-2024 End: 06-07-2024 Patient encounter procedure Aleida Putnam MD Work Phone: [facility] Comment on above: Routine general medi maddison examination at [facility] care facility (Primary Dx); Benign essential hypertension (CMS/HCC); Acquired hypothyroidism (CMS/HCC); Type 2 diabetes mellitus without complication, with long-term current use of insulin; Pure hypercholesterolemia (CMS/HCC); Medicare annual wellness visit, subsequent; Primary hypertension (CMS/HCC) Start: 06-07-2024 End: 06-07-2024 Bamboo flowsheet Aleida Putnam MD Work Phone: [facility] Start: 06-07-2024 End: 06-07-2024 Bamboo flowsheet Aleida Putnam MD Work Phone: [facility] Start: 06-07-2024 End: 06-07-2024 ambulatory ALEIDA PUTNAM Not Available Start: 05-30-2024 End: 05-30-2024 Refill Aleida Putnam MD Work Phone: [facility] Comment on above: Anxiety Start: 05-19-2024 End: 05-19-2024 Bamboo flowsheet Bj Tavares DPM Work Phone: [facility] Start: 05-19-2024 End: 05-19-2024 Bamboo flowsheet Bj Tavares DPM Work Phone: [facility] Start: 05-19-2024 End: 05-19-2024 Patient encounter procedure Bj Tavares DPM Work Phone: [facility] Comment on above: Type 2 diabetes reyna itus without complication, without long- term current use of insulin (Primary Dx); Pain due to onychomycosis of toenails of both feet; Venous insufficiency Start: 05-19-2024 End: 05-19-2024 ambulatory BJ TAVARES Not Available Start: 03-14-2024 End: 03-14-2024 Bamboo flowsheet Arlene Johnston PHYSICIAN VICE PRESIDENT Work Phone: [facility] Start: 03-14-2024 End: 03-14-2024 Bamboo flowsheet Arlene Johnston PHYSICIAN VICE PRESIDENT Work Phone: [facility] Start: 03-14-2024 End: 03-14-2024 Office outpatient visit 10 minutes Arlene Johnston PHYSICIAN VICE PRESIDENT Work Phone: [facility] Comment on above: S/P reverse total sh oulder arthroplasty, right (Primary Dx); Arthritis of right shoulder region Start: 03-14-2024 End: 03-14-2024 ambulatory ARLENE JOHNSTON Not Available Start: 03-10-2024 End: 03-10-2024 Bamboo flowsheet Bj Tavares DPM Work Phone: [facility] Start: 03-10-2024 End: 03-10-2024 Bamboo flowsheet Bj Tavares DPM Work Phone: [facility] Start: 03-10-2024 End: 03-10-2024 Patient encounter procedure Bj Tavares DPM Work Phone: [facility] Comment on above: Type 2 diabetes reyna itus without complication, without long- term current use of insulin (CMS/HCC) (Primary Dx); Pain due to onychomycosis of toenails of both feet; Venous insufficiency Start: 03-10-2024 End: 03-10-2024 ambulatory BJ TAVARES Not Available Start: 02-25-2024 End: 02-25-2024 Refill Laura Herr MA [facility] Comment on above: Anxiety Start: 12-31-2023 End: 12-31-2023 Bamboo flowsheet Bj Tavares DPM Work Phone: [facility] Start: 12-31-2023 End: 12-31-2023 Bamboo flowsheet Bj Tavares DPM Work Phone: [facility] Start: 12-31-2023 End: 12-31-2023 Patient encounter procedure Bj Tavares DPM Work Phone: [facility] Comment on above: Type 2 diabetes reyna itus without complication, without long- term current use of insulin ([facility]/HCC) (Primary Dx); Pain due to onychomycosis of toenails of both feet; Venous insufficiency Start: 12-31-2023 End: 12-31-2023 ambulatory BJ TAVARES Not Available Start: 12-22-2023 End: 12-22-2023 Bamboo flowsheet Arely Allen DO Work Phone: [facility] Start: 12-22-2023 End: 12-22-2023 Bamboo flowsheet Arely Zuritaston DO Work Phone: [facility] Start: 12-22-2023 End: 12-22-2023 Postop follow up visit related to original px Arely Allen DO Work Phone: [facility] Comment on above: S/P reverse total sh oulder arthroplasty, right (Primary Dx) Start: 12-22-2023 End: 12-22-2023 ambulatory ARELY ALLEN Not Available Start: 11-25-2023 End: 11-25-2023 Patient encounter procedure Tio Chaseer DO Work Phone: [facility] Comment on above: Encounter for gyneco logical examination without abnormal finding; Encounter for Papanicolaou smear of cervix; Breast cancer screening by mammogram Start: 11-25-2023 End: 11-25-2023 Patient encounter status Tio Rodney Brennan DO Work Phone: [facility] Start: 11-25-2023 End: 11-25-2023 ambulatory TIO ELIZABETH Not Available Start: 11-10-2023 End: 11-10-2023 Bamboo flowsheet Arely Allen DO Work Phone: [facility] Start: 11-10-2023 End: 11-10-2023 Bamboo flowsheet Arely Urban Tiffany DO Work Phone: [facility] Start: 11-10-2023 End: 11-10-2023 Postop follow up visit related to original px Arely Allen DO Work Phone: [facility] Comment on above: S/P reverse total sh oulder arthroplasty, right; Arthritis of right shoulder region Start: 11-10-2023 End: 11-10-2023 ambulatory ARELY ALLEN Not Available Start: 10-15-2023 End: 10-15-2023 Bamboo flowsheet Bj Tavares DPM Work Phone: [facility] Start: 10-15-2023 End: 10-15-2023 Bamboo flowsheet Bj Tavares DPM Work Phone: [facility] Start: 10-15-2023 End: 10-15-2023 Patient encounter procedure Bj Tavares DPM Work Phone: [facility] Comment on above: Type 2 diabetes reyna itus without complication, without long- term current use of insulin ([facility]) (Primary Dx); Onychomycosis; Toe pain, bilateral; Venous insufficiency Start: 10-13-2023 End: 10-13-2023 Bamboo flowsheet Arely Allen DO Work Phone: [facility] Start: 10-13-2023 End: 10-13-2023 Bamboo flowsheet Arely Allen DO Work Phone: [facility] Start: 10-13-2023 End: 10-13-2023 Postop follow up visit related to original px Arely Allen DO Work Phone: [facility] Comment on above: S/P reverse total sh oulder arthroplasty, right (Primary Dx); Acute post-operative pain Start: 10-07-2023 End: 10-12-2023 Telephone encounter Arely Allen DO Work Phone: [facility] Comment on above: PO instructions Start: 10-05-2023 End: 10-06-2023 ambulatory Arely Allen Facility:[facility] Start: 09-11-2023 End: 09-11-2023 ambulatory ALEIDA PUTNAM Facility:[facility] Start: 06-02-2023 Patient encounter procedure Ramu Allen DO Work Phone: [facility] Start: 04-15-2022 End: 04-15-2022 ambulatory MD Aleida Putnam Work Phone: [facility] Work Phone: Start: 04-15-2022 End: 04-15-2022 Patient encounter procedure MD Aleida Putnam Work Phone: [facility] Work Phone: Start: 06-04-2021 End: 06-05-2021 ambulatory ANUEL ALATORRE Facility:[facility] Start: 12-12-2020 End: 12-13-[address] KIRSTEN HALL Facility:[facility] Start: 12-07-2020 End: 12-08-[address] KIRSTEN HALL Facility:[facility] Start: 09-12-2020 End: 09-12-[address] ALEIDA PUTNAM Facility:[facility] Procedures Date Procedure Procedure Detail Performing Clinician Start: 09-15-2024 End: 09-15-2024 Radex shoulder complete minimum 2 views Claudia MELGAR Work Phone: Start: 06-16-2024 ALL CBC WITH AUTO DIFF Aleida Putnam MD Work Phone: Start: 06-13-2024 Screening mammograph y of bilateral breasts Aleida Putnam MD Work Phone: Start: 06-07-2024 Hemoglobin glycosyla lukas a1c lAeida Putnam MD Work Phone: Start: 03-14-2024 Radex shoulder compl ete minimum 2 views Arlene Johnston PHYSICIAN VICE PRESIDENT Work Phone: Start: 11-10-2023 Radex shoulder compl ete minimum 2 views Arely Allen DO Work Phone: Start: 04-15-2022 Screening mammograph y of bilateral breasts MD Aleida Putnam Work Phone: Plan of Treatment Date Care Activity Detail Author Start: 09-06-2026 End: 09-06-2026 Patient encounter procedure 09/06/2026 1:30 PM EDT Office Visit [facility] [address] [place] [address] Claudia Luna, PA [address] [facility] [place] [address] [facility] Start: 06-16-2025 Urine screening for protein Diabetes: Urine Protein Screening [facility] Start: 06-07-2025 Medicare Annual Wellness (AWV) Medicare Annual Wellness (AWV) [facility] Start: 12-29-2024 End: 12-29-2024 Patient encounter procedure 12/29/2024 11:20 AM EST Office Visit [facility] [address] [place] [phone] Bj Tavares, DPM [address] [facility] [address] [place] [address] [facility] Start: 11-30-2024 End: 11-30-2024 Patient encounter procedure 11/30/2024 2:00 PM EDT Office Visit [facility] [place] [facility] [address] [place] [phone] Tio Elizabeth, DO [address] [place] [address] [facility] [place] [facility] Start: 11-25-2024 End: 11-25-2024 Patient encounter procedure 11/25/2024 11:15 AM EDT Office Visit [facility] [address] [place] [phone] Tio Elizabeth, DO [address] [place] [address] [facility] Start: 10-24-2024 End: 10-24-2026 Heart Transthoracic Transthoracic Echo (TTE) Complete Echocardiography Routine Murmur, heart Expected: 10/24/2024 (Approximate), Expires: 10/24/2026 [facility] Work Phone: Comment on above: Expected: 10/24/2024 (Approximate), Expi res: 10/24/2026 Start: 10-24-2024 End: 10-24-2024 Patient encounter procedure 10/24/2024 11:00 AM EDT Office Visit [facility] [address] [place] [address] Aleida Putnam MD [address] [facility] [address] [place] [address] [address] [place] [facility] Start: 10-17-2024 Influenza vaccination Influenza Vaccine (#1) [facility] Start: 10-13-2024 End: 10-13-2024 Patient encounter procedure [facility] Comment on above: Type 2 diabetes mellitus without complic ation, without long-term current use of insulin (HCC) (Primary Dx); Pain due to onychomycosis of toenails of both feet; Venous insufficiency Start: 09-15-2024 End: 09-15-2024 Patient encounter procedure [facility] Comment on above: Right knee pain, unspecified chronicity (Primary Dx); Left hip pain; S/P total knee replacement, left; Status post total right knee replacement; Status post total hip replacement, left; Left knee pain, unspecified chronicity Start: 09-12-2024 End: 09-12-2024 Patient encounter procedure 09/12/2024 1:00 PM EDT Office Visit [facility] [address] [place] [address] Claudia Luna PA [address] [facility] [address] [place] [address] [facility] Start: 09-06-2024 Hemoglobin A1c measurement Diabetes: Hemoglobin A1C [facility] Start: 07-28-2024 End: 07-28-2024 Patient encounter procedure [facility] Comment on above: Type 2 diabetes mellitus without complic ation, without long-term current use of insulin (HCC) (Primary Dx); Pain due to onychomycosis of toenails of both feet; Venous insufficiency Start: 07-12-2024 End: 07-12-2024 Patient encounter procedure 07/12/2024 10:15 AM EDT Office Visit [facility] [address] [facility] [address] [place] [address] Arely Allen DO [address] [facility] [address] [place] [address] [facility] Start: 07-05-2024 End: 07-05-2024 Patient encounter procedure 07/05/2024 10:15 AM EDT Office Visit [facility] [address] [place] [address] Arely Allen, [address] [place] [address] [facility] Start: 06-08-2024 Urine screening for protein Diabetes: Urine Protein Screening [facility] Start: 06-07-2024 End: 06-07-2024 Patient encounter procedure [facility] Comment on above: Arrived Start: 06-07-2024 End: 06-07-2025 CBC W Auto Differential panel - Blood CBC and differential Lab Routine Benign essential hypertension (CMS/HCC) Acquired hypothyroidism (CMS/HCC) Type 2 diabetes mellitus without complication, with long-term current use of insulin Pure hypercholesterolemia (CMS/HCC) Medicare annual wellness visit, subsequent Expected: 06/07/2024 (Approximate), Expires: 06/07/2025 [facility] Work Phone: Comment on above: Expected: 06/07/2024 (Approximate), Expi res: 06/07/2025 Start: 06-07-2024 End: 06-07-2025 Comprehensive metabolic 2000 panel - Serum or Plasma Comprehensive metabolic panel Lab Routine Benign essential hypertension (CMS/HCC) Acquired hypothyroidism (CMS/HCC) Type 2 diabetes mellitus without complication, with long-term current use of insulin Pure hypercholesterolemia (CMS/HCC) Medicare annual wellness visit, subsequent Expected: 06/07/2024 (Approximate), Expires: 06/07/2025 [facility] Comment on above: Expected: 06/07/2024 (Approximate), Expi res: 06/07/2025 Start: 06-07-2024 End: 06-07-2025 Lipid 1996 panel - Serum or Plasma Lipid panel Lab Routine Pure hypercholesterolemia (CMS/HCC) Medicare annual wellness visit, subsequent Expected: 06/07/2024 (Approximate), Expires: 06/07/2025 [facility] Comment on above: Expected: 06/07/2024 (Approximate), Expi res: 06/07/2025 Start: 06-07-2024 End: 06-07-2025 Microalbumin/Creatini ne panel in random Urine Microalbumin / creatinine urine ratio Lab Routine Type 2 diabetes mellitus without complication, with long-term current use of insulin Medicare annual wellness visit, subsequent Expected: 06/07/2024 (Approximate), Expires: 06/07/2025 [facility] Comment on above: Expected: 06/07/2024 (Approximate), Expi res: 06/07/2025 Start: 06-07-2024 End: 06-07-2025 TSH W/REFLEX TO FT4 TSH W/REFLEX TO FT4 Lab Routine Acquired hypothyroidism (CMS/HCC) Medicare annual wellness visit, subsequent Expected: 06/07/2024 (Approximate), Expires: 06/07/2025 [facility] Comment on above: Expected: 06/07/2024 (Approximate), Expi res: 06/07/2025 Start: 06-01-2024 Medicare Annual Wellness (AWV) Medicare Annual Wellness (AWV) [facility] Start: 05-19-2024 End: 05-19-2024 Patient encounter procedure [facility] Comment on above: Type 2 diabetes mellitus without complic ation, without long-term current use of insulin (Primary Dx); Pain due to onychomycosis of toenails of both feet; Venous insufficiency Start: 04-17-2024 End: 01-24-2025 DBT Breast - bilateral screening Bilateral screening mammogram with tomosynthesis Imaging Routine Breast cancer screening by mammogram Expected: 04/17/2024, Expires: 01/24/2025 [facility] Comment on above: Expected: 04/17/2024, Expires: Start: 03-16-2024 End: 03-16-2024 Patient encounter procedure 03/16/2024 10:00 AM EST Office Visit [facility] [address] [place] [address] Arlene Johnston NP [address] [place] [address] [facility] [place] Start: 03-14-2024 End: 03-14-2024 Patient encounter procedure [facility] Comment on above: S/P reverse total shoulder arthroplasty, right (Primary Dx) Start: 03-10-2024 End: 03-10-2024 Patient encounter procedure 03/10/2024 10:00 AM EST Office Visit [facility] [address] [facility] [address] [place] [address] Bj Tavares, DPM [address] [address] [facility] Start: 12-31-2023 End: 12-31-2023 Patient encounter procedure 12/31/2023 10:00 AM EST Office Visit [facility] [address] [facility] [address] [place] [address] Bj Tavares, DPM [address] [address] [facility] Start: 12-22-2023 End: 12-22-2023 Patient encounter procedure [facility] Comment on above: Arrived Start: 11-25-2023 End: 11-25-2023 Patient encounter procedure 11/25/2023 2:00 PM EDT Office Visit [facility] [address] [place] [address] Tio Elizabeth, DO [address] [place] [address] [facility] Start: 11-10-2023 End: 11-10-2023 Patient encounter procedure [facility] Comment on above: S/P reverse total shoulder arthroplasty, right; Arthritis of right shoulder region Start: 10-18-2023 Influenza vaccination Influenza Vaccine (#1) [facility] Start: 10-15-2023 End: 10-15-2023 Patient encounter procedure [facility] Comment on above: Type 2 diabetes mellitus without complic ation, without long-term current use of insulin ([facility]) (Primary Dx); Onychomycosis; Toe pain, bilateral; Venous insufficiency Start: 10-13-2023 End: 10-13-2023 Patient encounter procedure [facility] Comment on above: Arrived Start: 09-01-2023 Hemoglobin A1c measurement Diabetes: Hemoglobin A1C [facility] Start: 12-06-2022 Glaucoma screening Diabetes: Retinopathy Screening [facility] SENDOUT TEST MISCELLANEOUS [facility] SENDOUT TEST MISCELLANEOUS [facility] Lab Routine Encounter for Papanicolaou smear of cervix Ordered: 11/25/2023 [facility] Work Phone: Comment on above: Ordered: 11/25/2023 Immunizations Immunization Date Immunization Notes Care Provider Fa cility 12-08-2023 Seasonal trivalent influenza vaccine, adjuvanted, preservative free Aleida Putnam MD Work Phone: [facility] 12-08-2023 influenza virus vacc ine, unspecified formulation Aleida Putnam MD Work Phone: [facility] 12-22-2022 Influenza, Seasonal, Quadrivalent, Adjuvanted [facility] DO Work Phone: [facility] 12-22-2022 influenza virus vacc ine, unspecified formulation [facility] DO Work Phone: [facility] 10-22-2022 Pneumococcal Conjuga te PCV 20 [facility] DO Work Phone: [facility] 12-06-2021 Influenza, High-dose Seasonal, Quadrivalent, Preservative Free [facility] DO Work Phone: [facility] 12-06-2021 Influenza, Seasonal, Quadrivalent, Adjuvanted [facility] DO Work Phone: [facility] 11-22-2021 SARS-COV-2 (COVID-19 ) vaccine, mRNA, spike protein, LNP, bivalent, preservative free, 30 mcg/0.3 mL dose, samantha-sucrose formulation [facility] DO Work Phone: [facility] 12-20-2020 influenza, high dose seasonal, preservative-free [facility] DO Work Phone: [facility] 04-12-2020 Pfizer Purple Cap SARS-CoV-2 Vaccination Arely Allen DO Work Phone: [facility] 03-22-2020 Pfizer Purple Cap SARS-CoV-2 Vaccination Arely Allen DO Work Phone: [facility] 11-23-2019 Influenza, High-dose Seasonal, Quadrivalent, Preservative Free Arely Allen DO Work Phone: [facility] 12-07-2018 influenza, high dose seasonal, preservative-free Arely Allen DO Work Phone: [facility] 12-06-2018 Influenza, High-dose Seasonal, Quadrivalent, Preservative Free Arely Allen DO Work Phone: [facility] 12-01-2017 influenza, high dose seasonal, preservative-free Arely Allen DO Work Phone: [facility] 11-27-2016 influenza, injectabl e, quadrivalent, preservative free Arely Allen DO Work Phone: [facility] 11-17-2015 influenza, injectabl e, quadrivalent, preservative free Arely Allen DO Work Phone: [facility] 11-16-2014 influenza, injectabl e, madin alicia canine kidney, preservative free Arely Allen DO Work Phone: [facility] 11-16-2014 pneumococcal polysaccharide vaccine, 23 valent Arely Allen DO Work Phone: [facility] 03-01-2009 novel influenza-H1N1 -09, preservative-free, injectable Arely Allen DO Work Phone: [facility] Payers Date Payer Category Payer Self-pay [id number] 2023 Private Health Insurance 2022 Medicare [employer] MEDICARE REPLACEMENT [id number] 2022-Present [address] [address] [place] [address] [id number] 2022 Medicare (Managed Care) [facility] [place] [address] [id number] 2022 Private Health Insurance [id number] 1959 Medicare [id number] 1959 Medicare [id number] 1945 Unknown [id number] 2.16.840.1.409835.3.579.2. 593 1945 Unknown [id number] 2.16.840.1.049619.3.579.2. 593 1945 Unknown [id number] 2.16.840.1.802280.3.579.2. 593 1945 Unknown [id number] 2.16.840.1.810077.3.579.2. 593 1945 Unknown [id number] 2.16.840.1.748631.3.579.2. 718 1945 Unknown [id number] 2.16.840.1.011566.3.579.2. 718 1945 Unknown [id number] 2.16.840.1.675047.3.579.2. 1259 1945 Unknown [id number] 2.16.840.1.960574.3.579.2. 1259 1946 Unknown [id number] 2.16.840.1.844106.3.579.2. 1258 1946 Unknown [id number] 2.16.840.1.575887.3.579.2. 1258 1946 Unknown [id number] 2.16.840.1.882823.3.579.2. 1258 1946 Unknown [id number] 2.16.840.1.425803.3.579.2. 1258 1946 Unknown [id number] 2.16.840.1.766164.3.579.2. 1258 1946 Unknown [id number] 2.16.840.1.411481.3.579.2. 1258 1946 Unknown [id number] 2.16.840.1.901897.3.579.2. 1258 1946 Unknown [id number] 2.16.840.1.814656.3.579.2. 1258 1946 Unknown [id number] 2.16.840.1.099133.3.579.2. 1258 1946 Unknown [id number] 2..840.1.849979.3.579.2. 1258 1946 Unknown [id number] 2..840.1.720690.3.579.2. 1258 1946 Unknown [id number] 2.16.840.1.390877.3.579.2. 1258 1946 Unknown [id number] 2.16.840.1.019563.3.579.2. 1258 1946 Unknown [id number] 2.16.840.1.061053.3.579.2. 1258 1946 Unknown [id number] 2.16.840.1.300695.3.579.2. 1258 1945 Unknown [id number] 2.16.840.1.039551.3.579.2. 1259 Medicare Medicare Outpatient [id number] [id number] Unknown Kolby PATEL/BRIAN [id number] Unknown [id number] 2.16.840.1.148336.3.579.2. 531 Social History Date Type Detail Facility Tobacco smoking stat [facility] Unknown if ever smoked [facility] Work Phone: Start: 1945 Sex Assigned At Female [facility] Start: 06-27-2022 Tobacco smoking status ORIS Never smoked tobacco [facility] Start: 06-27-2022 Tobacco use and exposure Smokeless tobacco non-user [facility] Start: 11-25-2023 End: 10-24-2024 Alcoholic beverage intake Lifetime non-drinker (finding) [facility] Start: 11-25-2023 End: 06-07-2024 History of Social function [facility] Start: 11-25-2023 End: 06-07-2024 Alcohol Use Disorder Identification Test - Consumption [AUDIT-C] [facility] How often to you hav e a drink containing alcohol? Never [facility] How many standard dr inks containing alcohol do you have on a typical day? Patient does not drink [facility] Start: 01-29-2023 Alcohol Comment caffeine intake: 1-2 cups per day soda,,,caffeine yes type:chocolate [facility] Start: 1945 Sex assigned at Not on file [facility] Tobacco smoking stat [facility] Unknown if ever smoked [facility] Work Phone: Start: 06-14-2024 Sex Female (finding) [facility] Medical Equipment Procedure Code Equipment Code Equipment Origin al Text Equipment Identifier Dates 1 each by Other route if needed (Use one strip to test blood sugar) [id number] Start: 07-21-2023 Functional Status Date Assessment Result Facility 06-07-2024 Patient Health [facility] ionnaire 2 item (PHQ-2) [Reported] [facility] Clinical Notes 10-05-2023 to 10-24-2024 Aleida Putnam MD - 10/24/2024 11:22 AM EDLara Putnam MD - 10/24/2024 11:19 AM Mariama Putnam MD - 10/24/2024 11:19 AM Mariama Putnam MD - 10/24/2024 11:17 AM EDT Note Date & Type Note Facility 10-24-2024 History of Present illness Narrative Associated Problem(s): Acquired hypothyroidism Repeat blood test was normal Associated Problem(s): Type 2 diabetes mellitus with other specified complication (HCC) Labs look good will monitor regularly as needed Associated Problem(s): Morbid (severe) obesity due to excess calories ([facility]) Diet and Exercise Encouraged Associated Problem(s): Obesity, class 2 Needs life style modification. Exercise Routinely Low Calorie Diet 3500 calorie deficit = 1lb weight loss Small portions TIming of meals Reduce Carbohydrate Intake High Protein Diet Associated Problem(s): Body mass index (BMI) 37.0-37.9, adult Weight loss encouraged Associated Problem(s): Hypertension secondary to endocrine disorders Our specific goals, for your hypertension, is to keep your blood pressure less than 140/90, and the importance of weight control. We made recommendations on how to control your blood pressure, and minimize your risk of these copmplications. We also discussed your current barriers to a healthy living and importance of healthy diet and exercise. Prior to your visit today we have reviewed your chart and formed a plan to assist with providing you the best possible care. We reviewed the possible complications of hypertension including, stroke, heart failure and kidney impairment. In addition, we discussed your medications, the importance of taking them as prescribed. 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) Last GFR was >60 Associated Problem(s): Type 2 diabetes mellitus with diabetic chronic kidney disease (HCC) BUN Creatinine improved, resolved Associated Problem(s): 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) F/up with engineering technical specialist regularly Associated Problem(s): Diet-controlled diabetes mellitus (HCC) No Tobacco use Follow ADA 1800 diet low carbohydrate Continue Med Compliance Goal LDL less than 100 Goal BP 130/80 Goal HgbA1c < 7.0% Monitor Feet, monitor for infection Needs Exercise Yearly eye exams Prior to your visit today we reviewed your chart and outlined testing and treatment needed for your care. Reviewed poissble complications of diabetes including, loss of vision, kidney failure and increased risk of heart attacks and stroke. We made recommendations on how to control your blood sugars, and minimize your risk of these complications. We discussed your current barriers to a healthy living and importance of healthy diet and exercise. Images from the original note were not included. HPI Diabetes Additional comments: Last 5.8 Last edited by Laura Herr MA on 10/24/2024 7:25 AM. Subjective Patient ID: Emile Childers is a 79 y.o. female who presents for Diabetes (Last 5.8). Pt states her symptoms for her thyroid have gotten better since reducing her medication to 4 times a week Pt is wanting to find out if she can take the levothyroxine daily and at a lower dosage states only taking it 4 times a week is confusing for her , if new script would like sent to [facility] She presents for her follow-up diabetic visit. She has type 2 diabetes mellitus. Her disease course has been stable. Pertinent negatives for hypoglycemia include no dizziness, nervousness/anxiousness or pallor. Pertinent negatives for diabetes include no chest pain, no polydipsia and no polyphagia. Pertinent negatives for hypoglycemia complications include no blackouts. Symptoms are stable. Pertinent negatives for diabetic complications include no CVA, heart disease or peripheral neuropathy. She is following a diabetic diet. She has not had a previous visit with a dietitian. She participates in exercise daily. There is no change in her home blood glucose trend. An CORRY inhibitor/angiotensin II receptor raghu is being taken. 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 Current Outpatient Medications on File Prior to Visit Medication Sig Dispense Refill ALPRAZolam (Xanax) 0.25 MG tablet Take 1 tablet (0.25 mg) by mouth in the morning and 1 tablet (0.25 mg) before bedtime. This not due at this time. She just got a 90 day supply on 11/25. May fill when due. 180 tablet 0 atorvastatin (Lipitor) 40 MG tablet TAKE 1 TABLET BY MOUTH IN THE MORNING 100 tablet 3 Calcium Carbonate-Vit D-Min (Caltrate 600+D Plus Minerals) 600-800 MG-UNIT chewable tablet every 12 (twelve) hours. esomeprazole (NexIUM) [address] capsule 1 tab(s), Oral, Daily, 0 Refill(s) glucose blood (GNP True Metrix Glucose Strips) test strip 1 each by Other route if needed (Use one strip to test blood sugar) 100 each 1 irbesartan (Avapro) 300 MG tablet TAKE 1 TABLET BY MOUTH DAILY 90 tablet 3 [DISCONTINUED] levothyroxine (Synthroid, Levoxyl) 200 MCG tablet Take 1 tablet (200 mcg) by mouth in the morning. Take before meals. 100 tablet 4 No current facility-administered medications on file prior to visit. I have reviewed and reconciled the history and medication list with the patient today. Allergies Allergen Reactions Morphine GI intolerance Social History Tobacco Use Smoking status: Never Smokeless tobacco: Never Vaping Use Vaping status: Unknown Substance Use Topics Alcohol use: Never Comment: caffeine intake: 1-2 cups per day soda,,,caffeine yes type:chocolate Drug use: Never Family History Problem Relation Name Age of Onset Cancer Mother Arthritis Mother Uterine cancer Mother Hypertension Mother Cancer Father Prostate cancer Father Melanoma Father Colon cancer Father Heart disease Father Cancer Brother Throat cancer Brother Breast cancer Daughter Lung cancer Son Past Medical History: Diagnosis Date Annual physical exam 2013 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 Cataract Chicken pox Diabetes type 2, controlled (HCC) Hyperlipidemia Hypertension Macular degeneration Measles Mumps No intracranial Hemorrhage or CT evidence of acute ischemia 09/12/2020 Osteoarthritis 2012 Screening 2013 Thyroid disease Type 2 diabetes mellitus (HCC) Past Surgical History: Procedure Laterality Date BREAST BIOPSY Left 01/2021 benign CATARACT EXTRACTION Bilateral COLONOSCOPY REVERSE TOTAL SHOULDER ARTHROPLASTY Right 10/05/2023 Dr Allen TOTAL HIP ARTHROPLASTY Left 07/02/2016 Dr Allen TOTAL KNEE ARTHROPLASTY Left 2011 Dr Allen TOTAL KNEE ARTHROPLASTY Right 05/18/2017 Dr Allen Visit Vitals BP 130/72 Pulse 77 Ht 5' 3 Wt 211 lb SpO2 95% BMI 37.38 kg/m OB Status Postmenopausal Smoking Status Never BSA 2.06 m Review of Systems Constitutional: Negative for chills and fever. Cardiovascular: Negative for chest pain. Skin: Negative for pallor. Neurological: Negative for dizziness. Psychiatric/Behavioral: The patient is not nervous/anxious. Endocrine: Negative for polydipsia and polyphagia. Objective Physical Exam Constitutional: General: She is not in acute distress. Appearance: Normal appearance. HENT: Head: Normocephalic. Neck: Vascular: No carotid bruit. Cardiovascular: Rate and Rhythm: Normal rate and regular rhythm. Heart sounds: Murmur heard. Pulmonary: Effort: Pulmonary effort is normal. No respiratory distress. Breath sounds: Normal breath sounds. Neurological: General: No focal deficit present. Mental Status: She is alert and oriented to person, place, and time. Psychiatric: Mood and Affect: Mood normal. Assessment/Plan Problem List Items Addressed This Visit Acquired hypothyroidism - Primary Repeat blood test was normal Relevant Medications levothyroxine (Synthroid, Levoxyl) 112 MCG tablet Obesity, class 2 Needs life style modification. Exercise Routinely Low Calorie Diet 3500 calorie deficit = 1lb weight loss Small portions TIming of meals Reduce Carbohydrate Intake High Protein Diet 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) F/up with engineering technical specialist regularly Hypertension secondary to endocrine disorders Our specific goals, for your hypertension, is to keep your blood pressure less than 140/90, and the importance of weight control. We made recommendations on how to control your blood pressure, and minimize your risk of these copmplications. We also discussed your current barriers to a healthy living and importance of healthy diet and exercise. Prior to your visit today we have reviewed your chart and formed a plan to assist with providing you the best possible care. We reviewed the possible complications of hypertension including, stroke, heart failure and kidney impairment. In addition, we discussed your medications, the importance of taking them as prescribed. DASH diet handouts Diet-controlled diabetes mellitus (HCC) No Tobacco use Follow ADA 1800 diet low carbohydrate Continue Med Compliance Goal LDL less than 100 Goal BP 130/80 Goal HgbA1c < 7.0% Monitor Feet, monitor for infection Needs Exercise Yearly eye exams Prior to your visit today we reviewed your chart and outlined testing and treatment needed for your care. Reviewed poissble complications of diabetes including, loss of vision, kidney failure and increased risk of heart attacks and stroke. We made recommendations on how to control your blood sugars, and minimize your risk of these complications. We discussed your current barriers to a healthy living and importance of healthy diet and exercise. 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 documented in this encounter [facility] 10-13-2024 History of Present illness Narrative Patient: Emile Childers : 1945 PCP: Aleida Putnam MD SUBJECTIVE This is a 79 y.o. female that presents today with a CC of elongated, thick nails. Pt states nails have been elongated and thick for many years and cause pain with ambulation in shoegear. Pt has tried previous treatment with minimal relief. Pt presents today for nail care and treatment. Patient is DM2 Pt also has history of venous stasis to b/l lower extremities. 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 This not due at this time. She just got a 90 day supply on 11/25. May fill when due., Disp: 180 tablet, Rfl: 0 atorvastatin (Lipitor) 40 MG tablet, TAKE 1 TABLET BY MOUTH IN THE MORNING, Disp: 100 tablet, Rfl: 3 Calcium Carbonate-Vit D-Min (Caltrate 600+D Plus Minerals) 600-800 MG-UNIT chewable tablet, every 12 (twelve) hours., Disp: , Rfl: esomeprazole (NexIUM) [address] capsule, 1 tab(s), Oral, Daily, 0 Refill(s), Disp: , Rfl: glucose blood (GNP True Metrix Glucose Strips) test strip, 1 each by Other route if needed (Use one strip to test blood sugar), Disp: 100 each, Rfl: 1 irbesartan (Avapro) 300 MG tablet, TAKE 1 TABLET BY MOUTH DAILY, Disp: 90 tablet, Rfl: 3 levothyroxine (Synthroid, Levoxyl) 200 MCG tablet, Take 1 tablet (200 mcg) by mouth in the morning. Take before meals., Disp: 100 tablet, Rfl: 4 Social History: Social History Socioeconomic History Marital status: Spouse name: Not on file Number of children: Not on file Years of education: Not on file Highest education level: Not on file Occupational History Occupation: retired Tobacco Use Smoking status: Never Smokeless tobacco: Never Vaping Use Vaping status: Unknown Substance and Sexual Activity Alcohol use: Never Comment: caffeine intake: 1-2 cups per day soda,,,caffeine yes type:chocolate Drug use: Never Sexual activity: Defer Other Topics Concern Not on file Social History Narrative Daily exercise Social Drivers of Health Financial Resource Strain: Not on file Food Insecurity: Not on file Transportation Needs: Not on file Physical Activity: Not on file Stress: Not on file Social Connections: Not on file Intimate Partner Violence: Not on file Housing Stability: Not on file ROS: General: denies fever, chills, fatigue, malaise OBJECTIVE LE EXAM: DERM: Elongated thick yellow crumbly nails digits 1 through 10. Negative hair growth with thin shiny atrophic skin bilaterally. Plus one pitting edema to bilateral ankles Negative maceration or peeling between toes of feet or mid arch foot PIPJ rubor to the left 2nd digit VASC: Positive DP and negative PT pedal pulses NEURO: 5.07 [place] Andrea monofilament test diminished to digits and forefoot bilaterally 125Hz tuning fork diminished to 1st MPJ bilaterally ORTHO: Positive pain on palpation to toenails of the left 1,2,3,4,5 toes and right 1,2,3,4,5 toes Flexion deformity of the left 2nd toe ASSESSMENT 1. Type 2 diabetes mellitus without complication, without long-term current use of insulin (HCC) 2. Pain due to onychomycosis of toenails of both feet 3. Venous insufficiency 4. Acquired deformity of left toe PLAN Discussed proper foot care with patient today. Debride nails in length and thickness digits 1 through 10 Patient educated today on proper diabetic foot care including monitoring feet daily for any signs of infection openings in the skin or irregularities to both feet. Patient had a diabetic neurological exam today to both their feet and discussed proper shoe gear. Discussed conservative and surgical treatment options for patient today including postoperative time frame and surgical procedure in detail. Patient may continue with conservative treatments including [id number] anti-inflammatories and other treatments suggested today. Patient may want to be scheduled for surgical intervention in the near future. Discussed possible left 2nd digit PIPJ arthrodesis with K-wire in the future and also patient to use [id number] padding to the toe at this time Bj Tavares DPM documented in this encounter [facility] 09-15-2024 History of Present illness Narrative Images from the original note were not included. Orthopedic Office note: NAME: Emile Childers : 1945 (EST PT) (LAST APPT W/ DR. ALLEN / [place]) - YEARLY RECHECK B/L KNEES / (L) HIP S/P TOTAL JOINT REPLACEMENTS / (R) SHOULDER REVERSE TSA (R) KNEE - YEARLY RECHECK S/P (R) TKA 05/18/17 (~7 YRS, 4 MONTHS) XRAY TODAY, 09/15/24 IN [facility] XRAY 07/14/23, 07/15/22 IN [facility] DOING WELL. DENIES COMPLAINTS / PAIN. DENIES SWELLING. GOOD ROM / STRENGTH. WALKING WELL UNASSISTED. PLEASED WITH OUTCOME OF SURGERY. CONTINUES HEP. (L) KNEE - YEARLY RECHECK S/P (L) TKA 12/2011 (~12 YRS, 9 MONTHS) XRAY TODAY, 09/15/24 IN [facility] XRAY 09/02/22 IN [facility] DOING WELL. DENIES COMPLAINTS / PAIN. DENIES SWELLING. GOOD ROM / STRENGTH. WALKING WELL UNASSISTED. PLEASED WITH OUTCOME OF SURGERY. (L) HIP - YEARLY RECHECK S/P (L) JOSÉ 07/02/2010 (~14 YRS, 2.5 MONTHS) XRAY TODAY, 09/15/24 IN [facility] XRAY 07/07/23, 07/08/22 IN [facility] INTERMITTENT POSTERIOR DISCOMFORT WITH PROLONGED AMBULATION / PIVOTING. ADMITS KNEE TO ANKLE DISCOMFORT WITH HIP DISCOMFORT. GOOD ROM. DENIES SWELLING. ADMITS LEG FEELS LATERALLY ROTATED. DENIES STIFFNESS. OCCASIONAL WEAKNESS. IBU PRN. DENIES ICING / HEATING. DENIES TOPICALS. (R) SHOULDER - YEARLY RECHECK (R) SHOULDER REVERSE TSA 10/05/23 (~1 YR, 2 WKS) (DR. ALLEN) XRAY TODAY, 09/15/24 IN [facility] XRAY 03/14/24, 11/10/23 IN [facility] DOING WELL. DENIES PAIN. PLEASED WITH OUTCOME OF SURGERY. DENIES N/T. GOOD STRENGTH / ROM. Hip Musculoskeletal Exam Gait Gait is normal. Inspection Leg length disparity: no discrepancy Left Erythema: none Ecchymosis: none Edema: none Deformity: none Previous incision: anterolateral Incision: well-healed Palpation Left Left hip palpation is normal. Increased warmth: none Tenderness: none Range of Motion Left Left hip range of motion is within functional limits. Active ROM: normal and no pain. Passive ROM: normal and no pain. Strength Left Left hip strength is normal. Extension: 5/5. Flexion: 5/5. Internal rotation: 5/5. External rotation: 5/5. Adduction: 5/5. Abduction: 5/5. Neurovascular Right Pulses - PT: normal Posterior tibial: 2+ Left Left hip neurovascular exam is normal. Pulses - PT: normal Posterior tibial: 2+ General Constitutional: appears stated age Labored breathing: no Psychiatric: normal mood and affect Neurological: alert and oriented x3 Skin: intact Lymphadenopathy: none Knee Musculoskeletal Exam Gait Gait is normal. Inspection Leg length disparity: no discrepancy Right Erythema: none Effusion: none Edema: none Ecchymosis: none Deformity: none Alignment: normal Previous incision: anterior Incision: well-healed Left Erythema: none Effusion: none Edema: none Ecchymosis: none Deformity: none Alignment: normal Previous incision: anterior Incision: well-healed Palpation Right Right knee palpation is unremarkable. Increased warmth: none Masses: none Tenderness: none Left Left knee palpation is unremarkable. Increased warmth: none Masses: none Tenderness: none Range of Motion Right Right knee range of motion is normal and full. Left Left knee range of motion is normal and full. Strength Right Right knee strength is normal. Extension: 5/5. Flexion: 5/5. Left Left knee strength is normal. Extension: 5/5. Flexion: 5/5. Instability Right Instability signs: none - stable Varus stress grade: normal Valgus stress grade: normal Left Instability signs: none - stable Varus stress grade: normal Valgus stress grade: normal Neurovascular Right Right knee neurovascular exam is normal. Pulses - PT: normal Posterior tibial: 2+ Capillary refill: warm and well-perfused Left Left knee neurovascular exam is normal. Pulses - PT: normal Posterior tibial: 2+ Capillary refill: warm and well-perfused Special Signs Right Right knee special signs are normal. Left Left knee special signs are normal. General Constitutional: appears stated age Labored breathing: no Psychiatric: normal mood and affect Neurological: alert and oriented x3 Skin: intact Lymphadenopathy: none Shoulder Musculoskeletal Exam Inspection Right Right shoulder inspection is normal. Ecchymosis: none Peripheral edema: none Atrophy: none Masses: none Prior incision: anterolateral Incision: well-healed Palpation Right Right shoulder palpation is normal. Crepitus: no crepitus Increased warmth: none Tenderness: none Range of Motion Right Right shoulder range of motion is normal. Active ROM: normal and no pain. Passive ROM: normal and no pain. Active forward elevation: 140. Passive forward elevation: 160. Shoulder active abduction: 140. Passive abduction: 160. Active external rotation at side: 70. Passive external rotation at side: 70. Active internal rotation in abduction: 90. Passive internal rotation in abduction: 90. Strength Right External rotation: 5/5. Internal rotation: 5/5. Abduction: 5/5. Biceps: 5/5. Triceps: 5/5. Neurovascular Right Radial pulse: normal and 2+ Capillary refill: <3 sec Axillary nerve sensory distribution: normal Scapula Right Right shoulder scapula is normal. Position: normal Winging: none Special Tests Right Biceps/sandy Signs Clicking/popping: negative AC Joint Signs Single finger test: negative General Constitutional: appears stated age Labored breathing: no Psychiatric: normal mood and affect Neurological: alert and oriented x3 Skin: intact Lymphadenopathy: none Orders Placed This Encounter Procedures XR knee 1 or 2 views right Reason for exam:: Yearly Recheck XR knee 1 or 2 views left Reason for exam:: Yearly Recheck XR hip left 2 or 3 views Reason for exam:: Yearly Recheck XR shoulder 2+ views right Reason for exam:: Follow-up Procedures Results - Imaging: - X-rays show stable stability of her prosthesis without evidence of dislocation, fracture, or complication ICD-10-CM 1. Right knee pain, unspecified chronicity M25.561 2. Left hip pain M25.552 3. S/P total knee replacement, left Z96.652 XR knee 1 or 2 views left 4. Status post total right knee replacement Z96.651 XR knee 1 or 2 views right 5. Status post total hip replacement, left Z96.642 XR hip left 2 or 3 views 6. Left knee pain, unspecified chronicity M25.562 7. Right shoulder pain, unspecified chronicity M25.511 XR shoulder 2+ views right Assessment & Plan Follow-up yearly check of multiple joint replacements Bilateral knees and left total hip arthroplasty are all doing well. Right shoulder replacement has occasional stiffness but no significant pain. Ambulates well and denies any recent fever or illness. X-rays discussed at bedside show stable stability of her prosthesis without evidence of dislocation, fracture, or complication. Treatment plan: Patient education included the importance of monitoring for any changes in joint function or signs of infection. Encouraged to maintain regular physical activity to support joint health. No new interventions or medications required at this time. Patient expressed gratitude and denied any other concerns. Follow-up: 08/2026 PROCEDURE Procedure Performed Bilateral knee replacements, left total hip arthroplasty, and right shoulder replacement. Questions answered in laymen terms at the bedside. The diagnosis, home exercise plan and any ongoing restrictions/ recommendations reviewed. If unable to be reached in office, I recommend evaluation at nearest Emergency Room if any symptoms worsened or new symptoms develop for requiring urgent evaluation. Visit was preformed using [employer] aircraft pilot speech recognition. documented in this encounter [facility] 09-09-2024 Telephone encounter Note Danor sent 09/09/24 that [facility] will be out of the office and to call to r/s. [facility] 09-09-2024 Miscellaneous Notes Niels sent 09/09/24 that [facility] will be out of the office and to call to r/s. documented in this encounter [facility] 08-31-2024 Telephone encounter Note ALPRAZolam (Xanax) 0.25 MG tablet [facility] 08-31-2024 Miscellaneous Notes ALPRAZolam (Xanax) 0.25 MG tablet Maria Victoria oshea documented in this encounter [facility] 07-28-2024 History of Present illness Narrative Patient: Emile Childers : 1945 PCP: Aleida Putnam MD SUBJECTIVE This is a 79 y.o. female that presents today with a CC of elongated, thick nails. Pt states nails have been elongated and thick for many years and cause pain with ambulation in shoegear. Pt has tried previous treatment with minimal relief. Pt presents today for nail care and treatment. Patient is DM2 Pt also has history of venous stasis to b/l lower extremities. 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 This not due at this time. She just got a 90 day supply on 11/25. May fill when due., Disp: 180 tablet, Rfl: 0 atorvastatin (Lipitor) 40 MG tablet, TAKE 1 TABLET BY MOUTH IN THE MORNING, Disp: 90 tablet, Rfl: 3 Calcium Carbonate-Vit D-Min (Caltrate 600+D Plus Minerals) 600-800 MG-UNIT chewable tablet, every 12 (twelve) hours., Disp: , Rfl: esomeprazole (NexIUM) [address] capsule, 1 tab(s), Oral, Daily, 0 Refill(s), Disp: , Rfl: glucose blood (GNP True Metrix Glucose Strips) test strip, 1 each by Other route if needed (Use one strip to test blood sugar), Disp: 100 each, Rfl: 1 irbesartan (Avapro) 300 MG tablet, TAKE 1 TABLET BY MOUTH DAILY, Disp: 90 tablet, Rfl: 3 levothyroxine (Synthroid, Levoxyl) 200 MCG tablet, Take 1 tablet (200 mcg) by mouth in the morning. Take before meals., Disp: 100 tablet, Rfl: 4 Social History: Social History Socioeconomic History Marital status: Spouse name: Not on file Number of children: Not on file Years of education: Not on file Highest education level: Not on file Occupational History Occupation: retired Tobacco Use Smoking status: Never Smokeless tobacco: Never Vaping Use Vaping status: Unknown Substance and Sexual Activity Alcohol use: Never Comment: caffeine intake: 1-2 cups per day soda,,,caffeine yes type:chocolate Drug use: Never Sexual activity: Defer Other Topics Concern Not on file Social History Narrative Daily exercise Social Drivers of Health Financial Resource Strain: Not on file Food Insecurity: Not on file Transportation Needs: Not on file Physical Activity: Not on file Stress: Not on file Social Connections: Not on file Intimate Partner Violence: Not on file Housing Stability: Not on file ROS: General: denies fever, chills, fatigue, malaise OBJECTIVE LE EXAM: DERM: Elongated thick yellow crumbly nails digits 1 through 10. Negative hair growth with thin shiny atrophic skin bilaterally. Plus one pitting edema to bilateral ankles Negative maceration or peeling between toes of feet or mid arch foot VASC: Positive DP and negative PT pedal pulses NEURO: 5.07 [place] Andrea monofilament test diminished to digits and forefoot bilaterally 125Hz tuning fork diminished to 1st MPJ bilaterally ORTHO: Positive pain on palpation to toenails of the left 1,2,3,4,5 toes and right 1,2,3,4,5 toes ASSESSMENT 1. Type 2 diabetes mellitus without complication, without long-term current use of insulin 2. Pain due to onychomycosis of toenails of both feet 3. Venous insufficiency PLAN Discussed proper foot care with patient today. Debride nails in length and thickness digits 1 through 10 Patient educated today on proper diabetic foot care including monitoring feet daily for any signs of infection openings in the skin or irregularities to both feet. Patient had a diabetic neurological exam today to both their feet and discussed proper shoe gear. Bj Tavares DPM documented in this encounter [facility] 06-16-2024 Telephone encounter Note Pt notified [facility] 06-16-2024 Miscellaneous Notes Pt notified Her is TSH low and Free T4 is elevated. Reduce Levothyroxine by not take meds on Thursday and recheck in 3 months TSH and reflex Lm to cb documented in this encounter [facility] 06-16-2024 Telephone encounter Note Her is TSH low and Free T4 is elevated. Reduce Levothyroxine by not take meds on Thursday and recheck in 3 months TSH and reflex Lm to cb [facility] 06-07-2024 History of Present illness Narrative Associated Problem(s): HTN (hypertension) ([facility]) Our specific goals, for your hypertension, is to keep your blood pressure less than 140/90, and the importance of weight control. We made recommendations on how to control your blood pressure, and minimize your risk of these copmplications. We also discussed your current barriers to a healthy living and importance of healthy diet and exercise. Prior to your visit today we have reviewed your chart and formed a plan to assist with providing you the best possible care. We reviewed the possible complications of hypertension including, stroke, heart failure and kidney impairment. In addition, we discussed your medications, the importance of taking them as prescribed. DASH diet handouts Associated Problem(s): Medicare annual wellness visit, subsequent Colonoscopy every 10 years or Cologuard every 3 years ages 50-75 Flu Vaccine yearly Pneumovax and Prevnar Mammo yearly for women and PSA yearly for men Labs/Screening yearly to rule out Diabetes, Chronic Kidney disease and liver disease Hepatitis Screen forat risk populations Shingles vaccine after 65 if indicated Tetanus Vaccine every 10 years Lipids yearly under the age of 75 If Smoking history: one time CT scan of chest and Ultrasound of Aorta to screen for Anuerysm Associated Problem(s): Type 2 diabetes mellitus without complication No Tobacco use Follow ADA 1800 diet low carbohydrate Continue Med Compliance Goal LDL less than 100 Goal BP 130/80 Goal HgbA1c < 7.0% Monitor Feet, monitor for infection Needs Exercise Yearly eye exams Prior to your visit today we reviewed your chart and outlined testing and treatment needed for your care. Reviewed poissble complications of diabetes including, loss of vision, kidney failure and increased risk of heart attacks and stroke. We made recommendations on how to control your blood sugars, and minimize your risk of these complications. We discussed your current barriers to a healthy living and importance of healthy diet and exercise. Images from the original note were not included. Subjective : Chief Complaint: Emile Childers is an 79 y.o. female here for an annual wellness visit. I have reviewed and reconciled the history and medication list with the patient today. Current Outpatient Medications Medication Sig Dispense Refill ALPRAZolam (Xanax) 0.25 MG tablet Take 1 tablet (0.25 mg) by mouth in the morning and 1 tablet (0.25 mg) before bedtime. This not due at this time. She just got a 90 day supply on 11/25. May fill when due. 180 tablet 0 atorvastatin (Lipitor) 40 MG tablet TAKE 1 TABLET BY MOUTH IN THE MORNING 90 tablet 3 Calcium Carbonate-Vit D-Min (Caltrate 600+D Plus Minerals) 600-800 MG-UNIT chewable tablet every 12 (twelve) hours. esomeprazole (NexIUM) [address] capsule 1 tab(s), Oral, Daily, 0 Refill(s) glucose blood (GNP True Metrix Glucose Strips) test strip 1 each by Other route if needed (Use one strip to test blood sugar) 100 each 1 irbesartan (Avapro) 300 MG tablet TAKE 1 TABLET BY MOUTH DAILY 90 tablet 3 levothyroxine (Synthroid, Levoxyl) 200 MCG tablet Take 1 tablet (200 mcg) by mouth in the morning. Take before meals. 100 tablet 4 No current facility-administered medications for this visit. Review of Systems Constitutional: Negative for chills, fatigue, fever and unexpected weight change. Respiratory: Negative for cough. Cardiovascular: Negative for chest pain. Gastrointestinal: Negative for abdominal pain, blood in stool, constipation, diarrhea, nausea and vomiting. Genitourinary: Negative for dysuria, enuresis, frequency and hematuria. Musculoskeletal: Negative for back pain. Neurological: Negative for dizziness, tremors, syncope, facial asymmetry and speech difficulty. Psychiatric/Behavioral: Negative for agitation, behavioral problems, confusion and dysphoric mood. The patient is not nervous/anxious. List of current healthcare providers: Patient Care Team: Aleida Putnam MD as PCP - General (Family Medicine) Medicare Annual Visit Over the past 2 weeks, how often have you been bothered by any of the following problems? Little interest or pleasure in doing things: Not at all Feeling down, depressed, or hopeless: Not at all Patient Health Questionnaire-2 Score: 0 Riley Fall Risk History of Falling, Immediate or Within 3 Months: No Health Risk Assessment Form Do you need help eating, bathing, using the toilet, dressing, or getting around your home?: No Can you prepare your own meals?: Yes Can you do your own housework without help?: Yes Can you shop for groceries or clothes without help?: Yes Do you exercise for about 20 minutes 3 or more days a week?: Yes How confident are you that you can control and manage most of your health problems?: Very confident Can you mange your money, credit cards and accounts, pay bills and taxes?: Yes Vision Screening: Yes, no gross abnormalities Hearing Screening: Yes, no gross abnormalities Cognitive Screening Self Assessment: No overt cognitive deficiency is apparent by direct observation Three Word Registration: Leader, Season, Table Clock Drawing: Normal Clock - 2 Three Word Recall: All 3 words correct - 3 Total Score (0-5 Points): 5 Pain Assessment Pain Score: 0 - No pain Advance Care Planning Do you have a living will?: No Do you have a medical power of civil litigation attorney?: No Objective : BP 100/62 Pulse 77 Ht 5' 3 Wt 210 lb SpO2 98% BMI 37.20 kg/m No results found. Physical Exam Constitutional: General: She is not in acute distress. Appearance: Normal appearance. HENT: Head: Normocephalic. Neck: Vascular: No carotid bruit. Cardiovascular: Rate and Rhythm: Normal rate and regular rhythm. Pulmonary: Effort: Pulmonary effort is normal. No respiratory distress. Breath sounds: Normal breath sounds. Neurological: General: No focal deficit present. Mental Status: She is alert and oriented to person, place, and time. Psychiatric: Mood and Affect: Mood normal. Office Visit on 06/07/2024 Component Date Value Ref Range Status Hemoglobin A1C 06/07/2024 5.8 Final Assessment/Plan : The following health maintenance schedule was reviewed with the patient and provided in printed form in the after visit summary: Health Maintenance Topic Date Due Diabetes: Retinopathy Screening 12/06/2022 Medicare Annual Wellness (AWV) 06/01/2024 Diabetes: Urine Protein Screening 06/08/2024 Diabetes: Hemoglobin A1C 09/06/2024 Influenza Vaccine Completed Pneumococcal Vaccine: 65+ Years Completed Advance Care Planning Patient willing to discuss ACP. If in place, renew periodically. If not in place, recommend obtaining ACP. Assessment/Plan Problem List Items Addressed This Visit Acquired hypothyroidism (CMS/HCC) Relevant Orders CBC and differential Comprehensive metabolic panel TSH W/REFLEX TO FT4 Pure hypercholesterolemia (CMS/HCC) Relevant Orders CBC and differential Comprehensive metabolic panel Lipid panel Type 2 diabetes mellitus without complication No Tobacco use Follow ADA 1800 diet low carbohydrate Continue Med Compliance Goal LDL less than 100 Goal BP 130/80 Goal HgbA1c < 7.0% Monitor Feet, monitor for infection Needs Exercise Yearly eye exams Prior to your visit today we reviewed your chart and outlined testing and treatment needed for your care. Reviewed poissble complications of diabetes including, loss of vision, kidney failure and increased risk of heart attacks and stroke. We made recommendations on how to control your blood sugars, and minimize your risk of these complications. We discussed your current barriers to a healthy living and importance of healthy diet and exercise. Relevant Orders CBC and differential Comprehensive metabolic panel Microalbumin / creatinine urine ratio POCT Glycated hemoglobin, total (Completed) Medicare annual wellness visit, subsequent Colonoscopy every 10 years or Cologuard every 3 years ages 50-75 Flu Vaccine yearly Pneumovax and Prevnar Mammo yearly for women and PSA yearly for men Labs/Screening yearly to rule out Diabetes, Chronic Kidney disease and liver disease Hepatitis Screen forat risk populations Shingles vaccine after 65 if indicated Tetanus Vaccine every 10 years Lipids yearly under the age of 75 If Smoking history: one time CT scan of chest and Ultrasound of Aorta to screen for Anuerysm Relevant Orders CBC and differential Comprehensive metabolic panel Lipid panel Microalbumin / creatinine urine ratio TSH W/REFLEX TO FT4 HTN (hypertension) (CMS/HCC) Our specific goals, for your hypertension, is to keep your blood pressure less than 140/90, and the importance of weight control. We made recommendations on how to control your blood pressure, and minimize your risk of these copmplications. We also discussed your current barriers to a healthy living and importance of healthy diet and exercise. Prior to your visit today we have reviewed your chart and formed a plan to assist with providing you the best possible care. We reviewed the possible complications of hypertension including, stroke, heart failure and kidney impairment. In addition, we discussed your medications, the importance of taking them as prescribed. DASH diet handouts Other Visit Diagnoses Routine general medical examination at health care facility - Primary Benign essential hypertension (CMS/HCC) Relevant Orders CBC and differential Comprehensive metabolic panel Orders Placed This Encounter Procedures CBC and differential Standing Status: Future Number of Occurrences: 1 Expected Date: 06/07/2024 Expiration Date: 06/07/2025 Print requisition?: No Comprehensive metabolic panel Standing Status: Future Number of Occurrences: 1 Expected Date: 06/07/2024 Expiration Date: 06/07/2025 Print requisition?: No Lipid panel Standing Status: Future Number of Occurrences: 1 Expected Date: 06/07/2024 Expiration Date: 06/07/2025 Microalbumin / creatinine urine ratio Standing Status: Future Number of Occurrences: 1 Expected Date: 06/07/2024 Expiration Date: 06/07/2025 Print requisition?: No TSH W/REFLEX TO FT4 Standing Status: Future Number of Occurrences: 1 Expected Date: 06/07/2024 Expiration Date: 06/07/2025 Print requisition?: No POCT Glycated hemoglobin, total Electronically signed by Aleida Putnam MD on June 07, 2024 documented in this encounter [facility] 03-14-2024 History of Present illness Narrative Images from the original note were not included. HISTORY OF PRESENT ILLNESS: Emile Childers is an 79 y.o. @ female. Follow up RT TSA RT shoulder: 5 months s/p RT reverse TSA (10/05/23). Denies pain. No pain meds. Denies N/T. Denies any issues. States she only had some pain after shoveling. Pleased with outcome. MEDICATION: Current Outpatient Medications on File Prior to Visit Medication Sig Dispense Refill ALPRAZolam (Xanax) 0.25 MG tablet Take 1 tablet (0.25 mg) by mouth in the morning and 1 tablet (0.25 mg) before bedtime. This not due at this time. She just got a 90 day supply on 11/25. May fill when due. 180 tablet 0 amoxicillin (Amoxil) 500 MG capsule 2,000 mg if needed atorvastatin (Lipitor) 40 MG tablet TAKE 1 TABLET BY MOUTH IN THE MORNING 90 tablet 3 Calcium Carbonate-Vit D-Min (Caltrate 600+D Plus Minerals) 600-800 MG-UNIT chewable tablet every 12 (twelve) hours. esomeprazole (NexIUM) [address] capsule 1 tab(s), Oral, Daily, 0 Refill(s) glucose blood ([facility] True Metrix Glucose Strips) test strip 1 each by Other route if needed (Use one strip to test blood sugar) 100 each 1 irbesartan (Avapro) 300 MG tablet TAKE 1 TABLET BY MOUTH DAILY 90 tablet 3 levothyroxine (Synthroid, Levoxyl) 200 MCG tablet Take 1 tablet (200 mcg) by mouth in the morning. Take before meals. 100 tablet 4 No current facility-administered medications on file prior to visit. 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 Cataract Chicken pox Diabetes type 2, controlled (CMS/HCC) Hyperlipidemia (CMS/[facility]) Hypertension ([facility]) Macular degeneration Measles Mumps No intracranial Hemorrhage or CT evidence of acute ischemia 09/12/2020 Osteoarthritis 2012 Screening 2013 Thyroid disease ([facility]) Type 2 diabetes mellitus ([facility]) ALLERGIES: Allergies Allergen Reactions Morphine GI intolerance VITALS: Visit Vitals OB Status Postmenopausal Smoking Status Never PHYSICAL EXAM: Ortho Exam RIGHT SHOULDER 110 abduction/100 forward flexion, ER equal bilaterally, IR equal bilaterally XR shoulder 2+ views right Imaging Result Multiple views of right shoulder showed reverse arthroplasty to be in appropriate position and alignment. There was no gross evidence of loosening to the glenoid sphere or humeral component. Overall anatomic alignment appeared to be preserved. Impression: No acute bony process reverse arthroplasty, right shoulder ASSESSMENT: ICD-10-CM 1. 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 Arthritis of right shoulder region M19.011 XR shoulder 2+ views right I explained the diagnosis and reviewed treatment options. I answered all of the patient's questions. Follow up in 6 months with xrays, any issues/concerns follow up sooner. documented in this encounter [facility] 03-10-2024 History of Present illness Narrative Patient: Emile Childers : 1945 PCP: Aleida Putnam MD SUBJECTIVE This is a 79 y.o. female that presents today with a CC of elongated, thick nails. Pt states nails have been elongated and thick for many years and cause pain with ambulation in shoegear. Pt has tried previous treatment with minimal relief. Pt presents today for nail care and treatment. Patient is DM2 Pt also has history of venous stasis to b/l lower extremities. 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 Cataract Chicken pox Diabetes type 2, controlled ([facility]) Hyperlipidemia ([facility]) Hypertension ([facility]) Macular degeneration Measles Mumps No intracranial Hemorrhage or CT evidence of acute ischemia 09/12/2020 Osteoarthritis 2012 Screening 2013 Thyroid disease ([facility]) Type 2 diabetes mellitus ([facility]) Medications: Current Outpatient Medications: ALPRAZolam (Xanax) 0.25 MG tablet, Take 1 tablet (0.25 mg) by mouth in the morning and 1 tablet (0.25 mg) before bedtime. This not due at this time. She just got a 90 day supply on 11/25. May fill when due., Disp: 180 tablet, Rfl: 0 amoxicillin (Amoxil) 500 MG capsule, 2,000 mg if needed, Disp: , Rfl: atorvastatin (Lipitor) 40 MG tablet, TAKE 1 TABLET BY MOUTH IN THE MORNING, Disp: 90 tablet, Rfl: 3 Calcium Carbonate-Vit D-Min (Caltrate 600+D Plus Minerals) 600-800 MG-UNIT chewable tablet, every 12 (twelve) hours., Disp: , Rfl: esomeprazole (NexIUM) [address] capsule, 1 tab(s), Oral, Daily, 0 Refill(s), Disp: , Rfl: glucose blood (GNP True Metrix Glucose Strips) test strip, 1 each by Other route if needed (Use one strip to test blood sugar), Disp: 100 each, Rfl: 1 irbesartan (Avapro) 300 MG tablet, TAKE 1 TABLET BY MOUTH DAILY, Disp: 90 tablet, Rfl: 3 levothyroxine (Synthroid, Levoxyl) 200 MCG tablet, Take 1 tablet (200 mcg) by mouth in the morning. Take before meals., Disp: 100 tablet, Rfl: 4 Social History: Social History Socioeconomic History Marital status: Spouse name: Not on file Number of children: Not on file Years of education: Not on file Highest education level: Not on file Occupational History Occupation: retired Tobacco Use Smoking status: Never Smokeless tobacco: Never Vaping Use Vaping status: Unknown Substance and Sexual Activity Alcohol use: Never Comment: caffeine intake: 1-2 cups per day soda,,,caffeine yes type:chocolate Drug use: Never Sexual activity: Defer Other Topics Concern Not on file Social History Narrative Daily exercise Social Drivers of Health Financial Resource Strain: Not on file Food Insecurity: Not on file Transportation Needs: Not on file Physical Activity: Not on file Stress: Not on file Social Connections: Not on file Intimate Partner Violence: Not on file Housing Stability: Not on file ROS: General: denies fever, chills, fatigue, malaise OBJECTIVE LE EXAM: DERM: Elongated thick yellow crumbly nails digits 1 through 10. Negative hair growth with thin shiny atrophic skin bilaterally. Plus one pitting edema to bilateral ankles Negative maceration or peeling between toes of feet or mid arch foot VASC: Positive DP and negative PT pedal pulses NEURO: 5.07 [place] Andrea monofilament test diminished to digits and forefoot bilaterally 125Hz tuning fork diminished to 1st MPJ bilaterally ORTHO: Positive pain on palpation to nails 1 through 10 ASSESSMENT 1. Type 2 diabetes mellitus without complication, without long-term current use of insulin ([facility]) 2. Pain due to onychomycosis of toenails of both feet 3. Venous insufficiency PLAN Discussed proper foot care with patient today. Debride nails in length and thickness digits 1 through 10 Patient educated today on proper diabetic foot care including monitoring feet daily for any signs of infection openings in the skin or irregularities to both feet. Patient had a diabetic neurological exam today to both their feet and discussed proper shoe gear. Bj Tavares DPM documented in this encounter [facility] 12-31-2023 History of Present illness Narrative Patient: Emile Childers : 1945 PCP: Aleida Putnam MD SUBJECTIVE This is a 78 y.o. female that presents today with a CC of elongated, thick nails. Pt states nails have been elongated and thick for many years and cause pain with ambulation in shoegear. Pt has tried previous treatment with minimal relief. Pt presents today for nail care and treatment. Patient is DM2 Pt also has history of venous stasis to b/l lower extremities. 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 Cataract Chicken pox Diabetes type 2, controlled ([facility]) Hyperlipidemia ([facility]) Hypertension ([facility]) Macular degeneration Measles Mumps No intracranial Hemorrhage or CT evidence of acute ischemia 09/12/2020 Osteoarthritis 2012 Screening 2014 Thyroid disease ([facility]) Type 2 diabetes mellitus ([facility]) Medications: Current Outpatient Medications: ALPRAZolam (Xanax) 0.25 MG tablet, Take 1 tablet (0.25 mg) by mouth in the morning and 1 tablet (0.25 mg) before bedtime. This not due at this time. She just got a 90 day supply on 11/25. May fill when due., Disp: 180 tablet, Rfl: 0 amoxicillin (Amoxil) 500 MG capsule, 2,000 mg if needed, Disp: , Rfl: atorvastatin (Lipitor) 40 MG tablet, TAKE 1 TABLET BY MOUTH IN THE MORNING, Disp: 90 tablet, Rfl: 3 Calcium Carbonate-Vit D-Min (Caltrate 600+D Plus Minerals) 600-800 MG-UNIT chewable tablet, every 12 (twelve) hours., Disp: , Rfl: esomeprazole (NexIUM) [address] capsule, 1 tab(s), Oral, Daily, 0 Refill(s), Disp: , Rfl: glucose blood (GNP True Metrix Glucose Strips) test strip, 1 each by Other route if needed (Use one strip to test blood sugar), Disp: 100 each, Rfl: 1 irbesartan (Avapro) 300 MG tablet, TAKE 1 TABLET BY MOUTH DAILY, Disp: 90 tablet, Rfl: 3 levothyroxine (Synthroid, Levoxyl) 200 MCG tablet, Take 1 tablet (200 mcg) by mouth in the morning. Take before meals., Disp: 100 tablet, Rfl: 4 Social History: Social History Socioeconomic History Marital status: Spouse name: Not on file Number of children: Not on file Years of education: Not on file Highest education level: Not on file Occupational History Occupation: retired Tobacco Use Smoking status: Never Smokeless tobacco: Never Vaping Use Vaping status: Unknown Substance and Sexual Activity Alcohol use: Never Comment: caffeine intake: 1-2 cups per day soda,,,caffeine yes type:chocolate Drug use: Never Sexual activity: Defer Other Topics Concern Not on file Social History Narrative Daily exercise Social Drivers of Health Financial Resource Strain: Not on file Food Insecurity: Not on file Transportation Needs: Not on file Physical Activity: Not on file Stress: Not on file Social Connections: Not on file Intimate Partner Violence: Not on file Housing Stability: Not on file ROS: General: denies fever, chills, fatigue, malaise OBJECTIVE LE EXAM: DERM: Elongated thick yellow crumbly nails digits 1 through 10. Negative hair growth with thin shiny atrophic skin bilaterally. Plus one pitting edema to bilateral ankles Negative maceration or peeling between toes of feet or mid arch foot VASC: Positive DP and negative PT pedal pulses NEURO: 5.07 [place] Andrea monofilament test diminished to digits and forefoot bilaterally 125Hz tuning fork diminished to 1st MPJ bilaterally ORTHO: Positive pain on palpation to nails 1 through 10 ASSESSMENT 1. Type 2 diabetes mellitus without complication, without long-term current use of insulin ([facility]) 2. Pain due to onychomycosis of toenails of both feet 3. Venous insufficiency PLAN Discussed proper foot care with patient today. Debride nails in length and thickness digits 1 through 10 Patient educated today on proper diabetic foot care including monitoring feet daily for any signs of infection openings in the skin or irregularities to both feet. Patient had a diabetic neurological exam today to both their feet and discussed proper shoe gear. Bj Tavares DPM documented in this encounter [facility] 12-22-2023 History of Present illness Narrative Images from the original note were not included. HISTORY OF PRESENT ILLNESS: Emile Childers is an 78 y.o. @ female. Follow up RT TSA RT shoulder: 11 weeks s/p RT reverse TSA (10/05/23). She is doing well. Denies pain, she would like some more ROM. Denies pain at HS. Incision well healed. Selling has resolved. Pt is pleased with outcome so far. MEDICATION: Current Outpatient Medications on File Prior to Visit Medication Sig Dispense Refill ALPRAZolam (Xanax) 0.25 MG tablet Take 1 tablet (0.25 mg) by mouth in the morning and 1 tablet (0.25 mg) before bedtime. This not due at this time. She just got a 90 day supply on 11/25. May fill when due. 180 tablet 0 amoxicillin (Amoxil) 500 MG capsule 2,000 mg if needed atorvastatin (Lipitor) 40 MG tablet TAKE 1 TABLET BY MOUTH IN THE MORNING 90 tablet 3 Calcium Carbonate-Vit D-Min (Caltrate 600+D Plus Minerals) 600-800 MG-UNIT chewable tablet every 12 (twelve) hours. esomeprazole (NexIUM) [address] capsule 1 tab(s), Oral, Daily, 0 Refill(s) glucose blood (GNP True Metrix Glucose Strips) test strip 1 each by Other route if needed (Use one strip to test blood sugar) 100 each 1 irbesartan (Avapro) 300 MG tablet TAKE 1 TABLET BY MOUTH DAILY 90 tablet 3 levothyroxine (Synthroid, Levoxyl) 200 MCG tablet Take 1 tablet (200 mcg) by mouth in the morning. Take before meals. 100 tablet 4 No current facility-administered medications on file prior to visit. 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 Cataract Chicken pox Diabetes type 2, controlled ([facility]) Hyperlipidemia ([facility]/HCC) Hypertension ([facility]/HCC) Macular degeneration Measles Mumps No intracranial Hemorrhage or CT evidence of acute ischemia 09/12/2020 Osteoarthritis 2012 Screening 2013 Thyroid disease (CMS/HCC) Type 2 diabetes mellitus (CMS/[facility]) ALLERGIES: Allergies Allergen Reactions Morphine GI intolerance VITALS: Visit Vitals OB Status Postmenopausal Smoking Status Never PHYSICAL EXAM: Ortho Exam RIGHT SHOULDER Able to touch top of head abduction/flex greater than 90 IR to buttocks ASSESSMENT: ICD-10-CM 1. S/P reverse total shoulder arthroplasty, right Z96.611 PLAN: I explained the diagnosis and reviewed treatment options. I answered all of the patient's questions. Follow up in 3 months with xrays, any issues/concerns follow up sooner. Dr. Allen obtained history and examined the patient, I am acting as scribe for Dr. Allen/harry I did advise the patient that I am leaving my current practice to practice in another state but my colleagues are willing to see her if she has any problems or concerns or if she desires a referral to another environmental remediation specialist we would be happy to make referral, she states she would like to continue her care here. She would like to have her Left shoulder done eventually and gave Dr Wang info to her. Jame Allen D.O. documented in this encounter [facility] 11-25-2023 History of Present illness Narrative Images from the original note were not included. Tio D Brennan, DO Obstetrics and Gynecology Emile Childers 1945 11/25/23 [id number] Yearly Wellness Exam Chief Complaint Patient presents with Gynecologic Exam Medicare yearly. LMP: 1999 HRT: None Last pap 11-04-21 neg. Last mammogram 04-17-23 [facility] [place]. Denies breast, urinary, or bowel concerns. Visit Vitals BP 126/72 Ht 5' 3 Wt 216 lb BMI 38.26 kg/m OB Status Postmenopausal Smoking Status Never BSA 2.09 m OB History Para Term AB Living 4 4 4 SAB IAB Ectopic Multiple Live Births 4 # Outcome Date GA Lbr Leonidas/2nd Weight Sex Type Anes PTL Lv 4 Para Vag-Spont CODY 3 Para Vag-Spont CODY 2 Para Vag-Spont CODY 1 Para Vag-Spont CODY Obstetric Comments Heaviest weighed 10 lbs 8 oz Current Outpatient Medications Medication Sig Dispense Refill amoxicillin (Amoxil) 500 MG capsule 2,000 mg if needed esomeprazole (NexIUM) [address] capsule 1 tab(s), Oral, Daily, 0 Refill(s) ALPRAZolam (Xanax) 0.25 MG tablet Take 1 tablet (0.25 mg) by mouth in the morning and 1 tablet (0.25 mg) before bedtime. This not due at this time. She just got a 90 day supply on 11/25. May fill when due. 180 tablet 0 atorvastatin (Lipitor) 40 MG tablet TAKE 1 TABLET BY MOUTH IN THE MORNING 90 tablet 3 Calcium Carbonate-Vit D-Min (Caltrate 600+D Plus Minerals) 600-800 MG-UNIT chewable tablet every 12 (twelve) hours. glucose blood (P True Metrix Glucose Strips) test strip 1 each by Other route if needed (Use one strip to test blood sugar) 100 each 1 irbesartan (Avapro) 300 MG tablet TAKE 1 TABLET BY MOUTH DAILY 90 tablet 3 levothyroxine (Synthroid, Levoxyl) 200 MCG tablet Take 1 tablet (200 mcg) by mouth in the morning. Take before meals. 100 tablet 4 No current facility-administered medications for this visit. 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 Allergy: Denies medication reaction. Ocular: Denies visual acuity change. ENT: Denies hearing change. Endoc: Denies weight loss. Resp: Denies dyspnoea, wheezing. Cardiac: Denies angina, palpitations. GI: Denies nausea, vomiting. Haem: Denies bleeding. : Denies incontinence. MSK: Denies arthralgias, joint oedema. Derm: Denies rash, hair loss. Neuro: Denies ataxia, tremor. Also see HPI for elements of ROS documented therein and for details of positive findings, which shall supersede the foregoing. EXAM GENERAL EXAMINATION alert oriented well developed, well nourished. HEAD: normocephalic atraumatic. EYES: sclera anicteric. EARS: no obvious hearing deficit. NECK/THYROID: neck supple no cervical lymphadenopathy no thyromegaly. LYMPH NODES: no axillary, supraclavicular or inguinal adenopathy. SKIN: warm and dry. HEART: regular rate and rhythm. LUNGS: clear to auscultation bilaterally. CHEST:axillary nodes grossly normal. BREASTS:no masses palpable bilaterally, normal nipples bilaterally - everted -fatty replaced - dense - well supported- axilla negative. ABDOMEN: soft, nontender, nondistended, no masses palpable. BACK: no costovertebral angle tenderness, no obvious scoliosis/kyphosis. FEMALE GENITOURINARY:compliance advisor in room -mild introital erythema, mild atrophic vaginal mucosa, nulip cervix absent of lesions, nontender, uterus AV small atrophic, mobile, ovaries nonpalpable and nontender, grade 1 pelvic prolapse, cul de sac and adnexa negative RECTAL:normal tone , no masses palpable , only small external hemorrhoids. EXTREMITIES no edema. NEUROLOGIC: alert and oriented. PSYCH: cooperative with exam. ICD-10-CM 1. Encounter for gynecological examination without abnormal finding Z01.419 Pelvic and breast exam completed. Findings of today's exam discussed with the patient. Continue MSBE. Ca/Vit D recommendations reviewed with the patient. The patient is to contact the office with any changes to her gynecological condition or any changes with breast or bleeding. The patient is to return in 1 year or as needed 2. Encounter for Papanicolaou smear of cervix Z12.4 SENDOUT TEST MISCELLANEOUS [facility] Thinprep collected. Will notify patient if results are abnormal. 3. Breast cancer screening by mammogram Z12.31 Bilateral screening mammogram with tomosynthesis Screening mammogram ordered. Patient to call and schedule. Entered by Kaylen Hernandez MA acting as scribe for Dr. Tio Elizabeth. Signature Kaylen Hernandez MA Date 11/25/23 . Time 2:14 PM . The documentation recorded by the scribe accurately reflects the service(s) I personally performed and the decisions I made. Signature Anne Elizabeth D.O. Date 11/25/23 Time 5:00PM. documented in this encounter [facility] 11-10-2023 History of Present illness Narrative Images from the original note were not included. HISTORY OF PRESENT ILLNESS: Emile Childers is an 78 y.o. @ female. Follow up RT rev TSA RT shoulder: 5 weeks s/p RT reverse TSA (10/05/23). She is going well. Taking oxy q8hrs. Pain today 0/10, can go to 5-6/10 without the pain meds. Using ice. Incision well healed. Admits swelling in arm, wrist and hand. MEDICATION: Current Outpatient Medications on File Prior to Visit Medication Sig Dispense Refill ALPRAZolam (Xanax) 0.25 MG tablet Take 1 tablet (0.25 mg) by mouth in the morning and 1 tablet (0.25 mg) before bedtime. This not due at this time. She just got a 90 day supply on 11/25. May fill when due. 180 tablet 0 atorvastatin (Lipitor) 40 MG tablet TAKE 1 TABLET BY MOUTH IN THE MORNING 90 tablet 3 Calcium Carbonate-Vit D-Min (Caltrate 600+D Plus Minerals) 600-800 MG-UNIT chewable tablet every 12 (twelve) hours. glucose blood (P True Metrix Glucose Strips) test strip 1 each by Other route if needed (Use one strip to test blood sugar) 100 each 1 irbesartan (Avapro) 300 MG tablet TAKE 1 TABLET BY MOUTH DAILY 90 tablet 3 levothyroxine (Synthroid, Levoxyl) 200 MCG tablet Take 1 tablet (200 mcg) by mouth in the morning. Take before meals. 100 tablet 4 [DISCONTINUED] levothyroxine (Synthroid, Levoxyl) 200 MCG tablet Take 1 tablet (200 mcg) by mouth in the morning. Take before meals. 100 tablet 4 No current facility-administered medications on file prior to visit. 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 Cataract Chicken pox Diabetes type 2, controlled ([facility]) Hx of colonoscopy 2013 Hyperlipemia ([facility]) Hyperlipidemia ([facility]) Hypertension ([facility]) Macular degeneration Measles Mumps No intracranial Hemorrhage or CT evidence of acute ischemia 09/12/2020 Osteoarthritis 2012 Screening 2014 Thyroid disease ([facility]) Type 2 diabetes mellitus ([facility]) ALLERGIES: Allergies Allergen Reactions Morphine GI intolerance VITALS: Visit Vitals OB Status Postmenopausal Smoking Status Never PHYSICAL EXAM: Ortho Exam Surgical scar is healing without signs of infection. It was trace ecchymosis distal incision. This appears to be resolving. Neurovascular is intact to the right upper extremity Active abduction is only 30 degrees flexion is 30 degrees. IMAGING: XR shoulder 2+ views right Imaging Result: November 10, 2023 x-rays AP and lateral of the right shoulder demonstrate reverse total shoulder replacement in good position alignment without signs of loosening or failure. Impression: Stable appearance of right reverse shoulder replacement Dylan Allen D.O. ASSESSMENT: ICD-10-CM 1. 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 Arthritis of right shoulder region M19.011 XR shoulder 2+ views right PLAN: Reviewed postoperative care with the patient and her . She should follow up in 6 weeks but follow up sooner if there is any questions or concerns. I explained the diagnosis and reviewed treatment options. I answered all of the patient's questions. Greg Gonzalezally signed by Arely Allen DO at 11/11/2023 2:14 PM EDT documented in this encounter [facility] 10-15-2023 History of Present illness Narrative Patient: Emile Childers : 1945 PCP: Aleida Putnam MD SUBJECTIVE This is a 78 y.o. female that presents today with a CC of elongated, thick nails. Pt states nails have been elongated and thick for many years and cause pain with ambulation in shoegear. Pt has tried previous treatment with minimal relief. Pt presents today for nail care and treatment. Patient is DM2 Pt also has history of venous stasis to b/l lower extremities. 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 This not due at this time. She just got a 90 day supply on 11/25. May fill when due., Disp: 180 tablet, Rfl: 0 atorvastatin (Lipitor) 40 MG tablet, TAKE 1 TABLET BY MOUTH IN THE MORNING, Disp: 90 tablet, Rfl: 3 Calcium Carbonate-Vit D-Min (Caltrate 600+D Plus Minerals) 600-800 MG-UNIT chewable tablet, every 12 (twelve) hours., Disp: , Rfl: glucose blood (GNP True Metrix Glucose Strips) test strip, 1 each by Other route if needed (Use one strip to test blood sugar), Disp: 100 each, Rfl: 1 irbesartan (Avapro) 300 MG tablet, TAKE 1 TABLET BY MOUTH DAILY, Disp: 90 tablet, Rfl: 3 levothyroxine (Synthroid, Levoxyl) 200 MCG tablet, Take 1 tablet (200 mcg) by mouth in the morning. Take before meals., Disp: 100 tablet, Rfl: 4 Social History: Social History Socioeconomic History Marital status: Spouse name: Not on file Number of children: Not on file Years of education: Not on file Highest education level: Not on file Occupational History Occupation: retired Tobacco Use Smoking status: Never Smokeless tobacco: Never Vaping Use Vaping status: Unknown Substance and Sexual Activity Alcohol use: Never Comment: caffeine intake: 1-2 cups per day soda,,,caffeine yes type:chocolate Drug use: Never Sexual activity: Defer Other Topics Concern Not on file Social History Narrative Daily exercise Social Determinants of Health Financial Resource Strain: Not on file Food Insecurity: Not on file Transportation Needs: Not on file Physical Activity: Not on file Stress: Not on file Social Connections: Not on file Intimate Partner Violence: Not on file Housing Stability: Not on file ROS: General: denies fever, chills, fatigue, malaise OBJECTIVE LE EXAM: DERM: Elongated thick yellow crumbly nails digits 1 through 10. Negative hair growth with thin shiny atrophic skin bilaterally. Plus one pitting edema to bilateral ankles Negative maceration or peeling between toes of feet or mid arch foot VASC: Positive DP and negative PT pedal pulses NEURO: 5.07 [place] Andrea monofilament test diminished to digits and forefoot bilaterally 125Hz tuning fork diminished to 1st MPJ bilaterally ORTHO: Positive pain on palpation to nails 1 through 10 ASSESSMENT 1. Type 2 diabetes mellitus without complication, without long-term current use of insulin ([facility]) 2. Onychomycosis 3. Toe pain, bilateral 4. Venous insufficiency PLAN Discussed proper foot care with patient today. Debride nails in length and thickness digits 1 through 10 Patient educated today on proper diabetic foot care including monitoring feet daily for any signs of infection openings in the skin or irregularities to both feet. Patient had a diabetic neurological exam today to both their feet and discussed proper shoe gear. Bj Tavares DPM documented in this encounter [facility] 10-13-2023 History of Present illness Narrative Images from the original note were not included. HISTORY OF PRESENT ILLNESS: Emile Childers is an 78 y.o. @ female. 1st po visit s/p RT Rev TSA RT shoulder: 1st po 8 days s/p RT reverse TSA (10/05/23). She is going well. Taking oxy q8hrs. Pain today 0/10, can go to 5-6/10 without the pain meds. Using ice. Steri strips intact, denies redness or drainage, keeps covered with abd. Admits swelling in arm, wrist and hand. Requesting refill of pain meds. MEDICATION: Current Outpatient Medications on File Prior to Visit Medication Sig Dispense Refill ALPRAZolam (Xanax) 0.25 MG tablet Take 1 tablet (0.25 mg) by mouth in the morning and 1 tablet (0.25 mg) before bedtime. This not due at this time. She just got a 90 day supply on 11/25. May fill when due. 180 tablet 0 atorvastatin (Lipitor) 40 MG tablet TAKE 1 TABLET BY MOUTH IN THE MORNING 90 tablet 3 Calcium Carbonate-Vit D-Min (Caltrate 600+D Plus Minerals) 600-800 MG-UNIT chewable tablet every 12 (twelve) hours. [] ferrous sulfate (Fe Tabs) 325 (65 Fe) MG EC tablet Take 1 tablet (325 mg) by mouth Daily Do not crush, chew, or split. 30 tablet 0 glucose blood (GNP True Metrix Glucose Strips) test strip 1 each by Other route if needed (Use one strip to test blood sugar) 100 each 1 irbesartan (Avapro) 300 MG tablet TAKE 1 TABLET BY MOUTH DAILY 90 tablet 3 levothyroxine (Synthroid, Levoxyl) 200 MCG tablet Take 1 tablet (200 mcg) by mouth in the morning. Take before meals. 100 tablet 4 [] oxyCODONE (Roxicodone) 5 MG immediate release tablet Take 1 tablet (5 mg) by mouth every 6 (six) hours if needed for moderate pain for up to 5 days 20 tablet 0 No current facility-administered medications on file prior to visit. 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 Cataract Chicken pox Diabetes type 2, controlled ([facility]) Hx of colonoscopy 2013 Hyperlipemia (CMS/[facility]) Hyperlipidemia (CMS/HCC) Hypertension ([facility]/HCC) Macular degeneration Measles Mumps No intracranial Hemorrhage or CT evidence of acute ischemia 09/12/2020 Osteoarthritis 2012 Screening 2014 Thyroid disease ([facility]) Type 2 diabetes mellitus ([facility]) ALLERGIES: Allergies Allergen Reactions Morphine GI intolerance VITALS: Visit Vitals OB Status Postmenopausal Smoking Status Never PHYSICAL EXAM: Ortho Exam RIGHT SHOULDER Swelling Bandage removed and incision healing nicely, steri strips intact, no drainage ASSESSMENT: ICD-10-CM 1. 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 Acute post-operative pain G89.18 traMADol (Ultram) 50 MG tablet PLAN: I reviewed surgical findings and disucssed plan of care. I recommend no lifting pushing or pulling at this time. I reviewed HEP and post op precausitons with patient. Patient verabalized understading. Questions answered in laymen terms at the bedside. If unable to be reached in office, I recommend evaluation at nearest Emergency Room if any symptoms worsened or new symptoms develop for requiring urgent evaluation. Follow up in one month with xrays, any issues/concerns follow up sooner. Dr. Allen obtained history and examined the patient, I am acting as scribe for Dr. Allen/harry Allen D.O. documented in this encounter [facility] 10-07-2023 Telephone encounter Note Spoke with patient and explained she may remove and shower per Dr Allen [facility] Work Phone: 10-07-2023 Miscellaneous Notes Spoke with patient and explained she may remove and shower per Dr Allen Spoke with Elias and explained that I will check with Dr Dotson and we will get back with him Elias called and left vm for and stated they have 2 different types of instructions after sx and would like call back at [phone] Pt had RT REV TSA 10/05/23 documented in this encounter [facility] 10-07-2023 Telephone encounter Note Spoke with Elias and explained that I will check with Dr Dotson and we will get back with him [facility] 10-07-2023 Telephone encounter Note Elias called and left vm for and stated they have 2 different types of instructions after sx and would like call back at [phone] Pt had RT REV TSA 10/05/23 [facility] 10-06-[address] ALLEN'S POST OPERATIVE SHOULDER INSTRUCTIONS: SURGEON'S WRITTEN INSTRUCTIONS: 1. If you have been given a cryo cuff after surgery you should use it as much as possible for the first 24-48 hours. After that it is optional. TIP: Many patients prefer to use it a little longer because it helps reduce pain. 2. You should wiggle your fingers frequently. 3. Change your dressings in 1 day. If steri-strips have been applied DO NOT remove them. When the wound is clean and dry you may leave it open to air but again DO NOT remove any steri-strips that have been applied. 4. You may shower in 1 day but do not let the water stream directly strike the wound. 5. Do pendulum exercises for at least 10 minutes twice a day. 6. If you have any problems or concerns, please call the office at [phone]. 7. Follow up as scheduled. [facility] 10-06-2023 Note [facility] Clinical Discharge Summary PERSON INFORMATION Name EMILE CHILDERS Age 78 Years 1945 Sex FEMALE Language Czech PCP ALEIDA PUTNAM MD Marital Status Phone Med Service Observation Acct# Arrival 10/05/2023 06:26:06 Visit Reason SURGERY - RIGHT REVERSE TOTAL SHOULDER Acuity LOS 000 26:53 Address: [address] [place] [address] Comment: PROVIDER INFORMATION VITALS INFORMATION Vital Sign Triage Latest Temp Oral 36.3 DegC 36.7 DegC Temp Temporal 36.2 DegC 36.0 DegC Temp Intravascular Temp Axillary Temp Rectal 02 Sat 100 % 91 % Respiratory Rate 16 br/min 16 br/min Peripheral Pulse Rate 76 bpm 77 bpm Apical Heart Rate Blood Pressure 131 mmHg / 66 mmHg 143 mmHg / 78 mmHg Comment: MEDICAL INFORMATION Allergy Info: morphine Medication List: Medications That Were Updated - Follow Below Instructions Other Medications Updated: amoxicillin (amoxicillin 500 mg oral capsule) 4 cap(s) Oral (given by mouth) As Directed. 1 HOUR PRIOR TO DENTAL TREATMENT. Medications to Continue That Have Not Changed Other Medications ALPRAZolam (ALPRAZolam 0.25 mg oral tablet) 1 tab(s) Oral (given by mouth) 2 times per day. atorvastatin (atorvastatin 40 mg oral tablet) 1 tab(s) Oral (given by mouth) every day. calcium-vitamin D (Caltrate 600 + D oral tablet) 1 tab(s) Oral (given by mouth) 2 times per day. chondroitin-glucosamine (Abdon Move Free 500 mg-400 mg oral tablet) 1 tab(s) Oral (given by mouth) every day. esomeprazole (NexIUM 24HR 20 mg oral delayed release capsule) 1 tab(s) Oral (given by mouth) every day. ferrous sulfate (ferrous sulfate 325 mg (65 mg elemental iron) oral delayed release tablet) 1 tab(s) Oral (given by mouth) every day. irbesartan (irbesartan 300 mg oral tablet) 1 tab(s) Oral (given by mouth) every day. levothyroxine (levothyroxine 200 mcg (0.2 mg) oral tablet) 1 tab(s) Oral (given by mouth). takes tues, wed, thurs, sat, and sun takes it 5 times a week. multivitamin with minerals (Centrum Silver oral tablet) 1 tab(s) Oral (given by mouth) every day. multivitamin with minerals (PreserVision AREDS 2 oral capsule) 1 cap(s) Oral (given by mouth) 2 times per day. ubiquinone (CoQ10 100 mg oral capsule) 2 tab(s) Oral (given by mouth) every day. Comment: Lab and Radiology Results Laboratory or Other Results This Visit (last charted value for your 10/05/2023 visit) No Laboratory or Other Results This Visit DIET & ACTIVITY Patient Activity Level: As Tolerated Patient Diet: Regular Patient Activity Restrictions: DISCHARGE INFORMATION Discharge Disposition: Discharge Location: DEPART REASON INCOMPLETE INFORMATION PATIENT EDUCATION INFORMATION Instructions: Tiffany- Post Op Shoulder (CUSTOM) Follow up: With: Address: When: Arely Allen [address] [place] [address], [address] [place] [id number] Business (1) 10/13/2023 11:00 AM DIAGNOSIS Arthritis of right shoulder region Comment: PHYS DOC NOTES [facility] 10-05-2023 Note [id number] [facility] Evaluation note No assessment inform ation [facility] Work Phone: Evaluation note Diagnosis Encounter for gynecological examination without abnormal finding Encounter for Papanicolaou smear of cervix Breast cancer screening by mammogram [facility] Diagnosis Eczema, unspecified type- Primary Type 2 diabetes mellitus without complication, with long-term current use of insulin ([facility]) Hypertension due to endocrine disorder ([facility]) Dry mouth Disturbance of salivary secretion Anxiety Anxiety state, unspecified Routine general medical examination at health care facility- Primary Routine general medical examination at a health care facility Abnormal glucose tolerance test Impaired glucose tolerance test Benign essential hypertension ([facility]) Essential hypertension, benign Medicare annual wellness visit, subsequent Type 2 diabetes mellitus without complication, with long-term current use of insulin ([facility]) Acquired hypothyroidism (CMS/[facility]) Unspecified hypothyroidism Pure hypercholesterolemia ([facility]) Pure hypercholesterolemia Type 2 diabetes mellitus with stage 2 chronic kidney disease, without long-term current use of insulin ([facility]) Chronic kidney disease, stage 2 (mild) (N18.2) Estrogen deficiency 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, right- Primary [facility] Diagnosis Eczema, unspecified type- Primary Type 2 diabetes mellitus without complication, with long-term current use of insulin (CMS/[facility]) Hypertension due to endocrine disorder (CMS/HCC) Dry mouth Disturbance of salivary secretion Anxiety Anxiety state, unspecified Routine general medical examination at health care facility- Primary Routine general medical examination at a health care facility Abnormal glucose tolerance test Impaired glucose tolerance test Benign essential hypertension (CMS/[facility]) Essential hypertension, benign Medicare annual wellness visit, subsequent Type 2 diabetes mellitus without complication, with long-term current use of insulin ([facility]) Acquired hypothyroidism ([facility]) Unspecified hypothyroidism Pure hypercholesterolemia ([facility]) Pure hypercholesterolemia Type 2 diabetes mellitus with stage 2 chronic kidney disease, without long-term current use of insulin ([facility]) Chronic kidney disease, stage 2 (mild) (N18.2) Estrogen deficiency Other ovarian failure Type 2 diabetes mellitus without complication, without long-term current use of insulin ([facility])- Primary Pain due to onychomycosis of toenails of both feet Venous insufficiency Unspecified venous (peripheral) insufficiency [facility] Diagnosis S/P reverse total shoulder arthroplasty, right- Primary Acute post-operative pain Type 2 diabetes mellitus without complication, without long-term current use of insulin ([facility])- Primary Onychomycosis Dermatophytosis of nail Toe pain, bilateral Venous insufficiency Unspecified venous (peripheral) insufficiency [facility]* Diagnosis Type 2 diabetes mellitus without complication, without long-term current use of insulin ([facility])- Primary Onychomycosis Dermatophytosis of nail Toe pain, bilateral Venous insufficiency Unspecified venous (peripheral) insufficiency [facility]* Diagnosis S/P reverse total shoulder arthroplasty, right Arthritis of right shoulder region documented [facility]* Diagnosis Eczema, unspecified type- Primary Type 2 diabetes mellitus without complication, with long-term current use of insulin ([facility]) Hypertension due to endocrine disorder ([facility]) Dry mouth Disturbance of salivary secretion Anxiety Anxiety state, unspecified Routine general medical examination at health care facility- Primary Routine general medical examination at a health care facility Abnormal glucose tolerance test Impaired glucose tolerance test Benign essential hypertension (CMS/HCC) Essential hypertension, benign Medicare annual wellness visit, subsequent Type 2 diabetes mellitus without complication, with long-term current use of insulin ([facility]) Acquired hypothyroidism (/HCC) Unspecified hypothyroidism Pure hypercholesterolemia ([facility]) Pure hypercholesterolemia Type 2 diabetes mellitus with stage 2 chronic kidney disease, without long-term current use of insulin (CMS/HCC) Chronic kidney disease, stage 2 (mild) (N18.2) Estrogen deficiency Other ovarian failure Anxiety Anxiety state, unspecified documented [facility] encounter [facility]* Diagnosis Eczema, unspecified type- Primary Type 2 diabetes mellitus without complication, with long-term current use of insulin (CMS/[facility]) Hypertension due to endocrine disorder (CMS/HCC) Dry mouth Disturbance of salivary secretion Anxiety Anxiety state, unspecified Routine general medical examination at health care facility- Primary Routine general medical examination at a health care facility Abnormal glucose tolerance test Impaired glucose tolerance test Benign essential hypertension (CMS/HCC) Essential hypertension, benign Medicare annual wellness visit, subsequent Type 2 diabetes mellitus without complication, with long-term current use of insulin (CMS/[facility]) Acquired hypothyroidism (CMS/HCC) Unspecified hypothyroidism Pure hypercholesterolemia (CMS/HCC) Pure hypercholesterolemia Type 2 diabetes mellitus with stage 2 chronic kidney disease, without long-term current use of insulin (CMS/HCC) Chronic kidney disease, stage 2 (mild) (N18.2) Estrogen deficiency Other ovarian failure Type 2 diabetes mellitus without complication, without long-term current use of insulin (CMS/HCC)- Primary Pain due to onychomycosis of toenails of both feet Venous insufficiency Unspecified venous (peripheral) insufficiency S/P reverse total shoulder arthroplasty, right- Primary documented in this encounter [facility]* Diagnosis Eczema, unspecified type- Primary Type 2 diabetes mellitus without complication, with long-term current use of insulin (CMS/[facility]) Hypertension due to endocrine disorder (CMS/HCC) Dry mouth Disturbance of salivary secretion Anxiety Anxiety state, unspecified Routine general medical examination at health care facility- Primary Routine general medical examination at a health care facility Abnormal glucose tolerance test Impaired glucose tolerance test Benign essential hypertension (CMS/HCC) Essential hypertension, benign Medicare annual wellness visit, subsequent Type 2 diabetes mellitus without complication, with long-term current use of insulin (CMS/HCC) Acquired hypothyroidism (CMS/HCC) Unspecified hypothyroidism Pure hypercholesterolemia (CMS/HCC) Pure hypercholesterolemia Type 2 diabetes mellitus with stage 2 chronic kidney disease, without long-term current use of insulin (CMS/HCC) Chronic kidney disease, stage 2 (mild) (N18.2) Estrogen deficiency 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, right- Primary Arthritis of right shoulder region documented in [facility]* Diagnosis Eczema, unspecified type- Primary Type 2 diabetes mellitus without complication, with long-term current use of insulin Hypertension due to endocrine disorder (CMS/HCC) Dry mouth Disturbance of salivary secretion Anxiety Anxiety state, unspecified Routine general medical examination at health care facility- Primary Routine general medical examination at a health care facility Abnormal glucose tolerance test Impaired glucose tolerance test Benign essential hypertension (CMS/HCC) Essential hypertension, benign Medicare annual wellness visit, subsequent Type 2 diabetes mellitus without complication, with long-term current use of insulin Acquired hypothyroidism (CMS/HCC) Unspecified hypothyroidism Pure hypercholesterolemia (CMS/HCC) Pure hypercholesterolemia Type 2 diabetes mellitus with stage 2 chronic kidney disease, without long-term current use of insulin (CMS/HCC) Chronic kidney disease, stage 2 (mild) (N18.2) Estrogen deficiency Other ovarian failure Type 2 diabetes mellitus without complication, without long-term current use of insulin- Primary Pain due to onychomycosis of toenails of both feet Venous insufficiency Unspecified venous (peripheral) insufficiency documented [facility]* Diagnosis Eczema, unspecified type- Primary Type 2 diabetes mellitus without complication, with long-term current use of insulin Hypertension due to endocrine disorder (CMS/HCC) Dry mouth Disturbance of salivary secretion Anxiety Anxiety state, unspecified Routine general medical examination at health care facility- Primary Routine general medical examination at a health care facility Abnormal glucose tolerance test Impaired glucose tolerance test Benign essential hypertension (CMS/HCC) Essential hypertension, benign Medicare annual wellness visit, subsequent Type 2 diabetes mellitus without complication, with long-term current use of insulin Acquired hypothyroidism (CMS/HCC) Unspecified hypothyroidism Pure hypercholesterolemia (CMS/HCC) Pure hypercholesterolemia Type 2 diabetes mellitus with stage 2 chronic kidney disease, without long-term current use of insulin (CMS/HCC) Chronic kidney disease, stage 2 (mild) (N18.2) Estrogen deficiency Other ovarian failure Anxiety Anxiety state, unspecified [facility]* Diagnosis Eczema, unspecified type- Primary Type 2 diabetes mellitus without complication, with long-term current use of insulin Hypertension due to endocrine disorder (CMS/HCC) Dry mouth Disturbance of salivary secretion Anxiety Anxiety state, unspecified Routine general medical examination at health care facility- Primary Routine general medical examination at a health care facility Abnormal glucose tolerance test Impaired glucose tolerance test Benign essential hypertension (CMS/HCC) Essential hypertension, benign Medicare annual wellness visit, subsequent Type 2 diabetes mellitus without complication, with long-term current use of insulin Acquired hypothyroidism (CMS/HCC) Unspecified hypothyroidism Pure hypercholesterolemia (CMS/HCC) Pure hypercholesterolemia Type 2 diabetes mellitus with stage 2 chronic kidney disease, without long-term current use of insulin (CMS/HCC) Chronic kidney disease, stage 2 (mild) (N18.2) Estrogen deficiency Other ovarian failure Routine general medical examination at health care facility- Primary Routine general medical examination at a health care facility Benign essential hypertension (CMS/HCC) Essential hypertension, benign Acquired hypothyroidism (CMS/HCC) Unspecified hypothyroidism Type 2 diabetes mellitus without complication, with long-term current use of insulin Pure hypercholesterolemia (CMS/HCC) Pure hypercholesterolemia Medicare annual wellness visit, subsequent Primary hypertension (CMS/HCC) Unspecified essential hypertension [facility]* Diagnosis Eczema, unspecified type- Primary Type 2 diabetes mellitus without complication, with long-term current use of insulin (HCC) Hypertension due to endocrine disorder Dry mouth Disturbance of salivary secretion Anxiety Anxiety state, unspecified Routine general medical examination at health care facility- Primary Routine general medical examination at a [facility] Abnormal glucose tolerance test Impaired glucose tolerance test Benign essential hypertension Essential hypertension, benign Medicare annual wellness visit, subsequent Type 2 diabetes mellitus without complication, with long-term current use of insulin (HCC) Acquired hypothyroidism Unspecified hypothyroidism Pure hypercholesterolemia Pure hypercholesterolemia Type 2 diabetes mellitus with stage 2 chronic kidney disease, without long-term current use of insulin (HCC) Chronic kidney disease, stage 2 (mild) (N18.2) Estrogen deficiency Other ovarian failure Routine general medical examination at [facility] care facility- Primary Routine general medical examination at a [facility] facility Benign essential hypertension Essential hypertension, benign Acquired hypothyroidism Unspecified hypothyroidism Type 2 diabetes mellitus without complication, with long-term current use of insulin (HCC) Pure hypercholesterolemia Pure hypercholesterolemia Medicare annual wellness visit, subsequent Primary hypertension Unspecified essential hypertension Type 2 diabetes mellitus without complication, without long-term current use of insulin ([facility])- Primary Pain due to onychomycosis of toenails of both feet Venous insufficiency Unspecified venous (peripheral) insufficiency [facility]* Diagnosis Eczema, unspecified type- Primary Type 2 diabetes mellitus without complication, with long-term current use of insulin (HCC) Hypertension due to endocrine disorder Dry mouth Disturbance of salivary secretion Anxiety Anxiety state, unspecified Routine general medical examination at health care facility- Primary Routine general medical examination at a [facility] Abnormal glucose tolerance test Impaired glucose tolerance test Benign essential hypertension Essential hypertension, benign Medicare annual wellness visit, subsequent Type 2 diabetes mellitus without complication, with long-term current use of insulin (HCC) Acquired hypothyroidism Unspecified hypothyroidism Pure hypercholesterolemia Pure hypercholesterolemia Type 2 diabetes mellitus with stage 2 chronic kidney disease, without long-term current use of insulin (HCC) Chronic kidney disease, stage 2 (mild) (N18.2) Estrogen deficiency Other ovarian failure Routine general medical examination at [facility]- Primary Routine general medical examination at a [facility] Benign essential hypertension Essential hypertension, benign Acquired hypothyroidism Unspecified hypothyroidism Type 2 diabetes mellitus without complication, with long-term current use of insulin (HCC) Pure hypercholesterolemia Pure hypercholesterolemia Medicare annual wellness visit, subsequent Primary hypertension Unspecified essential hypertension Anxiety Anxiety state, unspecified [facility] Diagnosis Eczema, unspecified type- Primary Type 2 diabetes mellitus without complication, with long-term current use of insulin (HCC) Hypertension due to endocrine disorder Dry mouth Disturbance of salivary secretion Anxiety Anxiety state, unspecified Routine general medical examination at [facility]- Primary Routine general medical examination at [facility] Abnormal glucose tolerance test Impaired glucose tolerance test Benign essential hypertension Essential hypertension, benign Medicare annual wellness visit, subsequent Type 2 diabetes mellitus without complication, with long-term current use of insulin (HCC) Acquired hypothyroidism Unspecified hypothyroidism Pure hypercholesterolemia Pure hypercholesterolemia Type 2 diabetes mellitus with stage 2 chronic kidney disease, without long-term current use of insulin (HCC) Chronic kidney disease, stage 2 (mild) (N18.2) Estrogen deficiency Other ovarian failure Routine general medical examination at [facility]- Primary Routine general medical examination at [facility] Benign essential hypertension Essential hypertension, benign Acquired hypothyroidism Unspecified hypothyroidism Type 2 diabetes mellitus without complication, with long-term current use of insulin (HCC) Pure hypercholesterolemia Pure hypercholesterolemia Medicare annual wellness visit, subsequent Primary hypertension Unspecified essential hypertension Right knee pain, unspecified chronicity- Primary Left hip pain Pain in joint, pelvic region and thigh S/P total knee replacement, left Status post total right knee replacement Status post total hip replacement, left Left knee pain, unspecified chronicity Right shoulder pain, unspecified chronicity documented in this [facility]* Diagnosis Eczema, unspecified type- Primary Type 2 diabetes mellitus without complication, with long-term current use of insulin (HCC) Hypertension due to endocrine disorder Dry mouth Disturbance of salivary secretion Anxiety Anxiety state, unspecified Routine general medical examination at health care facility- Primary Routine general medical examination at a [facility] facility Abnormal glucose tolerance test Impaired glucose tolerance test Benign essential hypertension Essential hypertension, benign Medicare annual wellness visit, subsequent Type 2 diabetes mellitus without complication, with long-term current use of insulin (HCC) Acquired hypothyroidism Unspecified hypothyroidism Pure hypercholesterolemia Pure hypercholesterolemia Type 2 diabetes mellitus with stage 2 chronic kidney disease, without long-term current use of insulin (HCC) Chronic kidney disease, stage 2 (mild) (N18.2) Estrogen deficiency Other ovarian failure Routine general medical examination at health care facility- Primary Routine general medical examination at a [facility] Benign essential hypertension Essential hypertension, benign Acquired hypothyroidism Unspecified hypothyroidism Type 2 diabetes mellitus without complication, with long-term current use of insulin (HCC) Pure hypercholesterolemia Pure hypercholesterolemia Medicare annual wellness visit, subsequent Primary hypertension Unspecified essential hypertension Acquired deformity of left toe- Primary Type 2 diabetes mellitus without complication, without long-term current use of insulin ([facility]) Pain due to onychomycosis of toenails of both feet Venous insufficiency Unspecified venous (peripheral) insufficiency documented in this [facility]* Diagnosis Eczema, unspecified type- Primary Type 2 diabetes mellitus without complication, with long-term current use of insulin (HCC) Hypertension due to endocrine disorder Dry mouth Disturbance of salivary secretion Anxiety Anxiety state, unspecified Routine general medical examination at health care facility- Primary Routine general medical examination at a [facility] Abnormal glucose tolerance test Impaired glucose tolerance test Benign essential hypertension Essential hypertension, benign Medicare annual wellness visit, subsequent Type 2 diabetes mellitus without complication, with long-term current use of insulin (HCC) Acquired hypothyroidism Unspecified hypothyroidism Pure hypercholesterolemia Pure hypercholesterolemia Type 2 diabetes mellitus with stage 2 chronic kidney disease, without long-term current use of insulin (HCC) Chronic kidney disease, stage 2 (mild) (N18.2) Estrogen deficiency Other ovarian failure Routine general medical examination at health care facility- Primary Routine general medical examination at a [facility] Benign essential hypertension Essential hypertension, benign Acquired hypothyroidism Unspecified hypothyroidism Type 2 diabetes mellitus without complication, with long-term current use of insulin (HCC) Pure hypercholesterolemia Pure hypercholesterolemia Medicare annual wellness visit, subsequent Primary hypertension Unspecified essential hypertension Acquired hypothyroidism- Primary Unspecified hypothyroidism Diet-controlled diabetes mellitus (HCC) 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) Type 2 diabetes mellitus with diabetic chronic kidney disease (HCC) 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 female that presents today with a CC of elongated, thick nails. Pt states nails have been elongated and thick for many years and cause pain with ambulation in shoegear. Pt has tried previous treatment with minimal relief. Pt presents today for nail care and treatment. Patient is DM2 Pt also has history of venous stasis to b/l lower extremities. 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 Cataract Chicken pox Diabetes type 2, controlled ([facility]) Hyperlipidemia ([facility]) Hypertension ([facility]) Macular degeneration Measles Mumps No intracranial Hemorrhage or CT evidence of acute ischemia 09/12/2020 Osteoarthritis 2012 Screening 2013 Thyroid disease ([facility]) Type 2 diabetes mellitus ([facility]) Medications: Current Outpatient Medications: ALPRAZolam (Xanax) 0.25 MG tablet, Take 1 tablet (0.25 mg) by mouth in the morning and 1 tablet (0.25 mg) before bedtime. This not due at this time. She just got a 90 day supply on 11/25. May fill when due., Disp: 180 tablet, Rfl: 0 amoxicillin (Amoxil) 500 MG capsule, 2,000 mg if needed, Disp: , Rfl: atorvastatin (Lipitor) 40 MG tablet, TAKE 1 TABLET BY MOUTH IN THE MORNING, Disp: 90 tablet, Rfl: 3 Calcium Carbonate-Vit D-Min (Caltrate 600+D Plus Minerals) 600-800 MG-UNIT chewable tablet, every 12 (twelve) hours., Disp: , Rfl: esomeprazole (NexIUM) [address] capsule, 1 tab(s), Oral, Daily, 0 Refill(s), Disp: , Rfl: glucose blood (GNP True Metrix Glucose Strips) test strip, 1 each by Other route if needed (Use onestrip to test blood sugar), Disp: 100 each, Rfl: 1 irbesartan (Avapro) 300 MG tablet, TAKE 1 TABLET BY MOUTH DAILY, Disp: 90 tablet, Rfl: 3 levothyroxine (Synthroid, Levoxyl) 200 MCG tablet, Take 1 tablet (200 mcg) by mouth in the morning.Take before meals., Disp: 100 tablet, Rfl: 4 Social History: Social History Socioeconomic History Marital status: Spouse name: Not on file Number of children: Not on file Years of education: Not on file Highest education level: Not on file Occupational History Occupation: retired Tobacco Use Smoking status: Never Smokeless tobacco: Never Vaping Use Vaping status: Unknown Substance and Sexual Activity Alcohol use: Never Comment: caffeine intake: 1-2 cups per day soda,,,caffeine yes type:chocolate Drug use: Never Sexual activity: Defer Other Topics Concern Not on file Social History Narrative Daily exercise Social Drivers of Health Financial Resource Strain: Not on file Food Insecurity: Not on file Transportation Needs: Not on file Physical Activity: Not on file Stress: Not on file Social Connections: Not on file Intimate Partner Violence: Not on file Housing Stability: Not on file ROS: General: denies fever, chills, fatigue, malaise OBJECTIVE LE EXAM: DERM: Elongated thick yellow crumbly nails digits 1 through 10. Negative hair growth with thin shiny atrophic skin bilaterally. Plus one pitting edema to bilateral ankles Negative maceration or peeling between toes of feet or mid arch foot VASC: Positive DP and negative PT pedal pulses NEURO: 5.07 [place] monofilament test diminished to digits and forefoot bilaterally 125Hz tuning fork diminished to 1st MPJ bilaterally ORTHO: Positive pain on palpation to toenails of the left 1,2,3,4,5 toes and right 1,2,3,4,5 toes ASSESSMENT 1. Type 2 diabetes mellitus without complication, without long-term current use of insulin ([facility]) 2. Pain due to onychomycosis of toenails of both feet 3. Venous insufficiency PLAN Discussed proper foot care with patient today. Debride nails in length and thickness digits 1 through 10 Patient educated today on proper diabetic foot care including monitoring feet daily for any signs of infection openings in the skin or irregularities to both feet. Patient had a diabetic neurologicalexam today to both their feet and discussed proper shoe gear. Bj Tavares DPM [facility] Purpose Family History No Family History Records FoundNo Family History Records FoundNo Family History Records FoundNo Family History Records FoundNo Family History Records FoundNo Family History Records Found Advance Directives No Advanced Directives Records Found Advance Directive Response Recorded Date/ Time Advance Directives No December 11:13am Advance Directive Response Recorded Date/ Time Advance Directives No December 12:13pm Chief Complaint and Reason for Visit Chief Complaint Z12.31 Chief Complaint Admit Date z12.31 June 13, 2024 12: 32pm Additional Source Comments INFORMATION SOURCE (unrecogn ized section and content) DATE CREATED AUTHOR 02/01/2021 [facility] Specialist DATE CREATED AUTHOR AUTHOR'S ORGANIZ ATION 06/08/2021 [facility] DATE CREATED AUTHOR AUTHOR'S ORGANIZ ATION 11/01/2023 [facility] DATE CREATED AUTHOR AUTHOR'S ORGANIZ ATION 06/16/2024 [facility] DATE CREATED AUTHOR AUTHOR'S ORGANIZ ATION 10/16/2024 [facility] DATE CREATED AUTHOR AUTHOR'S ORGANIZ ATION 10/25/2024 [facility] dical Specialists EPIC Care Teams (unrecognized sec tion and content) Team Status: Active Member Role Status Dates Aleida Putnam MD Primary Care Provider Active Team Status: Inactive Member Role Status Dates Aleida Putnam MD Primary Care Provider Active S tart: June 13, 2024 End: June 13, 2024 Tio Elizabeth DO Attending Provider Active Start: June 13, 2024 End: June 13, 2024 Team Status: Inactive Member Role Status Dates Aleida Putnam MD Primary Care Provider Active Tio Elizabeth DO Attending Provider Active 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 Start Date End Date Aleida Putnam MD [address] [place] [address] PCP - General Family Medicine 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 Start Date End Date Aleida Putnam MD [address] [place] [address] PCP - General Family Medicine 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 Start Date End Date Aleida Putnam MD [address] [place] [address] PCP - General Family Medicine 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 Start Date End Date Aleida Putnam MD [address] [place] [address] PCP - General Family Medicine 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 Start Date End Date Aleida Putnam MD [address] [place] [address] PCP - General Family Medicine 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 Start Date End Date Aleida Putnam MD [address] [place] [address] PCP - General Family Medicine 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 Start Date End Date Aleida Putnam MD [address] [place] [address] PCP - General Family Medicine 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 Start Date End Date Aleida Putnam MD [address] [place] [address] PCP - General Family Medicine 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 Start Date End Date Aleida Putnam MD [address] [place] [address] PCP - General Family Medicine 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 Start Date End Date Aleida Putnam MD [address] [place] [address] PCP - General Family Medicine 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 Start Date End Date Aleida Putnam MD [address] [facility] [address] [place] [address] PCP - General Family Medicine 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 Start Date End Date Aleida Putnam MD [address] [facility] [address] [place] [address] PCP - General Family Medicine 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 Start Date End Date Aleida Putnam MD [address] [facility] [address] [place] [address] PCP - General Family Medicine 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 Start Date End Date Aleida Putnam MD [address] [facility] [address] [place] [address] PCP - General Family Medicine 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 Start Date End Date Aleida Putnam MD [address] [facility] [address] [place] [address] PCP - General Family Medicine 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 Start Date End Date Aleida Putnam MD [address] [facility] [address] [place] [address] PCP - General Family Medicine 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 Start Date End Date Aleida Putnam MD [address] [facility] [address] [place] [address] PCP - General Family Medicine 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 Start Date End Date Aleida Putnam MD [address] [facility] [address] [place] [address] PCP - General Family Medicine 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 Reason Comments Follow-up Reason Comments DM Foot Care Dm Nails Reason Onset Date Comments PO instructions 10/07/2023 Reason Comments DM Foot Care DM Nails Reason Onset Date Comments Med Refill 02/25/2024 Reason Comments DM Foot Care Dm nail care Reason Onset Date Comments Med Refill 05/30/2024 Reason Comments Medicare Annual Wellness Visit Subsequen t Reason Onset Date Comments Med Refill 08/31/2024 Reason Comments DM Foot Care Reason Comments Diabetes Last 5.8 FOR RECORDS PERTAINING TO PATIENTS WHO ARE [...] BE BASED ON THE PRIMARY CLINICAL RECORDS. [employer] provides no warranty or guarantee of the accuracy or completeness of information in this document.
== END 2024-10-31 13:45 | disposition home or self-care (01) ==
LOC: CARD 13:44
PROVIDERS: PCP Family Medicine; Visit Provider Family Medicine
DX: R01.1 Cardiac murmur, unspecified (principal)
CPT/HCPCS: 93306